=== PATIENT | female | born 1975 | race Caucasian/White ===

== ENCOUNTER 2016-07-28 11:09 | Inpatient (IN) | payer MEDICAID ==
[~2016-07-28] VITALS: Ht 177.8 cm; Wt 89.8 kg
[~2016-07-28 11:09] MED LIST: TYLENOL ES500 MG PO; UNISOM25 M1 PO
--- NOTE | 2016-07-28 11:17 | NUR ---
PT W/C ASSISTED TO BED 6.
[2016-07-28 11:19] VITALS: BP 158/107
--- NOTE | 2016-07-28 11:32 | NUR ---
40/F TO ED WITH C/O VOMITING AND ABD PAIN STARTING LAST NIGHT. PAIN 10/10. BOWEL SOUNDS PRESENT X4Q. LUNGS CLEAR BILAT. HR EVEN AND REGULAR. AAOX4. VSS. NO SIGNS OF DISTRESS.
[2016-07-28] MEDS ORDERED: PROMETHAZINE 25 MG/ML VIAL IVP ONE ×2 (11:40→13:55)
[2016-07-28] MEDS ORDERED: NACL 0.9% 1,000 ML IV ONE (11:40)
[2016-07-28] MEDS ORDERED: KETOROLAC 30 MG/ML VIAL IVP ONE (11:40)
--- NOTE | 2016-07-28 11:41 | NUR ---
Patient being evaluated by physician at bedside.
[2016-07-28] MEDS ORDERED: fentaNYL 0.05 MG/ML VIAL IVP ONE (11:50)
--- NOTE | 2016-07-28 12:38 | NUR ---
RPatient appears to be resting comfortably in bed. Vital Signs within normal limits. Respirations even and unlabored.
--- NOTE | 2016-07-28 13:18 | NUR ---
Patient appears to be resting comfortably in bed. Vital Signs within normal limits. Respirations even and unlabored.
[2016-07-28] MEDS ORDERED: cefTRIAXone 1,000 MG VIAL ONE (13:48)
--- NOTE | 2016-07-28 14:05 | NUR ---
PT REQUESTING MEDICATION FOR NAUSEA AND VOMITING
--- NOTE | 2016-07-28 14:29 | NUR ---
Patient will be admitted to care of DR MENSAH. Admited to MED SURG. Will go to room 105B. Belongings list completed. Report to MONY.
[2016-07-28] MEDS ORDERED: MORPHINE SULFATE 2 MG/ML SYR IVP PRN (14:45)
[2016-07-28] MEDS ORDERED: ONDANSETRON 4 MG/2 ML VIAL IVP PRN (14:45)
[2016-07-28] MEDS ORDERED: ACETAMINOPHEN 325 MG TAB PO PRN (14:45)
[2016-07-28] MEDS ORDERED: DOCUSATE SODIUM 100 MG GELCAP PO PRN (14:45)
[2016-07-28] MEDS ORDERED: HYDROcodone/APAP 5/325 MG 1 TAB TAB PO PRN (14:45)
[2016-07-28] MEDS ORDERED: KETOROLAC 30 MG/ML VIAL IM PRN (14:50)
[2016-07-28 15:00] VITALS: BP 128/87
--- NOTE | 2016-07-28 15:00 | NUR ---
PATIENT ADMITTED FROM ER WITH DX OF CHOLEDOCHOLITHIASIS. PATIENT AWAKE, ALERT, ORIENTED AND AMBULATORY. NO SOB. PATIENT BREATHING ON ROOM AIR. SKIN IS INTACT. IV LINE NOTED TO THE RIGHT AC SALINE LOCKED. PT C/O 10/ ABD PAIN. WILL MEDICATE. DR URIBE PRESENT AT BEDSIDE GETTING HX FROM THE PATIENT. BED LOWERED WITH CALL LIGHT WITHIN REACH. WILL CONTINUE TO MONITOR
[2016-07-28] MEDS: HYDROmorphone 1 MG/ML AMP IVP PRN ×3 (15:10→23:32)
[2016-07-28] MEDS ORDERED: NACL 0.9% IV ONE (15:20)
[2016-07-28] MEDS ORDERED: NACL 0.9% 2,000 ML IV ONE (15:45)
[2016-07-28] MEDS ORDERED: MAGNESIUM OXIDE 400 MG TAB PO SCH (16:50)
[2016-07-28] MEDS: GEMFIBROZIL 600 MG TAB PO SCH (17:32)
[2016-07-28] MEDS: NACL 0.9% 1,000 ML IV SCH (18:00)
--- NOTE | 2016-07-28 19:05 | NUR ---
BEDSIDE REPORT GIVEN TO [place] MARIN -NICCI. IVF INFUSING WELL. IN STABLE CONDITION.
--- NOTE | 2016-07-28 19:20 | NUR ---
RECEIVED PT IN STABLE CONDITION FROM AM NURSE. AWAKE,ALERT AND ORIENTED X4. MED SURG PT. AMBULATORY. WITH NO C/O PAIN AT THIS TIME. HAS IVF INFUSING WELL ON THE RT AC#20 , CLEAR AND PATENT. NPO EXCEPT MEDS DIET EXPLAINED. PLAN OF CARE DISCUSSED AND VERBALIZED UNDERSTANDING. CALL LIGHT PLACED WITHIN EASY REACH. BED ON LOW POSITION. WILL CONTINUE TO MONITOR.
[2016-07-28 19:35] VITALS: BP 148/97
[2016-07-28] MEDS: metroNIDAZOLE 500 MG/NS PREMIX 100 ML IV SCH (20:41)
[2016-07-28] MEDS: SACCHAROMYCES 250 MG CAP PO SCH (20:42)
--- NOTE | 2016-07-28 22:40 | NUR ---
PAGED DR. BUCHANAN, DR NANCI Love [facility] REPAIR . CALLED BACK . MADE AWARE THAT PT IS NPO EXCEPT MEDS AND PT WANTS TO TAKE SOME JUICE. DR. CHRISTINE SAID OK ONLY WITH ICE CHIPS.
--- NOTE | 2016-07-28 23:30 | NUR ---
IV ACCESS ON THE RT AC INFILTRATED. DISCONTINUED. STARTED A NEW IV ACCESS ON THE RT HANG#20. CLEAR AND PATENT.
[2016-07-28 23:31] VITALS: BP 126/84
--- NOTE | 2016-07-29 01:00 | NUR ---
SLEEPING AT THIS TIME. NO S/S OF ANY DISCOMFORT NOR PAIN NOTED.
[2016-07-29] MEDS: NACL 0.9% 1,000 ML IV SCH ×5 (01:07→18:48)
[2016-07-29] MEDS: HYDROmorphone 1 MG/ML AMP IVP PRN ×5 (03:42→21:49)
[2016-07-29] MEDS: metroNIDAZOLE 500 MG/NS PREMIX 100 ML IV SCH ×2 (04:52→13:13)
--- NOTE | 2016-07-29 05:00 | NUR ---
ASLEEP. NO S/S OF DISCOMFORT NOTED.
[2016-07-29] MEDS: PANTOPRAZOLE 40 MG TABEC PO SCH (06:29)
[2016-07-29] MEDS: GEMFIBROZIL 600 MG TAB PO SCH ×2 (06:29→17:06)
[2016-07-29] MEDS ORDERED: HYDROcodone/APAP 5/325 MG 1 TAB TAB PO PRN (06:35)
[2016-07-29] MEDS ORDERED: POTASSIUM CHLORIDE 20 MEQ, LIDOCAINE 1% 25 MG in NACL 0.9% 250 ML IV SCH (06:45)
[2016-07-29] MEDS ORDERED: MAGNESIUM OXIDE 400 MG TAB PO SCH (06:45)
--- NOTE | 2016-07-29 07:29 | NUR ---
C/O PAIN . MEDICATED FOR PAIN ORDERED. WILL CONTINUE TO MONITOR.
--- NOTE | 2016-07-29 07:30 | NUR ---
ASSUMED CONTINUITY OF CARE. NO SIGNS AND SYMPTOMS OF ACUTE DISTRESS NOTICED. INITIAL ASSESSMENT DONE. KEEP COMFORTABLE ON BED. EXPLAINED DIAGNOSIS, PLAN OF CARE, PAIN MANAGEMENT TEACHING, USE OF CALL LIGHT/BED/TV/BATHROOM. VERBALIZED UNDERSTANDING. CALL LIGHT WITHIN REACH.
--- NOTE | 2016-07-29 07:30 | NUR ---
ENDORSED PT IN STABLE CONDITION TO AM NURSE.
[2016-07-29] MEDS ORDERED: HYDROmorphone 1 MG/ML AMP IVP SCH (07:40)
[2016-07-29] MEDS ORDERED: SODIUM PHOS / POTASSIUM PHOS 1 PKT PDR PO SCH (07:45)
[2016-07-29 08:00] VITALS: BP 136/93
[2016-07-29] MEDS: CALCIUM CARBONATE 500 MG TAB PO SCH ×2 (08:42→20:17)
[2016-07-29] MEDS: SACCHAROMYCES 250 MG CAP PO SCH (08:42)
--- NOTE | 2016-07-29 09:03 | NUR ---
PATIENT HAS BEEN SCREENED AND CATEGORIZED MODERATE NUTRITION RISK. PATIENT WILL BE SEEN WITHIN 3-5 DAYS OF ADMISSION. 07/31/16-08/02/[address]
--- NOTE | 2016-07-29 10:42 | NUR ---
CM NOTE INITIAL REVIEW SENT TO [facility] FAX# [phone] PH# CHRIS [phone] AND TO [facility] FAX# [phone] PH# JOAN [phone]
--- NOTE | 2016-07-29 11:00 | NUR ---
DR. MCGREGOR [facility] CAME, CHECKED PT. CHART, AND SEEN PT..
--- NOTE | 2016-07-29 11:05 | NUR ---
PT TOLERATED MEDS WELL. DR MCGREGOR IN TO SEE PT. MD TO PERFORM EGD TODAY.
[2016-07-29 11:35] VITALS: BP 128/86
--- NOTE | 2016-07-29 11:43 | NUR ---
VSS. PT C/0 9/10 PAIN TO ABDOMEN. ADMINISTERED DILAUDID ORDERED. WILL CONTINUE TO MONITOR.
[2016-07-29] MEDS: SODIUM PHOS / POTASSIUM PHOS 1 PKT PDR PO SCH ×2 (12:00→17:34)
--- NOTE | 2016-07-29 13:16 | NUR ---
PT TOLERATED MEDS WELL. WILL CONTINUE TO MONITOR.
[2016-07-29] MEDS ORDERED: diphenhydrAMINE 50 MG/ML VIAL ONE (13:59)
[2016-07-29] MEDS ORDERED: MIDAZOLAM 2 MG/2 ML VIAL ONE (13:59)
[2016-07-29] MEDS ORDERED: fentaNYL 0.05 MG/ML VIAL ONE (13:59)
--- NOTE | 2016-07-29 14:30 | NUR ---
PT TOLERATED MEDS WELL. WILL CONTINUE TO MONITOR.
--- NOTE | 2016-07-29 15:15 | NUR ---
PATIENT TAKEN OUT OF UNIT FOR SURGERY.
[2016-07-29] MEDS ORDERED: MIDAZOLAM 2 MG/2 ML VIAL IVP ONE (15:35)
[2016-07-29] MEDS ORDERED: diphenhydrAMINE 50 MG/ML VIAL IVP ONE (15:35)
[2016-07-29] MEDS ORDERED: fentaNYL 0.05 MG/ML VIAL IVP ONE (15:35)
--- NOTE | 2016-07-29 15:42 | NUR ---
BACK FROM GI VIA GURNEY. NO SIGNS AND SYMPTOMS OF ACUTE DISTRESS NOTED. KEEP COMFORTABLE ON BED. EXPLAINED DIAGNOSIS, POST-OP CARE, PAIN MANAGEMENT TEACHING, USE OF CALL LIGHT/BED/TV/BATHROOM. VERBALIZED UNDERSTANDING. CALL LIGHT WITHIN REACH.
[2016-07-29 16:00] VITALS: BP 137/97
[2016-07-29] MEDS: SENNA 8.6 MG TAB PO SCH (17:06)
[2016-07-29] MEDS: METOCLOPRAMIDE 10 MG/2 ML INJ VIAL IVP SCH (17:08)
--- NOTE | 2016-07-29 17:10 | NUR ---
ADMINISTERED REGLAN ORDERED. PT TOLERATED WELL. PT SLEEPING, NO DISTRESS NOTED AT THIS TIME.
--- NOTE | 2016-07-29 17:52 | NUR ---
PT C/O 01/23 PAIN. BP 128/75, HR 75. ADMINISTERED DILAUDID ORDERED. PT TOLERATED WELL.
--- NOTE | 2016-07-29 19:15 | NUR ---
BEDSIDE REPORT GIVEN TO NEENA DAWSON -NICCI. IVF INFUSING WELL. IN STABLE CONDITION.
--- NOTE | 2016-07-29 19:16 | NUR ---
RECEIVED REPORT FROM NOLAN DAVIES FOR CONTINUITY OF CARE. PATIENT IS A&OX4, DISCUSSED PLAN OF CARE WITH PATIENT, VERBALIZED UNDERSTANDING. SHIFT ASSESSMENT DONE, VS TAKEN, PT IS IN STABLE CONDITION. NO S/S OF RESPIRATORY DISTRESS NOTED ON ROOM AIR. PATIENT STATES TOLERABLE PAIN IN ABDOMEN. SKIN INTACT. IV TO RT HAND 20 GAUGE PATENT AND INFUSING FLUIDS WELL. SAFETY PRECAUTIONS ENFORCED. DISCUSSED WITH PATIENT THAT SHE WILL BE NPO AFTER MIDNIGHT PER MD ORDER, VERBALIZED UNDERSTANDING. CALL LIGHT PLACED WITHIN REACH. WILL CONTINUE TO MONITOR.
[2016-07-29 20:00] VITALS: BP 129/77
--- NOTE | 2016-07-29 20:17 | NUR ---
DUE MEDICATIONS, TOLERATED WELL. PT REQUESTS IV PAIN MEDICATION, EDUCATED PT IT IS NOT DUE, VERBALIZED UNDERSTANDING. CALL LIGHT WITHIN REACH.
[2016-07-29] MEDS ORDERED: AMITRIPTYLINE 25 MG TAB PO SCH (21:00)
--- NOTE | 2016-07-29 21:00 | NUR ---
PT AMBULATING TO RESTROOM, VOIDED. C/O PAIN BUT REFUSED P.O. MEDS WANTS TO WAIT FOR IV MEDICATION. PROVIDED CHICKEN BROTH PER FULL LIQUID DIET. CALL LIGHT WITHIN REACH.
--- NOTE | 2016-07-29 21:49 | NUR ---
MEDICATED PATIENT FOR 10/10 ABDOMINAL PAIN. VS STABLE. CALL LIGHT WITHIN REACH.
[2016-07-30] VITALS: BP 109/73
[2016-07-30] MEDS: SODIUM PHOS / POTASSIUM PHOS 1 PKT PDR PO SCH ×2 (00:22→06:27)
--- NOTE | 2016-07-30 00:24 | NUR ---
VS TAKEN, STABLE. PT IS SLEEPING BUT WAKES UP EASILY. REINFORCED NPO STATUS. NO S/S OF DISTRESS OR DISCOMFORT NOTED. CALL LIGHT WITHIN REACH.
[2016-07-30] MEDS: HYDROmorphone 1 MG/ML AMP IVP PRN ×2 (02:07→06:27)
--- NOTE | 2016-07-30 02:07 | NUR ---
MEDICATED PATIENT FOR PAIN. CALL LIGHT WITHIN REACH.
--- NOTE | 2016-07-30 04:12 | NUR ---
PT IS SLEEPING. NO S/S OF DISTRESS NOTED. CALL LIGHT WITHIN REACH.
[2016-07-30] MEDS: PANTOPRAZOLE 40 MG TABEC PO SCH (06:27)
--- NOTE | 2016-07-30 06:30 | NUR ---
DUE MEDICATIONS ADMINISTERED, TOLERATED WELL. PT C/O 12/23 PAIN, MEDICATED PER MD ORDER. DOCTORS IN TO SEE PATIENT.
[2016-07-30] MEDS ORDERED: ALUMINUM HYD/MAG/SIMETHICONE 30 ML UDC PO SCH (07:00)
[2016-07-30] MEDS ORDERED: DICYCLOMINE 10 MG CAP PO SCH (07:00)
[2016-07-30] MEDS ORDERED: MAGNESIUM OXIDE 400 MG TAB PO SCH (07:17)
--- NOTE | 2016-07-30 07:25 | NUR ---
ENDORSED PATIENT TO KARINA GRAJEDA FOR CONTINUITY OF CARE, PATIENT IS IN STABLE CONDITION.
--- NOTE | 2016-07-30 07:26 | NUR ---
RECEIVED REPORT FROM THE LOOM SETTER NURSE AT BEDSIDE FOR CONTINUITY OF CARE. PT IS ALERT AND ORIENTED. SHE HAS SOME ABDOMINAL PAIN. NOTED IV ON R HAND 20G NS AT 80ML/HR. PT'S SKIN IS INTACT. CAME INTO SEE PT EARLY THIS MORNING. PER MD, D/C THIS MORNING AFTER BREAKFAST. NO OTHER COMPLAINTS. ALL SAFETY MEASURES IN PLACE. WILL CONTINUE TO MONITOR PT.
[2016-07-30] MEDS ORDERED: PROTONIX40 MG PO (07:41)
[2016-07-30] MEDS ORDERED: NORCO 10-325 T1 EACH PO (07:42)
[2016-07-30] MEDS ORDERED: COLACE100 M1 PO (07:43)
[2016-07-30 08:00] VITALS: BP 125/83
[2016-07-30] MEDS: CALCIUM CARBONATE 500 MG TAB PO SCH (08:26)
[2016-07-30] MEDS: METOCLOPRAMIDE 10 MG/2 ML INJ VIAL IVP SCH (08:27)
[2016-07-30] MEDS: GEMFIBROZIL 600 MG TAB PO SCH (08:27)
[2016-07-30] MEDS: SENNA 8.6 MG TAB PO SCH (08:28)
[2016-07-30] MEDS ORDERED: LACTOBACILLUS RHAMNOSUS GG 1 EACH CAP PO SCH (09:00)
--- NOTE | 2016-07-30 10:00 | NUR ---
GAVE PT HER DC INSTRUCTIONS. ANSWERED ALL QUESTIONS. PT VERBALIZED UNDERSTANDING. SIGNED APPROPRIATE FORMS. REMOVED HER IV, CANNULA INTACT. REMOVED HER ARM BAND. REMINDED HER TO FOLLOW UP WITH HER PCP IN 3 DAYS, P/U HER RX AT THE PHARMACY AND RESUME HOME MEDS. PT STABLE. CHANGED INTO HER PERSONAL CLOTHES. WILL GATHER HER THINGS. FAMILY MEMBER WENT OUT TO GET THE CAR. WILL HAVE GARCÍA DEGROOT WHEEL PT OUT.
--- NOTE | 2016-07-30 10:05 | NUR ---
CM NOTE CONCURRENT REVIEW SENT TO [facility] FAX# [phone] PH# CHRIS [phone] AND TO [facility] FAX# [phone] PH# JOAN [phone]
--- NOTE | 2016-07-30 10:15 | NUR ---
GARCÍA DEGROOT IS WHEELING PT OUT. HER FAMILY MEMBER IS IN THE PARKING LOT WAITING FOR HER. PT IS STABLE. TAKING ALL HER PERSONAL BELONGINGS WITH HER INCLUDING D/C PACKET.
== END 2016-07-30 10:15 | disposition home or self-care (01) | DRG 241 ==
LOC: MED 11:09 → MTU 14:13
PROVIDERS: ADMIT Family Medicine; ATTEND Family Medicine
PROC: 0DB68ZX Excision of Stomach, Via Natural or Artificial Opening Endoscopic, Diagnostic (ICD-10-PCS; principal; 2016-07-29 14:30)
DX: K29.00 Acute gastritis without bleeding (principal); K76.0 Fatty (change of) liver, not elsewhere classified; E83.42 Hypomagnesemia; F41.9 Anxiety disorder, unspecified; E87.6 Hypokalemia; E83.51 Hypocalcemia; E83.39 Other disorders of phosphorus metabolism; D53.9 Nutritional anemia, unspecified; E66.9 Obesity, unspecified; F12.90 Cannabis use, unspecified, uncomplicated; F11.90 Opioid use, unspecified, uncomplicated; F17.210 Nicotine dependence, cigarettes, uncomplicated; Z79.899 Other long term (current) drug therapy; Z72.89 Other problems related to lifestyle; Z68.28 Body mass index [BMI] 28.0-28.9, adult

== ENCOUNTER 2016-08-27 23:05 | Emergency (ER) | payer MEDICAID ==
[~2016-08-27] VITALS: Ht 180.3 cm; Wt 86.2 kg
[~2016-08-27 23:05] MED LIST changes: +ACET-2858 PO; +ACET-6134 PO; +DOCU-67 PO; +DOXY25TA22 PO; +PANT40EC PO; -TYLENOL ES500 MG PO; -UNISOM25 M1 PO
[2016-08-27 23:16] VITALS: BP 153/96
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
--- NOTE | 2016-08-27 23:48 | NUR ---
ANDRA PARHAM WILL SEND PATROL UNIT OUT TO [facility]
--- NOTE | 2016-08-28 00:07 | NUR ---
PT SEEN SPEAKING WITH PD OUTSIDE ER
--- NOTE | 2016-08-28 01:00 | NUR ---
PATIENT LEFT WITHOUT BEING SEEN BY DR. WINSTON. NO FURTHER CARE PROVIDED FOR PATIENT.
== END 2016-08-28 01:00 | disposition left against medical advice (07) ==
LOC: MED 23:05
DX: R42 Dizziness and giddiness (principal); Z53.21 Procedure and treatment not carried out due to patient leaving prior to being seen by health care provider

== ENCOUNTER 2016-09-30 15:54 | Emergency (ER) | payer MEDICAID ==
[~2016-09-30] VITALS: Ht 180.3 cm; Wt 108.9 kg
[~2016-09-30 15:54] MED LIST changes: -ACET-2858 PO; -ACET-6134 PO; +COLACE100 M1 PO; -DOCU-67 PO; -DOXY25TA22 PO; +NORCO 10-325 T1 EACH PO; -PANT40EC PO; +PROTONIX40 MG PO; +TYLENOL ES500 MG PO; +UNISOM25 M1 PO
[2016-09-30 16:27] VITALS: BP 151/92
--- NOTE | 2016-09-30 17:37 | NUR ---
Patient ambulated to bed 4. RN evaluating patient at bedside.
--- NOTE | 2016-09-30 17:40 | NUR ---
PT PRESENTS TO ER W/C/O RUQ PAIN X2 MONTHS. HX GALLSTONES, HTN, ANXIETY; DENIES DIARRHEA; SKIN IS PINK/WARM/DRY; AAOX4 WITH EVEN AND STEADY GAIT; LUNGS CLEAR BL; HR EVEN AND REGULAR; PT DENIES ANY FEVER, CP, SOB, OR COUGH AT THIS TIME; PATIENT STATES PAIN OF 9/10 AT THIS TIME; VSS; PATIENT POSITIONED FOR COMFORT; HOB ELEVATED; BEDRAILS UP X2; BED DOWN. ER MD MADE AWARE OF PT STATUS.
[2016-09-30] MEDS ORDERED: ONDANSETRON 4 MG/2 ML VIAL IVP ONE (17:45)
[2016-09-30] MEDS ORDERED: MORPHINE SULFATE 4 MG/ML SYR IVP ONE (17:45)
--- NOTE | 2016-09-30 18:14 | NUR ---
Patient taken to CT scan via wheelchair by tech.
--- NOTE | 2016-09-30 18:45 | NUR ---
PT WHEEL CHAIR ASSISTED TO THE RESTROOM FOR URINE SAMPLE
--- NOTE | 2016-09-30 19:12 | NUR ---
REPORT GIVEN TO NICCI MCLEAN
--- NOTE | 2016-09-30 19:22 | NUR ---
report received from NICCI HANSEN.
--- NOTE | 2016-09-30 19:23 | NUR ---
PT ALERT/ORIENTED. C/O ABD PAIN, 01/23
--- NOTE | 2016-09-30 19:57 | NUR ---
Dr. Bass re-evaluating patient at bedside.
[2016-09-30 20:16] VITALS: BP 151/92
== END 2016-09-30 20:17 | disposition home or self-care (01) ==
LOC: MED 15:54
DX: R10.9 Unspecified abdominal pain (principal); I10 Essential (primary) hypertension; F17.210 Nicotine dependence, cigarettes, uncomplicated
CPT/HCPCS: 36415; 74176; 80053; 81025; 83690; 84703; 85025; 96374; 96375; 99285; J2270; J2405

== ENCOUNTER 2017-01-05 01:15 | Emergency (ER) | payer MEDICAID ==
[~2017-01-05] VITALS: Ht 180.3 cm; Wt 92.1 kg
[~2017-01-05 01:15] MED LIST changes: +ACET-2858 PO; +ACET-6134 PO; -COLACE100 M1 PO; +DOCU-67 PO; +DOXY25TA22 PO; -NORCO 10-325 T1 EACH PO; +PANT40EC PO; -PROTONIX40 MG PO; -TYLENOL ES500 MG PO; -UNISOM25 M1 PO
[2017-01-05 01:24] VITALS: BP 160/105
[2017-01-05] MEDS ORDERED: LORazepam 1 MG TAB PO ONE (04:45)
[2017-01-05 05:38] LABS: BARBITURATE, URINE NEG. ng/ml (NEG <=200); BENZODIAZEPINE, URINE NEG. ng/mL (NEG <=200); CANNABINOID, URINE POS. ng/mL (NEG <=50); COCAINE, URINE NEG. ng/mL (NEG <=300); OPIATE, URINE NEG. ng/mL (NEG <=2000); PHENCYCLIDINE SCREEN,URINE NEG. ng/mL (NEG <=25)
== END 2017-01-05 05:50 | disposition home or self-care (01) ==
LOC: MED 01:15
DX: L97.909 Non-pressure chronic ulcer of unspecified part of unspecified lower leg with unspecified severity (principal); F15.10 Other stimulant abuse, uncomplicated; I10 Essential (primary) hypertension
CPT/HCPCS: 80305; 99283

== ENCOUNTER 2018-03-05 09:07 | Emergency (ER) | payer MEDICAID ==
[~2018-03-05] VITALS: Ht 180.3 cm; Wt 77.6 kg
[~2018-03-05 09:07] MED LIST changes: -ACET-2858 PO; +DOCU-299 PO; -DOCU-67 PO; +HYDR-5092 PO
[2018-03-05 09:18] VITALS: BP 150/105
[2018-03-05 09:49] VITALS: BP 150/105
== END 2018-03-05 09:50 | disposition left against medical advice (07) ==
LOC: MED 09:07
DX: R51 Headache (principal); K13.79 Other lesions of oral mucosa; Z53.21 Procedure and treatment not carried out due to patient leaving prior to being seen by health care provider; Y04.0XXA Assault by unarmed brawl or fight, initial encounter

== ENCOUNTER 2021-07-13 12:47 | Inpatient (IN) | payer MEDICAID, SELFPAY ==
[~2021-07-13] VITALS: Ht 180.3 cm; Wt 99.8 kg
[2021-07-13 12:47] VITALS: BP 111/55
[~2021-07-13 12:47] MED LIST changes: -ACET-6134 PO; +AMIT25TA29 PO; -DOCU-299 PO; -DOXY25TA22 PO; +FURO40TA9 PO; -HYDR-5092 PO; +LEVO750T51 PO; +SPIR50TA4 PO; +SULF-59 PO
--- NOTE | 2021-07-13 12:47 | NUR ---
45 y/o f biba for flu type symptoms x 2 days, +NVD, SOB, COUGH, FEVER NKDA PMD: CHF, GALBLADDER REMOVAL X 1 MONTH AGO AT REPLACED BY [facility]
--- NOTE | 2021-07-13 12:48 | NUR ---
SUZANNE JACKMAN VIA GURNEY TO BED 02.
--- NOTE | 2021-07-13 14:04 | NUR ---
DR HUMPHREY AT BEDSIDE FOR MSE
[2021-07-13] MEDS ORDERED: PANTOPRAZOLE 40 MG INJ VIAL IVP ONE (14:10)
[2021-07-13] MEDS ORDERED: MORPHINE SULFATE 4 MG/ML SYR IVP ONE (14:10)
[2021-07-13] MEDS ORDERED: ONDANSETRON 4 MG/2 ML VIAL IVP ONE (14:10)
--- NOTE | 2021-07-13 14:32 | NUR ---
ekg being done by rn students
[2021-07-13 14:37] LABS: BASOPHILS % (AUTO) 0.5 % (0.0-2.0); EOSINOPHILS # (AUTO) 0.2 K/uL (0-0.4); EOSINOPHILS % (AUTO) 1.8 % (0.0-4.0); HEMATOCRIT 26.7 % (36-48); HEMOGLOBIN 8.9 g/dL (12.0-16.0); LYMPHOCYTES # (AUTO) 1.1 K/uL (2.5-16.5); LYMPHOCYTES % (AUTO) 12.5 % (20.5-51.1); MEAN CORPUSCULAR HEMOGLOBIN 34 pg (27-31); MEAN CORPUSCULAR HGB CONC 33 g/dL (33-37); MEAN CORPUSCULAR VOLUME 103.6 fL (80-94); MONOCYTES # (AUTO) 0.8 K/uL (0.8-1.0); NEUTROPHILS # (AUTO) 6.4 K/uL (1.8-7.7); NEUTROPHILS % (AUTO) 76.2 % (42.2-75.2); PLATELET COUNT (AUTO) 267 K/uL (140-450); RED BLOOD CELL COUNT(AUTO) 2.57 MIL/uL (4.20-5.40); RED CELL DISTRIBUTION WIDTH 16.3 % (11.6-13.7); WHITE BLOOD COUNT (AUTO) 8.5 K/uL (4.8-10.8)
[2021-07-13 14:58] LABS: ALBUMIN 1.7 g/dL (3.4-5.0); ANION GAP 9.7 (8-16); CARBON DIOXIDE 29.4 mmol/L (21-32); CREATININE 0.6 mg/dL (0.6-1.3); POTASSIUM 3.1 mmol/L (3.5-5.1)
[2021-07-13 15:08] LABS: BARBITURATE, URINE NEGATIVE ng/ml (NEG <=200); BENZODIAZEPINE, URINE POSITIVE ng/mL (NEG <=200); CANNABINOID, URINE NEGATIVE ng/mL (NEG <=50); COCAINE, URINE NEGATIVE ng/mL (NEG <=300); OPIATE, URINE POSITIVE ng/mL (NEG <=2000); PHENCYCLIDINE SCREEN,URINE NEGATIVE ng/mL (NEG <=25)
--- NOTE | 2021-07-13 15:22 | NUR ---
xr at bedside to do portable cxr
--- NOTE | 2021-07-13 17:19 | NUR ---
Patient will be admitted to care of Dr Gonzáles. Admited to [facility]. Will go to room 105-B. Belongings list completed. Report to NICCI Jose.
[2021-07-13] MEDS: DEXT 5% /NACL 0.9% 1,000 ML IV SCH (17:45)
[2021-07-13 18:00] VITALS: BP 114/53
[2021-07-13] MEDS ORDERED: ONDANSETRON 4 MG/2 ML VIAL IM/IVP PRN (18:25)
[2021-07-13] MEDS ORDERED: guaiFENesin DM 200/20 MG-10 ML 10 ML UDC PO PRN (18:25)
[2021-07-13] MEDS ORDERED: DOCUSATE SODIUM 100 MG GELCAP PO PRN (18:25)
[2021-07-13] MEDS ORDERED: HYDROcodone/APAP 7.5/325 MG 1 TAB PO PRN (18:25)
[2021-07-13] MEDS ORDERED: ACETAMINOPHEN 325 MG TAB PO PRN (18:25)
[2021-07-13] MEDS ORDERED: ZOLPIDEM 5 MG TAB PO PRN (18:25)
[2021-07-13 19:39] LABS: PROTHROMBIN TIME 15.8 secs (10.8-13.4)
[2021-07-13] MEDS ORDERED: LACTULOSE 20 GM/30 ML UDC ONE (19:49)
[2021-07-13 19:51] LABS: CHOL/HDL RATIO 9.8 (1-4.5); FREE T4 (FREE THYROXINE) 1.61 ng/dL (0.76-1.46); MAGNESIUM 1.5 mg/dL (1.8-2.4); PHOSPHORUS 3.6 mg/dL (2.5-4.9); THYROID STIMULATING HORMONE 3.5 uIU/mL (0.34-3.74)
[2021-07-13] MEDS: LACTULOSE 20 GM/30 ML UDC PO SCH (19:58)
[2021-07-13 20:00] VITALS: BP 103/52
--- NOTE | 2021-07-13 20:00 | NUR ---
RECEIVED BEDSIDE REPORT FROM DAY RN FOR CONTINUITY OF CARE. RECEIVED PATIENT A/A/OX4, SITTING UP IN BED WATCHING TV. PATIENT COMPLAINING OF BLE AND ABDOMINAL AND REQUESTED TO HAVE A STRONGER PAIN MEDICATION BESIDES NORCO AND STARTED NORCO DOESN'T WORK FOR HER. OTHERWISE NO OTHER COMPLAIN AT THIS TIME. IVF INFUSING ORDERED. FALL PRECAUTION IMPLEMENTED. INSTRUCTED THE PATIENT TO CALL FOR ASSISTANCE AT ALL TIMES AND VERBALIZED UNDERSTANDING. CALL LIGHT WITHIN REACH. WILL CONTINUE OBSERVATION.
[2021-07-13] MEDS ORDERED: MAGNESIUM OXIDE 400 MG TAB PO PRN (20:50)
[2021-07-13] MEDS ORDERED: MAGNESIUM OXIDE 400 MG TAB ONE (20:53)
[2021-07-13] MEDS: MORPHINE SULFATE 2 MG/ML SYR IVP PRN (20:57)
[2021-07-13] MEDS: POTASSIUM CHLORIDE 10 MEQ TABER PO PRN (21:00)
[2021-07-13 21:43] LABS: APPEARANCE,URINE CLOUDY (CLEAR); BILIRUBIN,URINE 2+ (NEGATIVE); BLOOD, URINE NEGATIVE (NEGATIVE); COLOR,URINE YELLOW (YELLOW); LEUKOCYTE ESTERASE ,URINE 1+ (NEGATIVE); NITRITE, URINE NEGATIVE (NEGATIVE); UGLUCOSE NEGATIVE (NEGATIVE)
[2021-07-13 21:54] LABS: RBC,URINE NONE SEEN /HPF (0-5)
[2021-07-13 21:55] LABS: URINE AMORPHOUS URATE 4+ /HPF (None Seen)
--- NOTE | 2021-07-13 22:00 | NUR ---
ALL DUE MEDS GIVEN AND PATIENT TOLERATED IT WELL. NO COMPLAIN FROM THE PATIENT AND NO ADVERSE DRUG REACTION NOTED. CALL LIGHT WITHIN REACH.
--- NOTE | 2021-07-14 | NUR ---
PATIENT STILL AWAKE AT THIS TIME AND GOT UP WITH ASSISTANCE TO USE THE COMMODE. NO COMPLAIN OF PAIN AT THIS TIME.
--- NOTE | 2021-07-14 02:00 | NUR ---
PATIENT CALLED FOR BEDPAN. HAD ANOTHER WATERY STOOL,MINIMAL. THIS IS BM X3.
[2021-07-14 04:00] VITALS: BP 114/87
--- NOTE | 2021-07-14 04:38 | NUR ---
PATIENT CALLED AND ASKED FOR BEDPAN . PATIENT STILL HAVING WATERY BM , YELLOWISH IN COLOR. PATIENT WAS GIVEN A LACTULOSE SCHEDULED.
[2021-07-14] MEDS: MORPHINE SULFATE 2 MG/ML SYR IVP PRN ×5 (05:01→21:36)
[2021-07-14 06:07] LABS: ANION GAP 9.4 (8-16); CARBON DIOXIDE 28.3 mmol/L (21-32); CREATININE 0.7 mg/dL (0.6-1.3)
[2021-07-14 06:16] LABS: POTASSIUM 2.7 mmol/L (3.5-5.1)
[2021-07-14] MEDS: POTASSIUM CHLORIDE 10 MEQ TABER PO PRN (06:27)
--- NOTE | 2021-07-14 06:28 | NUR ---
MESSAGED DR BENITES REGARDING THE PATIENT LATEST K LEVEL 2.7. GAVE PRN POTASSIUM 40 MEQ PO ORDERED PRN. ALSO MESSAGED DR BENITES REGARDING THE PATIENT REQUEST FOR ANXIETY MEDICATION. STILL AWAITING FOR MD TO REPLY.
--- NOTE | 2021-07-14 06:36 | NUR ---
PATIENT STABLE. NO ACUTE EVENT THROUGHOUT THE NIGHT. PT NOT IN ANY DISTRESS AND NO COMPLAIN AT THIS TIME. ALL NEEDS ATTENDED. CALL LIGHT WITHIN REACH. WILL ENDORSE THE PATIENT TO THE ONCOMING RN FOR CONTINUITY OF CARE.
[2021-07-14 06:37] LABS: BASOPHILS % (AUTO) 0.3 % (0.0-2.0); EOSINOPHILS # (AUTO) 0.2 K/uL (0-0.4); EOSINOPHILS % (AUTO) 2.9 % (0.0-4.0); HEMATOCRIT 24.2 % (36-48); LYMPHOCYTES # (AUTO) 1.1 K/uL (2.5-16.5); LYMPHOCYTES % (AUTO) 14.5 % (20.5-51.1); MEAN CORPUSCULAR HEMOGLOBIN 34 pg (27-31); MEAN CORPUSCULAR HGB CONC 33 g/dL (33-37); MEAN CORPUSCULAR VOLUME 103.6 fL (80-94); MONOCYTES # (AUTO) 0.6 K/uL (0.8-1.0); MONOCYTES % (AUTO) 8.6 % (1.7-9.3); NEUTROPHILS # (AUTO) 5.4 K/uL (1.8-7.7); NEUTROPHILS % (AUTO) 73.7 % (42.2-75.2); PLATELET COUNT (AUTO) 217 K/uL (140-450); RED BLOOD CELL COUNT(AUTO) 2.33 MIL/uL (4.20-5.40); RED CELL DISTRIBUTION WIDTH 16.2 % (11.6-13.7); WHITE BLOOD COUNT (AUTO) 7.3 K/uL (4.8-10.8)
--- NOTE | 2021-07-14 07:29 | NUR ---
ENDORSED PT TO DAY RN . PT STABLE. SIGNING OFF.
--- NOTE | 2021-07-14 07:30 | NUR ---
RECEIVED REPORT FROM CREDIT UNION MANAGER NURSE FOR CONTINUITY OF CARE. PT'S K LEVEL IS 2.7, CREDIT UNION MANAGER NURSE STATED GIVEN PO POTASSIUM. PT AWAKE IN BED. ON O2 3L NC, BREATHING SYMMETRICAL. NO C/O PAIN AT THIS TIME. WITH R WRIST 22G RUNNING D5NS AT 50CC/HR. CALL LIGHT WITHIN REACH. ALL SAFETY MEASURES IN PLACE.
[2021-07-14 08:00] VITALS: BP 111/68
[2021-07-14] MEDS: LACTULOSE 20 GM/30 ML UDC PO SCH ×2 (09:00→20:04)
[2021-07-14] MEDS: POTASSIUM CHLORIDE 10 MEQ TABER PO SCH (09:26)
[2021-07-14] MEDS: NIACIN 500 MG TAB PO SCH ×2 (09:26→20:04)
[2021-07-14] MEDS: PANTOPRAZOLE 40 MG TABEC PO SCH (09:29)
--- NOTE | 2021-07-14 09:41 | NUR ---
PT REFUSED LACTULOSE, EXPLAINED RISK AND BENEFITS STILL REFUSED.
[2021-07-14] MEDS ORDERED: DEXTROSE 50% 50 ML SYR IVP PRN (10:00)
[2021-07-14] MEDS ORDERED: INSULIN LISPRO SLIDING SCALE 100 UNITS/ML VIAL SUBQ PRN (10:00)
--- NOTE | 2021-07-14 10:54 | NUR ---
PATIENT HAS BEEN SCREENED AND CATEGORIZED HIGH NUTRITION RISK. PATIENT WILL BE SEEN WITHIN 1-2 DAYS OF ADMISSION. ARMANDO BURNH[address] RD
[2021-07-14] MEDS: BLOOD GLUCOSE MONITORING 1 DEV DEV FS SCH ×3 (11:57→20:10)
--- NOTE | 2021-07-14 13:20 | NUR ---
PT IN BED, AWAKE/ALERT. RESPIRATION EVEN AND UNLABORED. CALL LIGHT WITHIN REACH. ALL SAFETY MEASURES IN PLACE. ENCOURAGED TO ALWAYS CALL FOR ASSISTANCE.
[2021-07-14] MEDS: DEXT 5% /NACL 0.9% 1,000 ML IV SCH (13:40)
--- NOTE | 2021-07-14 14:36 | NUR ---
DC PLANNING: THE PATIENT ADMITTED FROM HOME WITH C/O ABDOMINAL PAIN AND LE EDEMA. H/O CHOLECYSTECTOMY, ETOH ABUSE AND CIRRHOSIS. AMMONIA ELEVATED AT 55, BNP 260, ELECTROLYTES DECREASED.ON IVF'S AND ROCEPHINJennifer. CM SPOKE WITH THE PATIENT AT BEDSIDE AND CONFIRMED HER ADDRESS AND PHONE NUMBER PER HER FACE SHEET. THE PATIENT LIVES ALONE IN A THIRD STORY APARTMENT AND ADMITS TO NON-COMPLIANCE WITH MEDICATIONS BECAUSE THEY WEREN'T PICKED UP. ALSO HASN'T SEEN HER PCP IN RECENT MONTHS BUT DOES SEE A PSYCHOLOGIST/PSYCHIATRIST IN [place] BUT HAS REFUSED MEDICATIONS RECOMMENDED BY THEM. HAS INCOME SOURCE OF [employer] AND FOOD STAMPS, STATES HE EX- DOES HER SHOPPING AND HER SON HELPS WITH OTHER NEEDS WHEN HE'S AVAILABLE. THE PATIENT WAS GIVEN RESOURCES ON HER LAST ADMISSION OF [facility] PHONE NUMBER AND SSI/DISABILITY INFORMATION, THE PATIENT DID NOT FOLLOW UP AND STATES IT WAS ON HER TO DO LIST. THE PATIENT IS ABLE TO AMBULATE IN HER APARTMENT AND HAS DME OF A FWW AND 3 IN 1 COMMODE. IS REQUESTING A NEW FWW AND RAISED TOILET SEAT. DC PLAN IS TO RETURN HOME, CM WILL SPEAK WITH HER INSURANCE ABOUT HOME HEALTH AND DME. DENISA WILL FOLLOW. Addendum: 07/14/21 at 1449 by Mary King CM Amended: Links added. Addendum: 07/16/21 at 1332 by Catarina Barraza RN DC PLANNING: ARRANGED TRANSPORT WITH [facility] -CALL -A -CAR [phone] OPT 4 OPT 1 SPOKE WITH [facility] PROVIDE CONFIRMATION NUMBER [id number] AND WILL CALL WITH ETA. CRAWLEY TO FOLLOW Addendum: 07/16/21 at 1344 by Catarina Barraza RN DC PLANNING: RECEIVED A CALL FROM [facility] SPOKE WITH [facility] WILL PICK HER UP AT 2PM NOTIFIED MARCELLUS BANDA CM TO FOLLOW
[2021-07-14 16:00] VITALS: BP 112/64
--- NOTE | 2021-07-14 17:22 | NUR ---
PT AWAKE IN BED. ASSISTED STANDING UP TO USE BEDSIDE COMMODE. ENCOURAGED TO ALWAYS CALL FOR ASSISTANCE AND NOT TO GET UP BY HERSELF. CALL LIGHT WITHIN REACH. FREQUENT ROUNDS DONE. ALL SAFETY MEASURES IN PLACE.
[2021-07-14 20:00] VITALS: BP 116/57
--- NOTE | 2021-07-15 00:25 | NUR ---
pt/ c/o pain from feeling tightness on her legs. noted plus 2 pitting edema drew lower extremities Linnotified. no new orders. will monitor for now.
[2021-07-15] MEDS: MORPHINE SULFATE 2 MG/ML SYR IVP PRN ×5 (01:52→20:49)
[2021-07-15 04:00] VITALS: BP 107/58
[2021-07-15] MEDS: BLOOD GLUCOSE MONITORING 1 DEV DEV FS SCH ×4 (06:02→21:30)
[2021-07-15 06:40] LABS: BASOPHILS % (AUTO) 0.6 % (0.0-2.0); EOSINOPHILS # (AUTO) 0.4 K/uL (0-0.4); EOSINOPHILS % (AUTO) 4.4 % (0.0-4.0); HEMOGLOBIN 7.3 g/dL (12.0-16.0); LYMPHOCYTES # (AUTO) 1.3 K/uL (2.5-16.5); LYMPHOCYTES % (AUTO) 16.5 % (20.5-51.1); MEAN CORPUSCULAR HEMOGLOBIN 35 pg (27-31); MEAN CORPUSCULAR HGB CONC 33 g/dL (33-37); MEAN CORPUSCULAR VOLUME 104.3 fL (80-94); MONOCYTES # (AUTO) 0.8 K/uL (0.8-1.0); MONOCYTES % (AUTO) 9.6 % (1.7-9.3); NEUTROPHILS # (AUTO) 5.5 K/uL (1.8-7.7); NEUTROPHILS % (AUTO) 68.9 % (42.2-75.2); PLATELET COUNT (AUTO) 189 K/uL (140-450); RED BLOOD CELL COUNT(AUTO) 2.11 MIL/uL (4.20-5.40); RED CELL DISTRIBUTION WIDTH 16.3 % (11.6-13.7)
[2021-07-15 06:59] LABS: ANION GAP 11.9 (8-16); CARBON DIOXIDE 25.2 mmol/L (21-32); CREATININE 0.8 mg/dL (0.6-1.3); POTASSIUM 3.1 mmol/L (3.5-5.1)
[2021-07-15 07:08] LABS: T4 (THYROXINE) 7.8 ug/dL (4.5-12.0)
[2021-07-15] MEDS: DEXT 5% /NACL 0.9% 1,000 ML IV SCH ×2 (09:10→21:25)
[2021-07-15] MEDS: POTASSIUM CHLORIDE 10 MEQ TABER PO SCH (09:24)
[2021-07-15] MEDS: PANTOPRAZOLE 40 MG TABEC PO SCH (09:24)
[2021-07-15] MEDS: NIACIN 500 MG TAB PO SCH ×2 (09:25→21:21)
[2021-07-15] MEDS: LACTULOSE 20 GM/30 ML UDC PO SCH ×2 (09:25→21:00)
[2021-07-15] MEDS ORDERED: HYDROmorphone 1 MG/ML AMP IVP PRN (11:50)
[2021-07-15] MEDS ORDERED: FUROSEMIDE 40 MG/4 ML VIAL IVP SCH (12:03)
[2021-07-15] MEDS: GABAPENTIN 100 MG CAP PO SCH ×2 (13:07→16:47)
[2021-07-15 16:00] VITALS: BP 104/55
--- NOTE | 2021-07-15 16:02 | NUR ---
07/15/21 RD INITIAL ASSESSMENT COMPLETED PLEASE REFER TO NUTRITION ASSESSMENT UNDER CARE ACTIVITY FOR ESTIMATED NUTRITIONAL NEEDS. 1. CONTINUE HEPATIC DIET (40 GM PROTEIN, 2 GM SODIUM) TOLERATED 2. RECOMMEND ORAL SUPPLEMENTS IF PT PO INTAKE CONTINUES TO BE < 75% 3. PROVIDED NUTRITION EDUCATION FOR LIVER CIRRHOSIS WITH HANDOUTS 4. RD TO FOLLOW-UP 3-5 DAYS, MODERATE RISK ARMANDO BURNHAM RD
[2021-07-15] MEDS: FUROSEMIDE 40 MG/4 ML VIAL IVP SCH (16:47)
--- NOTE | 2021-07-15 19:40 | NUR ---
ENDORSED PT TO ENERGY EFFICIENT SITE MANAGER NURSE FOR CONTINUITY OF CARE.
--- NOTE | 2021-07-15 19:41 | NUR ---
RECD. RESTING IN BED, SLEEPING COMFORTABLY, BUT EASILY AROUSABLE. SKIN INTACT WITH JAUNDICE. RESPIRATION EVEN AND UNLABORED. ON 02 AT 2 LITERS VIA N/C. SAFETY MEASURES ENFORCED. BED IN THE LOWEST POSITION, CALL LIGHT IN REACH. NO APPEARANCE OF PAIN NOTED 0/10.
[2021-07-16] VITALS: BP 103/58
--- NOTE | 2021-07-16 01:10 | NUR ---
WANTS PAIN MEDICATION, BP TAKEN - 102/58, HR - 92. EXPLAINED THAT SHE CANNOT BE GIVEN MORPHINE AT THIS TIME BECAUSE HER BP IS LOW. NORCO WAS OFFERED BUT REFUSED. STATED "IT DOES NOT WORK ON ME". TEACHINGS GIVEN ON THE SIDE EFFECTS OF MORPHINE, NEEDS REINFORCEMENT. STILL INSISTING THAT EVEN HER BP IS LOW, DILAUDID WAS GIVEN TO HER. ASSURED THAT BP WILL BE CHECKED AGAIN AFTER ONE HOUR.
--- NOTE | 2021-07-16 01:20 | NUR ---
WANTS TO COMPLAINED TO THE NURSE FUR POLISHER REGARDING HER PAIN MEDICATION NOT GIVEN ON TIME. NURSE FUR POLISHER TITA BENITES.
[2021-07-16] MEDS: MORPHINE SULFATE 2 MG/ML SYR IVP PRN ×2 (03:03→10:53)
--- NOTE | 2021-07-16 03:03 | NUR ---
BP CHECKED = 111/64, HR - 96, MEDICATED WITH MORPHINE PER MD ORDER BY CHARGE NURSE NAE.
[2021-07-16] MEDS: DEXT 5% /NACL 0.9% 1,000 ML IV SCH (05:10)
--- NOTE | 2021-07-16 05:30 | NUR ---
CALLED TO BE ASSISTED TO A BEDPAN, VERBALIZED IT IS HARD FOR HER TO GET OUT OF BED DUE TO TO HER BLE EDEMA. ABLE TO VOID 200 ML OF CLOUDY URINE. ENCOURAGE TO DRINK MORE FLUIDS.
--- NOTE | 2021-07-16 06:35 | NUR ---
PER RADAR SIGNAL PROCESSING ENGINEER TITA, DR. BENITES RETURNED HIS MESESAGE. NOT TO GIVE MORPHINE IF THE BP IS LOW, ALWAYS CHECK BP BEFORE GIVING PAIN MEDICATION.
[2021-07-16] MEDS: BLOOD GLUCOSE MONITORING 1 DEV DEV FS SCH ×2 (06:38→11:30)
--- NOTE | 2021-07-16 07:20 | NUR ---
ENDORSED TO AM NURSE FOR CONTINUITY OF CARE.
[2021-07-16 07:22] LABS: BASOPHILS % (AUTO) 0.4 % (0.0-2.0); EOSINOPHILS # (AUTO) 0.3 K/uL (0-0.4); EOSINOPHILS % (AUTO) 4.2 % (0.0-4.0); LYMPHOCYTES # (AUTO) 1.1 K/uL (2.5-16.5); LYMPHOCYTES % (AUTO) 15.2 % (20.5-51.1); MEAN CORPUSCULAR HEMOGLOBIN 35 pg (27-31); MEAN CORPUSCULAR HGB CONC 33 g/dL (33-37); MEAN CORPUSCULAR VOLUME 104.3 fL (80-94); MONOCYTES # (AUTO) 0.6 K/uL (0.8-1.0); MONOCYTES % (AUTO) 7.9 % (1.7-9.3); NEUTROPHILS # (AUTO) 5.2 K/uL (1.8-7.7); NEUTROPHILS % (AUTO) 72.3 % (42.2-75.2); PLATELET COUNT (AUTO) 165 K/uL (140-450); RED BLOOD CELL COUNT(AUTO) 2.01 MIL/uL (4.20-5.40); RED CELL DISTRIBUTION WIDTH 15.8 % (11.6-13.7); WHITE BLOOD COUNT (AUTO) 7.2 K/uL (4.8-10.8)
[2021-07-16 07:37] LABS: CARBON DIOXIDE 27.4 mmol/L (21-32); CREATININE 0.7 mg/dL (0.6-1.3); POTASSIUM 3.4 mmol/L (3.5-5.1)
[2021-07-16 08:00] VITALS: BP 102/69
[2021-07-16] MEDS: NIACIN 500 MG TAB PO SCH (09:29)
[2021-07-16] MEDS: FUROSEMIDE 40 MG/4 ML VIAL IVP SCH (09:30)
[2021-07-16] MEDS: POTASSIUM CHLORIDE 10 MEQ TABER PO SCH (09:30)
[2021-07-16] MEDS: PANTOPRAZOLE 40 MG TABEC PO SCH (09:30)
[2021-07-16] MEDS: GABAPENTIN 100 MG CAP PO SCH ×2 (09:31→13:00)
[2021-07-16] MEDS: LACTULOSE 20 GM/30 ML UDC PO SCH (09:31)
[2021-07-16] MEDS ORDERED: FURO40TA9 PO (09:32)
[2021-07-16] MEDS ORDERED: LACT-103 PO (09:32)
[2021-07-16] MEDS ORDERED: SPIR50TA4 PO (09:32)
[2021-07-16] MEDS ORDERED: LEVO750T51 PO (09:32)
[2021-07-16] MEDS ORDERED: GABA300C PO (09:33)
[2021-07-16 12:44] VITALS: BP 105/69
--- NOTE | 2021-07-16 14:10 | NUR ---
PT STATED SHE WAS IN PAIN AND THAT SHE COULD BARELY MOVE. SHE NEEDED TO USE COMMODE. SHE TRANSFERRED WITH STANDBY AND SHE STATED TO LEAVE HER CLOTHES ON BED. 5 MINUTES LATER I RETURN AND SHE WAS READY, COMPLETELY CHNAGED AND FULLY CLOTHES STANDING OUTSIDE THE ROOM NO SHOWING SIGNS OF PAIN AND EASILY GOT ON THE GURNEY.
--- NOTE | 2021-07-16 14:20 | NUR ---
PT PICKED UP BY TRANSPORT TO TAKE TO HER HOME/APARTMENT. IV TAKEN OUT AND INTACT. PT BREATHING IS EVEN AND UNLABORED. NO S/S OF DISTRESS. NO COMPLAIN OF PAIN AT THE MOMENT. PT IS STABLE.
== END 2021-07-16 14:20 | disposition home health service (06) | DRG 463 ==
LOC: MED 12:47 → MTU 17:09
PROVIDERS: ADMIT Family Medicine; ATTEND Family Medicine
DX: N39.0 Urinary tract infection, site not specified (principal); I50.43 Acute on chronic combined systolic (congestive) and diastolic (congestive) heart failure; E43 Unspecified severe protein-calorie malnutrition; R18.8 Other ascites; E72.20 Disorder of urea cycle metabolism, unspecified; D63.8 Anemia in other chronic diseases classified elsewhere; K74.60 Unspecified cirrhosis of liver; I10 Essential (primary) hypertension; E87.6 Hypokalemia; E78.5 Hyperlipidemia, unspecified; Z20.822 Contact with and (suspected) exposure to COVID-19; Z90.49 Acquired absence of other specified parts of digestive tract; Z79.2 Long term (current) use of antibiotics; Z79.899 Other long term (current) drug therapy; Z91.14 Patient's other noncompliance with medication regimen; Z68.30 Body mass index [BMI] 30.0-30.9, adult
CPT/HCPCS: 36415; 71045; 74018; 80048; 80053; 80305; 81001; 82140; 82150; 82948; 83036; 83690; 83735; 83880; 84100; 84436; 84439; 84443; 84479; 84484; 85025; 85610; 85730; 87081; 87086; 93005; 93925; 93970; 96374; 96375; 97110; 97116; 97163-GP; 97530; 99285; C9113; G0482; J0696; J1170; J1815; J1940; J2270; J2405; J7060; Q0092

== ENCOUNTER 2021-07-30 19:13 | Observation (INO) | payer MEDICAID, SELFPAY ==
[~2021-07-30] VITALS: Ht 180.3 cm; Wt 99.8 kg
[~2021-07-30 19:13] MED LIST changes: +GABA300C PO; +LACT-103 PO; -SULF-59 PO
[2021-07-30 19:21] VITALS: BP 111/67
--- NOTE | 2021-07-30 19:21 | NUR ---
BIBA TAKEN TO BED #5
--- NOTE | 2021-07-30 19:40 | NUR ---
Note undone in EDM - 07/30/21 at 2056 by [email or web address] PT BIBA TO ED WITH CHEST PAIN ASSOCIATED WITH ABD PAIN. PT STATES SHE CALLED AMBULANCE BY HERSELF. PT LIVES ALONE. DENIES N/V/D; SKIN IS PINK/WARM/DRY. LEGS BILATERAL EDEMATOUS; AAOX4 WITH EVEN AND UNSTEADY GAIT. PT STATES SHE CAN FALL IF SHE AMBULATES BY HERSELF; LUNGS CLEAR BL; HR EVEN; PT DENIES ANY FEVER, CP, SOB, OR COUGH AT THIS TIME; PATIENT STATES PAIN OF 9/10 AT THIS TIME; VSS; PATIENT POSITIONED FOR COMFORT; HOB ELEVATED; BEDRAILS UP X2; BED DOWN. ER MD MADE AWARE OF PT STATUS. PMH: DENIES ALLERGIES: DENIES MEDS: LASIX
--- NOTE | 2021-07-30 19:40 | NUR ---
PT BIBA TO ED WITH CHEST PAIN ASSOCIATED WITH ABD PAIN. PT STATES SHE CALLED AMBULANCE BY HERSELF. PT LIVES ALONE. DENIES N/V/D; SKIN IS PINK/WARM/DRY. LEGS BILATERAL EDEMATOUS; AAOX4 WITH EVEN AND UNSTEADY GAIT. PT STATES SHE CAN FALL IF SHE AMBULATES BY HERSELF; LUNGS CLEAR BL; HR EVEN; PT DENIES ANY FEVER, CP, SOB, OR COUGH AT THIS TIME; PATIENT STATES PAIN OF 9/10 AT THIS TIME; VSS; PATIENT POSITIONED FOR COMFORT; HOB ELEVATED; BEDRAILS UP X2; BED DOWN. ER MD MADE AWARE OF PT STATUS. PMH: CHF ALLERGIES: DENIES MEDS: LASIX
[2021-07-30] MEDS ORDERED: KETOROLAC 30 MG/ML VIAL IVP ONE (19:45)
[2021-07-30 20:44] LABS: BASOPHILS # (AUTO) 0.1 K/uL (0.00-0.22); BASOPHILS % (AUTO) 0.9 % (0.0-2.0); EOSINOPHILS # (AUTO) 0.4 K/uL (0-0.4); EOSINOPHILS % (AUTO) 4.3 % (0.0-4.0); HEMATOCRIT 22.8 % (36-48); HEMOGLOBIN 7.5 g/dL (12.0-16.0); LYMPHOCYTES # (AUTO) 1.7 K/uL (2.5-16.5); LYMPHOCYTES % (AUTO) 20.3 % (20.5-51.1); MEAN CORPUSCULAR HEMOGLOBIN 33 pg (27-31); MEAN CORPUSCULAR HGB CONC 33 g/dL (33-37); MEAN CORPUSCULAR VOLUME 100.8 fL (80-94); MONOCYTES # (AUTO) 0.9 K/uL (0.8-1.0); MONOCYTES % (AUTO) 11.1 % (1.7-9.3); NEUTROPHILS # (AUTO) 5.3 K/uL (1.8-7.7); NEUTROPHILS % (AUTO) 63.4 % (42.2-75.2); PLATELET COUNT (AUTO) 212 K/uL (140-450); RED BLOOD CELL COUNT(AUTO) 2.26 MIL/uL (4.20-5.40); RED CELL DISTRIBUTION WIDTH 15.6 % (11.6-13.7); WHITE BLOOD COUNT (AUTO) 8.3 K/uL (4.8-10.8)
[2021-07-30 20:57] LABS: ANION GAP 12.6 (8-16); CARBON DIOXIDE 23.7 mmol/L (21-32); CREATININE 0.6 mg/dL (0.6-1.3); POTASSIUM 3.3 mmol/L (3.5-5.1); TOTAL BILIRUBIN 3.2 mg/dL (0.0-1.0)
[2021-07-30] MEDS ORDERED: MORPHINE SULFATE 4 MG/ML SYR IVP ONE (21:25)
[2021-07-30] MEDS ORDERED: ONDANSETRON 4 MG/2 ML VIAL IVP ONE (21:25)
--- NOTE | 2021-07-30 21:41 | NUR ---
PT STATES KETOROLAC DID NOT WORK AND CONTINUES TO C/O 01/23. ERMD AWARE. WILL ENDORSE TO RN FOR IV COVERAGE.
[2021-07-30] MEDS ORDERED: ASPIRIN 325 MG TAB PO SCH (22:40)
--- NOTE | 2021-07-30 23:41 | NUR ---
PT STABLE AND ASLEEP. VSS. WILL CONTINUE TO MONITOR.
[2021-07-31] MEDS: MORPHINE SULFATE 4 MG/ML SYR IVP PRN ×3 (02:14→08:18)
--- NOTE | 2021-07-31 02:15 | NUR ---
PT C/O PAIN. REQUEST MORPHIE AT THIS TIME
--- NOTE | 2021-07-31 04:15 | NUR ---
PT STABLE AND ASLEEP. VSS.
--- NOTE | 2021-07-31 05:58 | NUR ---
PT TALKING TO FRIENDS ON THE CELL PHONE. PT WIDE AWAKE AND IN A GOOD MOOD. PT WILL KEEP ASKING FOR MORE MORPHINE. EXPLAINED WE COULD ONLY GIVE EVERY q3
--- NOTE | 2021-07-31 07:02 | NUR ---
pt talking on phone. sitting up in bed. all vss
--- NOTE | 2021-07-31 07:35 | NUR ---
Received report from SAMSON Diaz for transfer of care.
[2021-07-31] MEDS ORDERED: ACETAMINOPHEN 325 MG TAB PO PRN (07:40)
[2021-07-31] MEDS ORDERED: ONDANSETRON 4 MG/2 ML VIAL IVP PRN (07:40)
[2021-07-31] MEDS ORDERED: SODIUM PHOS / POTASSIUM PHOS 1 PKT PDR PO PRN (07:40)
[2021-07-31] MEDS ORDERED: DOCUSATE SODIUM 100 MG GELCAP PO PRN (07:40)
[2021-07-31] MEDS ORDERED: ZOLPIDEM 5 MG TAB PO PRN (07:40)
[2021-07-31] MEDS ORDERED: POTASSIUM CHLORIDE 10 MEQ TABER PO PRN (07:40)
[2021-07-31] MEDS ORDERED: MAG SULF 2000 MG/WATER PREMIX 50 ML IV PRN (07:40)
[2021-07-31] MEDS ORDERED: HYDROcodone/APAP 5/325 MG 1 TAB TAB PO PRN (07:40)
--- NOTE | 2021-07-31 08:15 | NUR ---
RCT at bedside to do EKG.
[2021-07-31 08:49] LABS: BASOPHILS # (AUTO) 0.1 K/uL (0.00-0.22); BASOPHILS % (AUTO) 1.1 % (0.0-2.0); EOSINOPHILS # (AUTO) 0.3 K/uL (0-0.4); EOSINOPHILS % (AUTO) 3.5 % (0.0-4.0); HEMATOCRIT 22.5 % (36-48); HEMOGLOBIN 7.2 g/dL (12.0-16.0); LYMPHOCYTES # (AUTO) 1.1 K/uL (2.5-16.5); MEAN CORPUSCULAR HEMOGLOBIN 33 pg (27-31); MEAN CORPUSCULAR HGB CONC 32 g/dL (33-37); MEAN CORPUSCULAR VOLUME 102.7 fL (80-94); MONOCYTES # (AUTO) 0.8 K/uL (0.8-1.0); MONOCYTES % (AUTO) 9.8 % (1.7-9.3); NEUTROPHILS # (AUTO) 5.8 K/uL (1.8-7.7); NEUTROPHILS % (AUTO) 71.6 % (42.2-75.2); PLATELET COUNT (AUTO) 190 K/uL (140-450); RED BLOOD CELL COUNT(AUTO) 2.19 MIL/uL (4.20-5.40); RED CELL DISTRIBUTION WIDTH 15.4 % (11.6-13.7); WHITE BLOOD COUNT (AUTO) 8.1 K/uL (4.8-10.8)
--- NOTE | 2021-07-31 09:15 | NUR ---
Patient taken via gurney for imaging
[2021-07-31 09:20] LABS: PROTHROMBIN TIME 14.8 secs (10.8-13.4)
[2021-07-31 09:29] LABS: CHOL/HDL RATIO 6.7 (1-4.5); FREE T4 (FREE THYROXINE) 1.56 ng/dL (0.76-1.46); PHOSPHORUS 3.7 mg/dL (2.5-4.9); THYROID STIMULATING HORMONE 1.73 uIU/mL (0.34-3.74)
[2021-07-31] MEDS: NACL 0.9% 1,000 ML IV SCH ×3 (09:38→23:47)
[2021-07-31] MEDS ORDERED: MORPHINE SULFATE 2 MG/ML SYR IVP PRN (11:30)
--- NOTE | 2021-07-31 12:16 | NUR ---
Report given to NICCI Bautista.
--- NOTE | 2021-07-31 12:25 | NUR ---
Chart checked and completed. The patient's care was reviewed and supervised by Quoc Dominguez, RN, RN.
--- NOTE | 2021-07-31 12:25 | NUR ---
Patient will be admitted to care of Dr. Hamm. Admited to Telemetry. Will go to room 104B. Belongings list completed. Report to NICCI Bautista.
--- NOTE | 2021-07-31 12:36 | NUR ---
RECEIVED PT FROM ER, C/O 02/22 ABD PAIN AND BLE PAIN. AOX4, AMBULATED TO BED - STEADY, PT STATED SHE WAS RECENTLY DIAGNOSED WITH CHF AND TAKES LASIX AT HOME. VSS WILL GIVE PRN PAIN MEDICATION AND CONTINUE TO MONITOR.
[2021-07-31 13:28] VITALS: BP 118/74
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
[2021-07-31 15:44] LABS: ANION GAP 12.5 (8-16); CARBON DIOXIDE 23.8 mmol/L (21-32); CREATININE 0.8 mg/dL (0.6-1.3); POTASSIUM 3.3 mmol/L (3.5-5.1); TOTAL BILIRUBIN 3.3 mg/dL (0.0-1.0)
--- NOTE | 2021-07-31 15:48 | NUR ---
PATIENT HAS BEEN SCREENED AND CATEGORIZED MODERATE NUTRITION RISK. PATIENT WILL BE SEEN WITHIN 3-5 DAYS OF ADMISSION. [address]
--- NOTE | 2021-07-31 15:50 | NUR ---
SPOKE TO DR STANLEY. NEW ORDER FOR NPO AND INSTRUCTED THAT PT SHOULD NOT RECEIVE MORPHINE FOR PAIN. NOTIFIED NURSE
[2021-07-31 16:00] VITALS: BP 110/62
--- NOTE | 2021-07-31 16:26 | NUR ---
TOOK URINE SAMPLE TO LAB.
[2021-07-31 17:09] LABS: BILIRUBIN,URINE 2+ (NEGATIVE); BLOOD, URINE NEGATIVE (NEGATIVE); COLOR,URINE YELLOW (YELLOW); LEUKOCYTE ESTERASE ,URINE 1+ (NEGATIVE); NITRITE, URINE NEGATIVE (NEGATIVE); UGLUCOSE NEGATIVE (NEGATIVE)
[2021-07-31 17:27] LABS: APPEARANCE,URINE HAZY (CLEAR)
--- NOTE | 2021-07-31 19:30 | NUR ---
RECIEVED PT , AAOX4 , C/O PAIN - RE EDUCATES PT WHY MORPHINE SHOULD NOT GIVEN IF PT FOR HIDA SCAN , NPO , IV SITE INTACT AND PATENT - IVF INFUSING WELL RUN 100 CC/HR AT 200CC LEVEL . CALL LIGHT WITHIN REACH . PLAN OF CARE DISCUSSED AND VERBALIZES UNDERSTANDING . WILL CONT. TO MONITOR .
[2021-07-31 20:00] VITALS: BP 114/67
[2021-07-31 20:05] LABS: BARBITURATE, URINE NEGATIVE ng/ml (NEG <=200); BENZODIAZEPINE, URINE NEGATIVE ng/mL (NEG <=200); CANNABINOID, URINE NEGATIVE ng/mL (NEG <=50); COCAINE, URINE NEGATIVE ng/mL (NEG <=300); OPIATE, URINE POSITIVE ng/mL (NEG <=2000); PHENCYCLIDINE SCREEN,URINE NEGATIVE ng/mL (NEG <=25)
[2021-07-31] MEDS: MORPHINE SULFATE 2 MG/ML SYR IVP PRN (22:27)
[2021-07-31] MEDS ORDERED: KCL 20 MEQ/WATER INJ PREMIX 200 ML IV SCH (23:05)
[2021-07-31 23:18] LABS: RBC,URINE 0-5 /HPF (0-5)
[2021-08-01] VITALS: BP 115/62
--- NOTE | 2021-08-01 | NUR ---
O2 SAT WNL , ON TELE MONITOR . CALL LIGHT WITHIN REACH VOIDED THRU URINAL .
[2021-08-01] MEDS: MORPHINE SULFATE 2 MG/ML SYR IVP PRN ×7 (01:50→20:25)
--- NOTE | 2021-08-01 02:32 | NUR ---
HOOK 2ND BAG OF K RIDER ( 20 MEQ ) AND REGUALTE ORDERED . WILL CONT. TO MONITOR .
[2021-08-01 04:00] VITALS: BP 112/70
--- NOTE | 2021-08-01 04:00 | NUR ---
MADE ROUNDS , C/O PAIN , WILL MEDICATE
--- NOTE | 2021-08-01 06:00 | NUR ---
SLEEPING , AWAKEABLE , NO COMPLAIN MADE AT THIS TIME , KEEP NPO .
[2021-08-01 07:19] LABS: BASOPHILS % (AUTO) 0.5 % (0.0-2.0); EOSINOPHILS # (AUTO) 0.2 K/uL (0-0.4); EOSINOPHILS % (AUTO) 3.6 % (0.0-4.0); HEMATOCRIT 20.6 % (36-48); LYMPHOCYTES # (AUTO) 1.1 K/uL (2.5-16.5); LYMPHOCYTES % (AUTO) 18.3 % (20.5-51.1); MEAN CORPUSCULAR HEMOGLOBIN 33 pg (27-31); MEAN CORPUSCULAR HGB CONC 33 g/dL (33-37); MEAN CORPUSCULAR VOLUME 101.1 fL (80-94); MONOCYTES # (AUTO) 0.6 K/uL (0.8-1.0); MONOCYTES % (AUTO) 9.9 % (1.7-9.3); NEUTROPHILS # (AUTO) 4.2 K/uL (1.8-7.7); NEUTROPHILS % (AUTO) 67.7 % (42.2-75.2); PLATELET COUNT (AUTO) 164 K/uL (140-450); RED BLOOD CELL COUNT(AUTO) 2.04 MIL/uL (4.20-5.40); RED CELL DISTRIBUTION WIDTH 15.5 % (11.6-13.7); WHITE BLOOD COUNT (AUTO) 6.1 K/uL (4.8-10.8)
--- NOTE | 2021-08-01 07:25 | NUR ---
ENDORSED - PT - STABLE .
--- NOTE | 2021-08-01 07:30 | NUR ---
RECEIVED BEDSIDE REPORT FROM CEMETERY LABORER NURSE, PT SLEEPING, NO DISTRESS NOTED, PT ON 4LPM O2 VIA NC, NO SOB NOTED, IV TO RIGHT HAND 22G PATENT INTACT, INFUSING WELL, INITIAL ASSESSMENT DONE, ALL SAFETY PRECAUTION MET, CALL LIGHT WITHIN REACH, WILL CONTINUE TO MONITOR.
[2021-08-01 07:34] LABS: ALBUMIN 1.7 g/dL (3.4-5.0); ANION GAP 11.1 (8-16); CARBON DIOXIDE 23.5 mmol/L (21-32); CREATININE 0.7 mg/dL (0.6-1.3); MAGNESIUM 1.5 mg/dL (1.8-2.4); POTASSIUM 3.6 mmol/L (3.5-5.1); TOTAL BILIRUBIN 3.5 mg/dL (0.0-1.0)
[2021-08-01 08:00] VITALS: BP 111/62
[2021-08-01 08:14] LABS: HEMOGLOBIN 6.7 g/dL (12.0-16.0)
[2021-08-01] MEDS ORDERED: ACETAMINOPHEN 325 MG TAB PO PRN (08:50)
--- NOTE | 2021-08-01 10:30 | NUR ---
SPOKE TO DR MCGREGOR REGARDING PT, PER DR RODRIGUEZ FOR PT TO HAVE DIET. DIET ORDERED. ALSO SPOKE TO DR HERNANDEZ REGARDING PT CURRENTLY EATING AND PT ON 100ML/HR, AND HX OF CHF, PER DR ROJO DC FLUID, WILL CONTINUE WITH ORDERS.
[2021-08-01 12:00] VITALS: BP 111/62
[2021-08-01] MEDS: LORazepam 2 MG/ML VIAL IM/IVP PRN ×2 (13:30→20:53)
--- NOTE | 2021-08-01 13:30 | NUR ---
PT C/O ANXIETY, MEDICATION PER DR ORDER ADMINISTERED, PT TOLERATED WELL, WILL CONTINUE TO MONITOR.
[2021-08-01] MEDS ORDERED: SPIRONOLACTONE 50 MG TAB PO ONE (14:08)
[2021-08-01] MEDS ORDERED: FUROSEMIDE 20 MG/2 ML VIAL IVP ONE ×2 (14:10→15:12)
[2021-08-01] MEDS ORDERED: SPIRONOLACTONE 50 MG TAB ONE (15:12)
--- NOTE | 2021-08-01 15:19 | NUR ---
SATURATION 98% ON SUPPLEMENTAL OXYGEN A 4 LPM VIA NC TITRATED FIO2 TO 3 LPM HOMERO/RN AT BEDSIDE AND AWARE PATIENT C/O NASAL DRYNESS ADDED HUMIDIFIER
[2021-08-01 16:00] VITALS: BP 107/68
[2021-08-01] MEDS: FERROUS SULFATE 325 MG TABEC PO SCH (17:08)
--- NOTE | 2021-08-01 17:08 | NUR ---
PRE MEDICATION FOR BLOOD TRANSFUSION GIVEN, PT TOLERATED WELL, WILL CONTINUE TO MONITOR.
--- NOTE | 2021-08-01 18:02 | NUR ---
BLOOD TRANSFUSION STARTED, PT TOLERATED WELL, NO DISTRESS NOTED, WILL CONTINUE TO MONITOR.
--- NOTE | 2021-08-01 19:23 | NUR ---
ENDORSED PT TO SOLE SPLITTER NURSE FOR CONTINUOUS OF CARE.
--- NOTE | 2021-08-01 19:24 | NUR ---
RECEIVED BEDSIDE REPORT FROM DAY SHIFT RN. PT IS SLEEPING IN BED COMFORTABLY. PT IS NOT IN ANY DISTRESS. BREATHING RHYTHMIC AND UNLABORED. PT IS CURRENTLY HAVING BLOOD TRANSFUSION. NO BLOOD TRANSFUSION REACTION NOTED. PT IS ON 3L NC. COMMUNICATION BOARD UPDATED. CALL LIGHT WITHIN REACH. ALL SAFETY MEASURES TAKEN. WILL CONTINUE TO MONITOR THE PT.
[2021-08-01 20:00] VITALS: BP 116/79
--- NOTE | 2021-08-01 20:50 | NUR ---
BLOOD TRANSFUSION FINISHED. NO BLOOD TRANSFUSION NOTED. PT TOLERATED IT WELL. ALL SAFETY MEASURES TAKEN. WILL CONTINUE TO MONITOR THE PT.
[2021-08-01] MEDS ORDERED: AMITRIPTYLINE 10 MG TAB PO SCH (21:00)
[2021-08-01 23:09] LABS: HEMATOCRIT 23.1 % (36-48); HEMOGLOBIN 7.7 g/dL (12.0-16.0)
--- NOTE | 2021-08-01 23:50 | NUR ---
PT IS SLEEPING IN BED COMFORTABLY. PT IS ON 3L NC SATING 98%. PT IS NOT IN ANY ACUTE DISTRESS. BREATHING RHYTHMIC AND UNLABORED. COMMUNICATION BOARD UPDATED. CALL LIGHT WITHIN REACH. ALL SAFETY MEASURES TAKEN. WILL CONTINUE TO MONITOR THE PT.
[2021-08-02] VITALS: BP 97/56
--- NOTE | 2021-08-02 01:50 | NUR ---
PT IS SLEEPING IN BED COMFORTABLY. PT IS ON 3L NC SATING 97%. PT IS NOT IN ANY ACUTE DISTRESS. BREATHING RHYTHMIC AND UNLABORED. COMMUNICATION BOARD UPDATED. CALL LIGHT WITHIN REACH. ALL SAFETY MEASURES TAKEN. WILL CONTINUE TO MONITOR THE PT.
[2021-08-02] MEDS: MORPHINE SULFATE 2 MG/ML SYR IVP PRN ×2 (03:28→07:23)
--- NOTE | 2021-08-02 03:38 | NUR ---
PT COMPLAINING OF 9/10 PAIN. PT WAS MEDICATED PER MD ORDER. COMFORT MEASURES PROVIDED. NO FURTHER COMPLAINS FROM THE PT. ALL SAFETY MEASURES TAKEN. WILL CONTINUE TO MONITOR THE PT.
[2021-08-02 04:00] VITALS: BP 114/74
[2021-08-02] MEDS: LORazepam 2 MG/ML VIAL IM/IVP PRN (05:56)
--- NOTE | 2021-08-02 07:15 | NUR ---
ENDORSED PT TO DAY SHIFT RN FOR CONTINUITY OF CARE. PT IS STABLE.
--- NOTE | 2021-08-02 07:16 | NUR ---
RECEIVED BEDSIDE REPORT FROM INDUSTRIAL FABRIC CUTTER NURSE, PT RESTING, NO DISTRESS NOTED, STATED HAVING PAIN, 7/10, WILL GIVE PAIN MEDICATION. PT ON 3LPM O2 VIA NC, NO SOB NOTED. IV TO LEFT FA 20G SL AND R HAND 22G PATENT INTACT, SL. INITIAL ASSESSMENT DONE, ALL SAFETY PRECAUTION MET, CALL LIGHT WITHIN REACH, WILL CONTINUE TO MONITOR.
[2021-08-02] MEDS: FERROUS SULFATE 325 MG TABEC PO SCH ×2 (07:23→17:42)
[2021-08-02 07:28] LABS: BASOPHILS % (AUTO) 0.4 % (0.0-2.0); EOSINOPHILS # (AUTO) 0.3 K/uL (0-0.4); EOSINOPHILS % (AUTO) 4.6 % (0.0-4.0); HEMATOCRIT 22.8 % (36-48); HEMOGLOBIN 7.6 g/dL (12.0-16.0); LYMPHOCYTES # (AUTO) 0.7 K/uL (2.5-16.5); LYMPHOCYTES % (AUTO) 12.1 % (20.5-51.1); MEAN CORPUSCULAR HEMOGLOBIN 33 pg (27-31); MEAN CORPUSCULAR HGB CONC 34 g/dL (33-37); MEAN CORPUSCULAR VOLUME 99.6 fL (80-94); MONOCYTES # (AUTO) 0.5 K/uL (0.8-1.0); MONOCYTES % (AUTO) 9.6 % (1.7-9.3); NEUTROPHILS # (AUTO) 4.2 K/uL (1.8-7.7); NEUTROPHILS % (AUTO) 73.3 % (42.2-75.2); PLATELET COUNT (AUTO) 154 K/uL (140-450); RED BLOOD CELL COUNT(AUTO) 2.29 MIL/uL (4.20-5.40); RED CELL DISTRIBUTION WIDTH 16.2 % (11.6-13.7); WHITE BLOOD COUNT (AUTO) 5.7 K/uL (4.8-10.8)
[2021-08-02 08:00] VITALS: BP 110/69
[2021-08-02 08:07] LABS: FOLIC ACID 4.3 ng/mL (>3.0)
[2021-08-02 08:18] LABS: ALBUMIN 1.8 g/dL (3.4-5.0); ANION GAP 12.3 (8-16); CARBON DIOXIDE 23.4 mmol/L (21-32); CREATININE 0.7 mg/dL (0.6-1.3); MAGNESIUM 1.5 mg/dL (1.8-2.4); POTASSIUM 3.7 mmol/L (3.5-5.1); TOTAL BILIRUBIN 3.5 mg/dL (0.0-1.0)
[2021-08-02] MEDS ORDERED: FER325 PO (08:52)
[2021-08-02] MEDS ORDERED: FUROSEMIDE 20 MG TAB PO SCH (09:00)
[2021-08-02] MEDS ORDERED: SPIRONOLACTONE 50 MG TAB PO SCH (09:00)
[2021-08-02] MEDS ORDERED: MULTIVITAMIN/MINERALS 1 TAB PO SCH (09:00)
--- NOTE | 2021-08-02 09:01 | NUR ---
DUE MEDICATIONS ADMINISTERED, PT TOLERATED WELL, NO DISTRESS NOTED, WILL CONTINUE TO MONITOR.
--- NOTE | 2021-08-02 10:56 | NUR ---
CALLED PHONE NUMBER ON FACE SHEET, PHONE IS NOT ANSWERING, PER PT SON ALREADY CHANGED PHONE NUMBER, WAS GIVEN PHONE NUMBER [phone], [phone], AND [phone]. CALLED ALL THOSE NUMBERS NONE WAS CONNECTED.
--- NOTE | 2021-08-02 11:00 | NUR ---
PT STATED REFUSED TO GO HOME, NOTIFIED CAR BARN LABORER TESSIE.
[2021-08-02] MEDS ORDERED: IBUPROFEN 400 MG TAB PO PRN (11:10)
--- NOTE | 2021-08-02 11:49 | NUR ---
08/02/2021 RD INITIAL ASSESSMENT COMPLETED PLEASE REFER TO NUTRITION ASSESSMENT UNDER CARE ACTIVITY FOR ESTIMATED NUTRITIONAL NEEDS. CONTINUE WITH CARDIAC DIET. RD TO FOLLOW-UP IN 3-5 DAYS PATIENT IS MODERATE RISK. BRYANT WILLS RD
[2021-08-02 12:00] VITALS: BP 114/64
[2021-08-02 12:05] VITALS: BP 114/64
--- NOTE | 2021-08-02 12:05 | NUR ---
PT C/O PAIN, PER DR HERNANDEZ PT COULD ONLY HAVE IBUPROFEN AT THIS MOMENT, PRN IBUPROFEN GIVEN, PT TOLERATED WELL, WILL CONTINUE TO MONITOR.
[2021-08-02] MEDS ORDERED: IBUP-1842 PO ×2 (12:33→12:35)
[2021-08-02] MEDS ORDERED: IBUP-2213 PO (12:45)
--- NOTE | 2021-08-02 12:46 | NUR ---
PT SIGNED ALL DC PAPERS, EXPLAINED TO PT MEDICATIONS, PT REQUESTED PAIN MEDICATION, NOTIFIED DR. HERNANDEZ, PER TO ORDER IBUPROFEN. MEDICATION DOCUMENTED ON JUL. ALL QUESTIONS ANSWERED. IV TAKEN OUT. AWAITING FOR TAXI.
--- NOTE | 2021-08-02 15:24 | NUR ---
CALLED [facility] AGAIN ,WAS TOLD ANOTHER 45 MIN. ALREADY CALLED 4 TIMES, WAS TOLD EACH TIME 45 MINUTES.
[2021-08-02 16:00] VITALS: BP 112/68
--- NOTE | 2021-08-02 17:42 | NUR ---
DUE MEDICATION ADMINISTERED, PT STILL WAITING FOR TRANSPORT HOME, PT RESTING, NO DISTRESS NOTED, WILL CONTINUE TO [facility].
--- NOTE | 2021-08-02 19:08 | NUR ---
PT LEFT UNIT IN STABLE CONDITION, WITH TAXI, STATED GOING TO MOM'S HOME.
== END 2021-08-02 19:10 | disposition home or self-care (01) ==
LOC: MED 19:13 → MTU 22:45
PROVIDERS: ADMIT Student in an Organized Health Care Education/Training Program; ATTEND Student in an Organized Health Care Education/Training Program
DX: R07.89 Other chest pain (principal); Z20.822 Contact with and (suspected) exposure to COVID-19; D64.9 Anemia, unspecified; I5A Non-ischemic myocardial injury (non-traumatic); K70.30 Alcoholic cirrhosis of liver without ascites; I11.0 Hypertensive heart disease with heart failure; I50.9 Heart failure, unspecified; E87.6 Hypokalemia; R74.01 Elevation of levels of liver transaminase levels; E78.5 Hyperlipidemia, unspecified; K29.80 Duodenitis without bleeding; K52.9 Noninfective gastroenteritis and colitis, unspecified; M47.816 Spondylosis without myelopathy or radiculopathy, lumbar region; E43 Unspecified severe protein-calorie malnutrition; Z87.891 Personal history of nicotine dependence; Z79.899 Other long term (current) drug therapy
CPT/HCPCS: 36415; 36430; 71045; 74018; 74176; 78445; 80053; 80061; 80305; 81001; 81025; 82150; 82607; 82728; 82746; 83036; 83540; 83690; 83735; 83880; 84100; 84439; 84443; 84484; 85018; 85025; 85045; 85610; 85730; 86886; 86900; 86901; 86920; 87081; 87086; 87426; 93005; 94760; 96361; 96365; 96366; 96375; 96376; 99285; C8929; G0378; J1885; J1940; J2060; J2270; J2405; J3475; J3480; P9016; Q0092; Q0163

== ENCOUNTER 2021-08-11 06:15 | Emergency (ER) | payer MEDICAID, SELFPAY ==
[~2021-08-11] VITALS: Ht 177.8 cm; Wt 99.8 kg
[~2021-08-11 06:15] MED LIST changes: +FER325 PO; -GABA300C PO; +IBUP-1842 PO; +IBUP-2213 PO; -LACT-103 PO; -LEVO750T51 PO
[2021-08-11 06:22] VITALS: BP 156/88
--- NOTE | 2021-08-11 06:22 | NUR ---
PT BIBA BLS. TAKEN TO BED 9
--- NOTE | 2021-08-11 06:54 | NUR ---
Dr. Russ examining patient.
[2021-08-11] MEDS ORDERED: FUROSEMIDE 40 MG/4 ML VIAL IVP ONE ×2 (07:00→08:12)
--- NOTE | 2021-08-11 07:07 | NUR ---
X-Ray at bedside.
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
--- NOTE | 2021-08-11 07:24 | NUR ---
RAD AT PT BEDSIDE.
[2021-08-11 07:27] LABS: BASOPHILS # (AUTO) 0.1 K/uL (0.00-0.22); BASOPHILS % (AUTO) 0.9 % (0.0-2.0); EOSINOPHILS % (AUTO) 0.5 % (0.0-4.0); HEMATOCRIT 26.4 % (36-48); HEMOGLOBIN 8.7 g/dL (12.0-16.0); LYMPHOCYTES % (AUTO) 16.5 % (20.5-51.1); MEAN CORPUSCULAR HEMOGLOBIN 33 pg (27-31); MEAN CORPUSCULAR HGB CONC 33 g/dL (33-37); MONOCYTES # (AUTO) 0.7 K/uL (0.8-1.0); MONOCYTES % (AUTO) 12.2 % (1.7-9.3); NEUTROPHILS # (AUTO) 4.1 K/uL (1.8-7.7); NEUTROPHILS % (AUTO) 69.9 % (42.2-75.2); PLATELET COUNT (AUTO) 156 K/uL (140-450); RED BLOOD CELL COUNT(AUTO) 2.64 MIL/uL (4.20-5.40); RED CELL DISTRIBUTION WIDTH 17.4 % (11.6-13.7); WHITE BLOOD COUNT (AUTO) 5.9 K/uL (4.8-10.8)
[2021-08-11 08:32] LABS: ANION GAP 15.6 (8-16); CARBON DIOXIDE 22.9 mmol/L (21-32); CREATININE 0.6 mg/dL (0.6-1.3); POTASSIUM 3.5 mmol/L (3.5-5.1)
--- NOTE | 2021-08-11 08:38 | NUR ---
PT IS IN BED SLEEPING. BED AT LOWEST LEVEL WITH SIDE RAILS UP.
--- NOTE | 2021-08-11 10:17 | NUR ---
PT CHANGED TO CLEAN SHEETS, TURNED AND REPOSITIONED IN BED, VSS, WILL CONTINUE TO MONITOR. PT CRYING, ANXIOUS, MADE AWARE.
--- NOTE | 2021-08-11 12:06 | NUR ---
pt waiting on bus pass. charge nurse went to get it.
--- NOTE | 2021-08-11 12:06 | NUR ---
Patient discharged with v/s stable. Written and verbal after care instructions given and explained. Patient verbalized understanding. Wheel Chair Assisted with to lobby. All questions addressed prior to discharge. Advised to follow up with PMD.
[2021-08-11 12:07] VITALS: BP 133/86
== END 2021-08-11 12:07 | disposition home or self-care (01) ==
LOC: MED 06:15
DX: R06.02 Shortness of breath (principal); R07.9 Chest pain, unspecified; I50.9 Heart failure, unspecified; Z90.49 Acquired absence of other specified parts of digestive tract; Z79.1 Long term (current) use of non-steroidal anti-inflammatories (NSAID); Z79.899 Other long term (current) drug therapy
CPT/HCPCS: 36415; 71045; 80053; 81002; 81025; 83880; 84484; 85025; 93005; 96374; 99285; J1940; Q0092

== ENCOUNTER 2022-02-02 09:14 | Inpatient (IN) | payer MEDICAID ==
[~2022-02-02] VITALS: Ht 177.8 cm; Wt 77.1 kg
[~2022-02-02 09:14] MED LIST changes: -AMIT25TA29 PO; -FER325 PO; +GABA100C PO; -IBUP-1842 PO; +LACT10SO40 PO; -SPIR50TA4 PO
[2022-02-02 09:24] VITALS: BP 98/56
--- NOTE | 2022-02-02 09:31 | NUR ---
PT W/C ASSISTED TO BED 9.
[2022-02-02] MEDS ORDERED: NACL 0.9% 500 ML IV ONE (09:55)
--- NOTE | 2022-02-02 10:15 | NUR ---
20G IV ESTABLISHED TO R FORE ARM, LABS DRAWN AND PADMINI SWAB COLLECTED AND WALKED TO LAB.
--- NOTE | 2022-02-02 10:19 | NUR ---
PATIENT STATING SHE CANNOT PROVIDE URINE AT THIS TIME. DR. DE LEON MADE AWARE
--- NOTE | 2022-02-02 10:24 | NUR ---
SENIOR NUCLEAR MEDICINE TECHNOLOGIST AT BEDSIDE
[2022-02-02 10:51] LABS: LIPASE 259 U/L (73-393)
[2022-02-02 11:02] LABS: BASOPHILS % (AUTO) 0.6 % (0.0-2.0); EOSINOPHILS # (AUTO) 0.1 K/uL (0-0.4); EOSINOPHILS % (AUTO) 2.9 % (0.0-4.0); HEMATOCRIT 20.1 % (36-48); LYMPHOCYTES # (AUTO) 1.2 K/uL (2.5-16.5); MEAN CORPUSCULAR HEMOGLOBIN 35 pg (27-31); MEAN CORPUSCULAR HGB CONC 34 g/dL (33-37); MEAN CORPUSCULAR VOLUME 104.6 fL (80-94); MONOCYTES # (AUTO) 0.4 K/uL (0.8-1.0); MONOCYTES % (AUTO) 7.6 % (1.7-9.3); NEUTROPHILS # (AUTO) 3.3 K/uL (1.8-7.7); NEUTROPHILS % (AUTO) 64.9 % (42.2-75.2); PLATELET COUNT (AUTO) 51 K/uL (140-450); RED BLOOD CELL COUNT(AUTO) 1.93 MIL/uL (4.20-5.40); RED CELL DISTRIBUTION WIDTH 21.5 % (11.6-13.7); WHITE BLOOD COUNT (AUTO) 5.1 K/uL (4.8-10.8)
[2022-02-02 11:16] LABS: HEMOGLOBIN 6.8 g/dL (12.0-16.0)
[2022-02-02 11:40] LABS: ALBUMIN 2.3 g/dL (3.4-5.0); CARBON DIOXIDE 24.8 mmol/L (21-32); CREATININE 0.9 mg/dL (0.6-1.3); TOTAL BILIRUBIN 6.1 mg/dL (0.0-1.0)
[2022-02-02 11:41] LABS: POTASSIUM 2.8 mmol/L (3.5-5.1)
[2022-02-02 11:50] LABS: PROTHROMBIN TIME 18.6 secs (10.8-13.4)
--- NOTE | 2022-02-02 11:50 | NUR ---
46/F BIBA FROM HOME WITH C/O RUQ AND RLQ PAIN X3 DAYS WITH N/V/D. PATIENT DENIES TAKING MEDICATIONS FOR SYMPTOMS, DENIES SOB, CP, FEVERS, CHILLS. DENIES RECENT DRUG OR ALCOHOL USE.
[2022-02-02] MEDS ORDERED: MAG SULF 2000 MG/WATER PREMIX 50 ML IV ONE (12:10)
[2022-02-02] MEDS ORDERED: POTASSIUM CHLORIDE 10 MEQ TABER PO ONE (12:10)
[2022-02-02] MEDS ORDERED: KCL 20 MEQ/WATER INJ PREMIX 100 ML IV ONE (12:10)
--- NOTE | 2022-02-02 12:30 | NUR ---
PATIENT STATING SHE STILL CANNOT PROVIDE URINE AT THIS TIME. DR. DE LEON MADE AWARE
[2022-02-02] MEDS ORDERED: ZOLPIDEM 5 MG TAB PO PRN (13:15)
[2022-02-02] MEDS ORDERED: guaiFENesin DM 200/20 MG-10 ML 10 ML UDC PO PRN (13:15)
[2022-02-02] MEDS ORDERED: DOCUSATE SODIUM 100 MG GELCAP PO PRN (13:15)
[2022-02-02] MEDS ORDERED: ONDANSETRON 4 MG/2 ML VIAL IM/IVP PRN (13:15)
[2022-02-02] MEDS ORDERED: ACETAMINOPHEN 325 MG TAB PO PRN (13:15)
[2022-02-02] MEDS: HYDROcodone/APAP 7.5/325 MG 1 TAB PO PRN ×3 (13:44→21:58)
--- NOTE | 2022-02-02 13:46 | NUR ---
PT C/O 01/23 GENERALIZED ABDOMINAL PAIN, MEDICATED VIA PRN MEDS ORDERED.
[2022-02-02 13:58] LABS: PROTHROMBIN TIME 18.4 secs (10.8-13.4)
[2022-02-02 14:10] LABS: CHOL/HDL RATIO 2.7 (1-4.5); FREE T4 (FREE THYROXINE) 1.16 ng/dL (0.76-1.46); MAGNESIUM 1.5 mg/dL (1.8-2.4); PHOSPHORUS 3.6 mg/dL (2.5-4.9); THYROID STIMULATING HORMONE 0.39 uIU/mL (0.34-3.74)
--- NOTE | 2022-02-02 16:00 | NUR ---
Consent signed per DR. DE LEON AND PATIENT agreeing to administration of blood. Blood has been type and crossmatched. Blood sent from blood bank. Information on unit of blood checked against patient wristband at bedside by two nurses. All information matches. Patient or responsible libertarian informed of potential complications associated with blood transfusion. Informed of possible transfusion reaction symptoms. Aware of need to notify nurse at once of itching, shortness of breath, flushing, feeling of impending doom, or other symptoms not previously present. Vital signs taken within 5 minutes prior to initiation of transfusion. RN will remain with patient for first 15 minutes of transfusion at which time vital signs will be re-assessed.
--- NOTE | 2022-02-02 16:20 | NUR ---
PATIENT PLACED ON BED NIETO, URINE SAMPLE COLLECTED AND WALKED TO LAB
[2022-02-02 16:48] LABS: BILIRUBIN,URINE 3+ (NEGATIVE); BLOOD, URINE TRACE-L (NEGATIVE); LEUKOCYTE ESTERASE ,URINE TRACE (NEGATIVE); NITRITE, URINE NEGATIVE (NEGATIVE); UGLUCOSE 1+ (NEGATIVE)
[2022-02-02 17:00] LABS: APPEARANCE,URINE HAZY (CLEAR); COLOR,URINE AMBER (YELLOW)
[2022-02-02 17:08] LABS: RBC,URINE 0-5 /HPF (0-5); WBC,URINE 0-5 /HPF (0-5)
[2022-02-02 17:09] LABS: BARBITURATE, URINE NEGATIVE ng/ml (NEG <=200); BENZODIAZEPINE, URINE NEGATIVE ng/mL (NEG <=200); CANNABINOID, URINE NEGATIVE ng/mL (NEG <=50); COCAINE, URINE NEGATIVE ng/mL (NEG <=300); OPIATE, URINE POSITIVE ng/mL (NEG <=2000); PHENCYCLIDINE SCREEN,URINE NEGATIVE ng/mL (NEG <=25)
--- NOTE | 2022-02-02 17:53 | NUR ---
PT C/O 01/23 GENERALIZED ABDOMINAL PAIN, MEDICATED VIA PRN MEDS ORDERED.
[2022-02-02] MEDS: DEXT 5% /NACL 0.9% 1,000 ML IV SCH ×2 (19:09→22:02)
--- NOTE | 2022-02-02 19:21 | NUR ---
Pt report given to JB GRAJEDA. Transfer of care at this time.
--- NOTE | 2022-02-02 20:20 | NUR ---
Patient will be admitted to care of Sima GRAJEDA. Admited to [facility]. Will go to room 122B. Belongings list completed. Bedside report given to Sima RN, Sima GRAJEDA verbalized understanding of report. Patient safely transferred to bed, skin intact, patient resting comfortably in bed, no c/o pain or s/s of discomfort.
[2022-02-02 20:25] VITALS: BP 124/73
--- NOTE | 2022-02-02 20:25 | NUR ---
RECEIVED PATIENT A NEW ADMIT FROM ER. PATIENT IS AWAKE, ALERT AND ORIENTED. DENIES PAIN AT THIS TIME. NO ACUTE RESPIRATORY DISTRESS NOTED. SKIN WARM AND DRY TO TOUCH. ORIENTED TO MST ROUTINE, UPDATED WHITEBOARD. BED IN THE LOWEST AND LOCKED POSITION FOR SAFETY, CALL LIGHT IN REACH.
[2022-02-03] VITALS: BP 126/68
--- NOTE | 2022-02-03 00:05 | NUR ---
vital signs taken and recorded. provided sandwich and milk per patient's request. denies pain at this time. call light in reach.
[2022-02-03] MEDS: HYDROcodone/APAP 7.5/325 MG 1 TAB PO PRN ×5 (02:01→22:19)
--- NOTE | 2022-02-03 02:01 | NUR ---
complaining of 9/10 abdominal pain, medicated as ordered. ivf infusing well as ordered.
[2022-02-03 05:43] LABS: BASOPHILS % (AUTO) 0.8 % (0.0-2.0); EOSINOPHILS # (AUTO) 0.1 K/uL (0-0.4); EOSINOPHILS % (AUTO) 1.8 % (0.0-4.0); HEMATOCRIT 24.8 % (36-48); HEMOGLOBIN 8.3 g/dL (12.0-16.0); LYMPHOCYTES # (AUTO) 0.7 K/uL (2.5-16.5); LYMPHOCYTES % (AUTO) 14.2 % (20.5-51.1); MEAN CORPUSCULAR HEMOGLOBIN 34 pg (27-31); MEAN CORPUSCULAR HGB CONC 33 g/dL (33-37); MEAN CORPUSCULAR VOLUME 102.7 fL (80-94); MONOCYTES # (AUTO) 0.4 K/uL (0.8-1.0); MONOCYTES % (AUTO) 9.7 % (1.7-9.3); NEUTROPHILS # (AUTO) 3.4 K/uL (1.8-7.7); NEUTROPHILS % (AUTO) 73.5 % (42.2-75.2); PLATELET COUNT (AUTO) 42 K/uL (140-450); RED BLOOD CELL COUNT(AUTO) 2.41 MIL/uL (4.20-5.40); RED CELL DISTRIBUTION WIDTH 23.5 % (11.6-13.7); WHITE BLOOD COUNT (AUTO) 4.6 K/uL (4.8-10.8)
[2022-02-03 05:51] LABS: CARBON DIOXIDE 24.9 mmol/L (21-32); CREATININE 0.8 mg/dL (0.6-1.3)
[2022-02-03 05:57] LABS: POTASSIUM 2.9 mmol/L (3.5-5.1)
--- NOTE | 2022-02-03 06:10 | NUR ---
PATIENT IS AWAKE,ALERT AND ORIENTED. PAIN MEDICATION PROVIDED FOR 9/10 ABDOMINAL PAIN. ALL NEEDS ATTENDED TO. SAFETY PREAUTIONS MAINTAINED DURING THE SHIFT, CALL LIGHT REMAINED WITHIN REACH.
[2022-02-03] MEDS: POTASSIUM CHLORIDE 10 MEQ TABER PO PRN (06:58)
--- NOTE | 2022-02-03 07:05 | NUR ---
POTASSIUM 2.9 GAVE 40 MEQ PO STANDING ORDER IN EMAR, CALLED DR. BENITES AWAITING CALL BACK.
[2022-02-03 07:08] LABS: T4 (THYROXINE) 5.9 ug/dL (4.5-12.0)
--- NOTE | 2022-02-03 07:20 | NUR ---
RECEIVED REPORT FROM SHOE CEMENTER NURSE FOR CONTINUITY OF CARE. PT IN BED WATCHING TV AT THIS TIME. RESPIRATIONS ARE EVEN AND UNLABORED ON ROOM AIR. NO SIGNS OF DISTRESS NOTED. PT IS ALERT AND ORIENTED X4, ABLE TO FOLLOW COMMANDS, ABLE TO VERBALIZE NEEDS. ABD IS NONTENDER, NONDISTENDED. PT STATES SHE HAD EPISODES OF EMESIS LAST NIGHT AND IS INQUIRING ABOUT MORE PAIN MEDICATION. INFORMED PT THAT PAIN MEDICATION IS SCHEDULED AND NOT YET DUE AT THIS TIME. PT HAS IV TO RFA 20G. PT CONTINUES TO PICK AT SKIN ON L CHEEK. CALL LIGHT WITHIN REACH. ALL SAFETY MEASURES IN PLACE. WILL CONTINUE TO MONITOR.
[2022-02-03 08:00] VITALS: BP 121/71
--- NOTE | 2022-02-03 08:00 | NUR ---
Patient's Plan of Care was discussed and reviewed with TURRET LATHE TENDER: SHAMAR. WILL CONTINUE WITH CURRENT POC
--- NOTE | 2022-02-03 08:47 | NUR ---
PATIENT HAS BEEN SCREENED AND CATEGORIZED MODERATE NUTRITION RISK. PATIENT WILL BE SEEN WITHIN 3-5 DAYS OF ADMISSION. 02/03/22-02/07/[address]
[2022-02-03] MEDS ORDERED: FUROSEMIDE 40 MG TAB PO SCH (09:00)
[2022-02-03] MEDS ORDERED: LORazepam 2 MG/ML VIAL IM/IVP PRN (09:05)
[2022-02-03] MEDS: PANTOPRAZOLE 40 MG TABEC PO SCH (09:39)
[2022-02-03] MEDS: GABAPENTIN 100 MG CAP PO SCH (09:39)
--- NOTE | 2022-02-03 09:40 | NUR ---
ADMINISTERED SCHEDULED MEDICATIONS. PT REFUSED MEDICATION LASIX, EDUCATED PT ON MEDS. PT VERBALIZED UNDERSTANDING. PT ASKING FOR PAIN MEDS. INFORMED PT THAT PAIN MEDICATION NOT DUE YET. PT STATES "I THREW UP THE LAST ONE SO I CAN GET ANOTHER ONE". EDUCATED PT ON MEDICATION TIME REGIME. WILL CONTINUE TO MONITOR.
--- NOTE | 2022-02-03 11:04 | NUR ---
PT COMPLAINING OF PAIN. RATES PAIN 8/10. MEDICATED PT. WILL CONTINUE TO MONITOR.
--- NOTE | 2022-02-03 12:04 | NUR ---
WENT TO GO RE-ASSESS PT PAIN. PT SLEEPING AT THIS TIME. RESPIRATIONS ARE EVEN AND UNLABORED. NO SIGNS OF DISTRESS NOTED. WILL CONTINUE TO MONITOR.
[2022-02-03] MEDS ORDERED: THIAMINE 200 MG/2 ML VIAL IM SCH (13:00)
[2022-02-03] MEDS ORDERED: MULTIVITAMIN-12 10 ML, FOLIC ACID 1 MG in DEXTROSE 5% 1,000 ML IV SCH (13:00)
--- NOTE | 2022-02-03 13:32 | NUR ---
PT COMPLAINING OF NAUSEA. RN NOTIFIED. ZOFRAN ADMINISTERED.
--- NOTE | 2022-02-03 14:12 | NUR ---
PT ASKING FOR PAIN MEDICATION. INFORMED PT THAT MEDICATION NOT DUE YET. WILL CONTINUE TO MONITOR.
[2022-02-03] MEDS ORDERED: MAG SULF 2000 MG/WATER PREMIX 50 ML IV SCH (15:00)
[2022-02-03 16:00] VITALS: BP 124/75
--- NOTE | 2022-02-03 17:36 | NUR ---
PT COMPLAINED OF PAIN. STATED PAIN WAS 6/10. MEDICATED. WILL CONTINUE TO MONITOR.
--- NOTE | 2022-02-03 19:17 | NUR ---
ENDORSED PT TO CASH ON DELIVERY CLERK NURSE FOR CONTINUITY OF CARE. PT IS STABLE.
--- NOTE | 2022-02-03 19:18 | NUR ---
RECD. RESTING IN BED, AWAKE, A/OX4. RESPIRATION EVEN AND UNLABORED. WITH DRESSING ON THE LEFT SIDE OF FACE VERBALIZED SHE POKED A SMALL SKIN IRRITATION. BANANA BAG INFUSING AT 100 ML/HR, RIGHT FOREARM G20. DENIES PAIN 0/10.
--- NOTE | 2022-02-03 20:58 | NUR ---
VOMITED SMALL AMOUNT OF FLUIDS WITH SOME SOLIDS. MEDICATED WITH ZOFRAN PER MD ORDER BY NICCI ADKINS.
--- NOTE | 2022-02-03 21:58 | NUR ---
NO N/V NOTES, RESTING COMFORTABLY IN BED, WATCHING TV.
[2022-02-03] MEDS: DEXT 5% /NACL 0.9% 1,000 ML IV SCH (23:00)
[2022-02-04] VITALS: BP 125/73
--- NOTE | 2022-02-04 | NUR ---
STILL AWAKE IN BED, WATCHING TV. NO COMPLAINT OF PAIN 0/10.
--- NOTE | 2022-02-04 02:44 | NUR ---
Patient's Plan of Care was discussed and reviewed with ASSIGNMENT CLERK:NAVDEEP
[2022-02-04] MEDS: HYDROcodone/APAP 7.5/325 MG 1 TAB PO PRN ×4 (02:57→19:59)
--- NOTE | 2022-02-04 03:00 | NUR ---
COMPLAINT OF IV LEAKING. CLEANSED IV SITE AND NEW COVER APPLIED. CHANGED BEDDINGS. MAKE PATIENT COMFORTABLE IN BED.
[2022-02-04 05:57] LABS: BASOPHILS % (AUTO) 0.9 % (0.0-2.0); EOSINOPHILS # (AUTO) 0.2 K/uL (0-0.4); EOSINOPHILS % (AUTO) 4.2 % (0.0-4.0); HEMATOCRIT 22.1 % (36-48); HEMOGLOBIN 7.5 g/dL (12.0-16.0); LYMPHOCYTES # (AUTO) 0.5 K/uL (2.5-16.5); LYMPHOCYTES % (AUTO) 13.9 % (20.5-51.1); MEAN CORPUSCULAR HEMOGLOBIN 35 pg (27-31); MEAN CORPUSCULAR HGB CONC 34 g/dL (33-37); MEAN CORPUSCULAR VOLUME 102.3 fL (80-94); MONOCYTES # (AUTO) 0.4 K/uL (0.8-1.0); NEUTROPHILS # (AUTO) 2.6 K/uL (1.8-7.7); PLATELET COUNT (AUTO) 37 K/uL (140-450); RED BLOOD CELL COUNT(AUTO) 2.16 MIL/uL (4.20-5.40); RED CELL DISTRIBUTION WIDTH 23.4 % (11.6-13.7); WHITE BLOOD COUNT (AUTO) 3.7 K/uL (4.8-10.8)
--- NOTE | 2022-02-04 06:00 | NUR ---
RESTING COMFORTABLY ASLEEP IN BED, RESPIRATION EVEN AND UNLABORED.
[2022-02-04 06:41] LABS: ANION GAP 11.3 (8-16); CARBON DIOXIDE 25.8 mmol/L (21-32); CREATININE 0.9 mg/dL (0.6-1.3); POTASSIUM 3.1 mmol/L (3.5-5.1)
--- NOTE | 2022-02-04 07:20 | NUR ---
CONDITION REMAIN STABLE. ENDORSED TO AM SHIFT NURSE FOR CONTINUITY OF CARE.
[2022-02-04 08:00] VITALS: BP 101/42
--- NOTE | 2022-02-04 08:25 | NUR ---
DC PLANNING LATE ENTRY- PATIENT SEEN AT 11:30AM LES MET WITH PATIENT AT BEDSIDE TO COMPLETE ASSESSMENT. PATIENT REPORTS LIVING AT HOME WITH HER SON AT THE ADDRESS LISTED ON FILE. PATIENT REPORTS SHE CURRENTLY DOES NOT HAVE A WORKING PHONE NUMBER. PATIENT IDENTIFIED [facility] ([facility]) EMERGENCY CONTACT AND MDM, HOWEVER WAS UNABLE TO PROVIDE A CURRENT PHONE NUMBER. PATIENT DENIES HAVING AD IN PLACE AND DECLINED AD OFFERED BY LES.PATIENT REPORTS MEETING WITH PCP NEEDED AND REPORTS LAST VISIT, TWO MONTHS AGO. PATIENT REPORTS MEDICATION COMPLIANCE AND DENIED BARRIERS IN ACCESSING NEEDED MEDICATIONS. PATIENT REPORTS PICKING UP MEDICATION FROM [facility] IN [place], WHEN NEEDED. PATIENT DENIES BARRIERS IN ACCESS TO FOOD AND REPORTS RECEIVING GR BENEFITS OF $221 AND MACHELLE FRESH BENEFITS OF $200, MONTHLY. PATIENT REPORTS BEING INDEPENDENT IN ALL ACTIVITIES AND DENIES USE OF DME. PATIENT DENIES SA HX AND MH HX, HOWEVER PATIENT REPORTS PREVIOUSLY MEETING WITH A THERAPIST IN THE PAST. PATIENT STOPPED MEETING WITH THERAPIST ABOUT 4 MONTHS AGO SINCE BECOMING ILL. PATIENT REPORTS RECEIVING HH THAT WAS SET UP BY [facility] DURING A PREVIOUS HOSPITALIZATION, PT UNABLE TO RECALL NAME OF AGENCY. PATIENT REPORTS DC PLAN IS TO RETURN HOME ONCE MEDICALLY STABLE.
[2022-02-04] MEDS: PANTOPRAZOLE 40 MG TABEC PO SCH ×2 (08:55→20:06)
[2022-02-04] MEDS: GABAPENTIN 100 MG CAP PO SCH (08:55)
[2022-02-04] MEDS: DEXT 5% /NACL 0.9% 1,000 ML IV SCH (13:50)
[2022-02-04 16:00] VITALS: BP 95/51
[2022-02-04 20:00] VITALS: BP 100/70
--- NOTE | 2022-02-04 20:06 | NUR ---
GET THE REPORT FROM MORNING NURSE MAURO, PATIENT SITTING ON BED, PATIENT IS ALERT ORIENTED X4, ALL FALL PRECAUTION MEASURE ARE IN PLACE, CALL LIGHT IS WITHIN THE REACH, WILL CONTINUE TO MONITOR PATIENT.
--- NOTE | 2022-02-04 20:08 | NUR ---
PATIENT IS LYING ON BED, NO ANY COMPLAIN OF PAIN OR SHORTNESS OF BREATH AT THIS TIME, VITAL SIGN IS WITHIN THE NORMAL RANGE, PATIENT IS COMPLAINING OF PAIN 6/10, GAVE NORCO PO PRN PER DOCTOR ORDER, ALL OTHER SCHEDULE MEDICATION IS GIVEN PER DOCTOR ORDER, CALL LIGHT IS WITHIN THE REACH, WILL CONTINUE TO [id number] PATIENT.
[2022-02-05] MEDS: HYDROcodone/APAP 7.5/325 MG 1 TAB PO PRN ×5 (00:13→18:23)
--- NOTE | 2022-02-05 00:16 | NUR ---
PATIENT IS LYING ON BED, PATIENT COMPLAINING OF PAIN 6/10, GAVE NORCO 7.5 MG PO PRN PER DOCTOR ORDER, VITAL SIGN IS WITHIN THE NORMAL RANGE, CALL LIGHT IS WITHIN THE REACH, WILL CONTINUE TO MONITOR PATIENT.
[2022-02-05 04:00] VITALS: BP 107/59
--- NOTE | 2022-02-05 04:15 | NUR ---
PATIENT IS LYING ON BED, NO ANY COMPLAIN OF SHORTNESS OF BREATH AT THIS TIME, VITAL SIGN IS WITHIN THE NORMAL RANGE, PATIENT IS COMPLAINING OF PAIN 6/10, GAVE NORCO PO PRN PER DOCTOR ORDER, CALL LIGHT IS WITHIN THE REACH, WILL CONTINUE TO [id number] PATIENT.
[2022-02-05 05:46] LABS: BASOPHILS # (AUTO) 0.1 K/uL (0.00-0.22); BASOPHILS % (AUTO) 1.2 % (0.0-2.0); EOSINOPHILS # (AUTO) 0.2 K/uL (0-0.4); EOSINOPHILS % (AUTO) 3.8 % (0.0-4.0); HEMATOCRIT 21.8 % (36-48); HEMOGLOBIN 7.4 g/dL (12.0-16.0); LYMPHOCYTES # (AUTO) 0.7 K/uL (2.5-16.5); LYMPHOCYTES % (AUTO) 16.9 % (20.5-51.1); MEAN CORPUSCULAR HEMOGLOBIN 35 pg (27-31); MEAN CORPUSCULAR HGB CONC 34 g/dL (33-37); MEAN CORPUSCULAR VOLUME 102.4 fL (80-94); MONOCYTES # (AUTO) 0.5 K/uL (0.8-1.0); MONOCYTES % (AUTO) 11.2 % (1.7-9.3); NEUTROPHILS # (AUTO) 2.8 K/uL (1.8-7.7); NEUTROPHILS % (AUTO) 66.9 % (42.2-75.2); PLATELET COUNT (AUTO) 40 K/uL (140-450); RED BLOOD CELL COUNT(AUTO) 2.13 MIL/uL (4.20-5.40); WHITE BLOOD COUNT (AUTO) 4.3 K/uL (4.8-10.8)
[2022-02-05 06:12] LABS: ANION GAP 9.8 (8-16); CARBON DIOXIDE 24.2 mmol/L (21-32); CREATININE 0.9 mg/dL (0.6-1.3)
--- NOTE | 2022-02-05 07:11 | NUR ---
GAVE THE REPORT TO MORNING NURSE DARIAN FOR CONTINUOS OF CARE , PATIENT IS STABLE.
--- NOTE | 2022-02-05 07:12 | NUR ---
RECEIVED PT FROM CLAMP JIG ASSEMBLER NURSE. FOR CONTINUITY OF CARE. PT AWAKE, SITTING IN BED. RESPIRATIONS EVEN AND UNLABORED ON RA. NO DISTRESS NOTED. A&O4, ABLE TO COMMUNICATE NEEDS. IV SITE ON RFA 20G, INFUSING D5 1/2 NS AT 30ML/HR. NOTED GAUZE ON LEFT CHEEK FOR SKIN BREAKDOWN. CALL LIGHT WITHIN REACH. SAFETY PRECAUTIONS IN PLACE WILL CONTINUE TO MONITOR.
[2022-02-05 08:00] VITALS: BP 116/78
[2022-02-05] MEDS: POTASSIUM CHLORIDE 10 MEQ TABER PO PRN (09:30)
[2022-02-05] MEDS: GABAPENTIN 100 MG CAP PO SCH (09:30)
[2022-02-05] MEDS: PANTOPRAZOLE 40 MG TABEC PO SCH (09:31)
--- NOTE | 2022-02-05 09:34 | NUR ---
ADMINISTERED SCHEDULED MORNING MEDS. PT TEACHING ABOUT MEDS GIVEN. PT VERBALIZED UNDERSTANDING. REMINDED PT THAT SHE IS ON NPO EXCEPT FOR MEDS. PT VERBALIZED UNDERSTANDING. NPO SIGN PLACED IN THE DOOR. DISPATCHER BUS AND TROLLEY ALSO MADE AWARE. WILL CONTINUE TO MONITOR.
--- NOTE | 2022-02-05 09:39 | NUR ---
KDUR ADMINISTERED FOR POTASSIUM 3.0. WILL CONTINUE TO MONITOR.
--- NOTE | 2022-02-05 12:15 | NUR ---
IV ABX. ADMINISTERED BY NICCI CARTAGENA. NO ADVERSE REACTION NOTED. WILL CONTINUE TO MONITOR.
--- NOTE | 2022-02-05 13:15 | NUR ---
PT ASKING IF SHE CAN EAT. PT STATED SHE HAS BEEN NOT EATING SINCE YESTERDAY. WANTS TO KNOW IF THERE WILL BE PROCEDURE THAT WILL BE DONE FOR HER. FOLLOWED-UP CONSULT WITH DR. MCGREGOR. AWAITING FOR RESPONSE.
--- NOTE | 2022-02-05 13:47 | NUR ---
DIET RESUMED TO REGULAR DIET PER DR HERNANDEZ, DR MCGREGOR MADE AWARE. PT COMPLAINED OF ABD PAIN 10/23. PRN PAIN MED ADMINISTERED. WILL CONTINUE TO MONITOR.
[2022-02-05] MEDS ORDERED: SPIRONOLACTONE 50 MG TAB PO SCH (14:30)
--- NOTE | 2022-02-05 15:03 | NUR ---
ADMINISTERED SCHEDULED MED. PT TOLERATED DIET. NO COMPLAINT OF ABDOMINAL PAIN. NO VOMITING. WILL CONTINUE TO MONITOR.
--- NOTE | 2022-02-05 18:15 | NUR ---
PT PULLED OUT IV. IV CATHETER WAS INTACT. WILL ATTEMPT TO INSERT A NEW IV LINE.
--- NOTE | 2022-02-05 18:23 | NUR ---
PT COMPLAINED OF ABD PAIN 10/23. PRN PAIN MED ADMINISTERED.
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
[2022-02-06] MEDS ORDERED: SPIRONOLACTONE 50 MG TAB PO SCH (09:00)
[2022-02-06] MEDS ORDERED: PANTOPRAZOLE 40 MG TABEC PO SCH (09:00)
[2022-02-21] MEDS ORDERED: PRED20TA5 PO (13:16)
[2022-02-21] MEDS ORDERED: PANT40EC PO (13:16)
[2022-02-21] MEDS ORDERED: PENT400T67 PO (13:16)
== END 2022-02-05 18:50 | disposition left against medical advice (07) | DRG 253 ==
LOC: MED 09:14 → MMU 13:15 → MTU 17:50
PROVIDERS: ADMIT Family Medicine; ATTEND Family Medicine
PROC: 30233N1 Transfusion of Nonautologous Red Blood Cells into Peripheral Vein, Percutaneous Approach (ICD-10-PCS; principal; 2022-02-02)
DX: K92.2 Gastrointestinal hemorrhage, unspecified (principal); G93.41 Metabolic encephalopathy; E43 Unspecified severe protein-calorie malnutrition; K76.6 Portal hypertension; D68.9 Coagulation defect, unspecified; I50.9 Heart failure, unspecified; E83.51 Hypocalcemia; K70.30 Alcoholic cirrhosis of liver without ascites; E46 Unspecified protein-calorie malnutrition; N39.0 Urinary tract infection, site not specified; E87.6 Hypokalemia; D64.9 Anemia, unspecified; E78.5 Hyperlipidemia, unspecified; F10.10 Alcohol abuse, uncomplicated; Y90.8 Blood alcohol level of 240 mg/100 ml or more; Z20.822 Contact with and (suspected) exposure to COVID-19; E83.42 Hypomagnesemia; Z68.24 Body mass index [BMI] 24.0-24.9, adult; Z79.899 Other long term (current) drug therapy; Z90.49 Acquired absence of other specified parts of digestive tract; Z71.41 Alcohol abuse counseling and surveillance of alcoholic
CPT/HCPCS: 36415; 71045; 80048; 80053; 80305; 81001; 82140; 82150; 83036; 83690; 83735; 83880; 84100; 84436; 84439; 84443; 84479; 84484; 85025; 85610; 85730; 86886; 86900; 86901; 86920; 87081; 87086; 93005; 96361; 96365; 96366; 96367; 99291; A9153; G0482; J0696; J2405; J3411; J3475; J3480; J3490; J7060; P9016; Q0092

== ENCOUNTER 2022-04-11 13:51 | Inpatient (IN) | payer MEDICAID ==
[~2022-04-11] VITALS: Ht 177.8 cm; Wt 90.7 kg
[~2022-04-11 13:51] MED LIST changes: +PENT400T67 PO; +PRED20TA5 PO
[2022-04-11 13:55] VITALS: BP 119/80
--- NOTE | 2022-04-11 14:04 | NUR ---
MAKAYLA. HANDED ON URINE CUP.
[2022-04-11 14:24] LABS: BASOPHILS % (AUTO) 0.1 % (0.0-2.0); EOSINOPHILS # (AUTO) 0.1 K/uL (0-0.4); LYMPHOCYTES # (AUTO) 0.9 K/uL (2.5-16.5); LYMPHOCYTES % (AUTO) 12.7 % (20.5-51.1); MEAN CORPUSCULAR HEMOGLOBIN 37 pg (27-31); MEAN CORPUSCULAR HGB CONC 34 g/dL (33-37); MEAN CORPUSCULAR VOLUME 109.5 fL (80-94); MONOCYTES # (AUTO) 0.6 K/uL (0.8-1.0); MONOCYTES % (AUTO) 7.8 % (1.7-9.3); NEUTROPHILS # (AUTO) 5.5 K/uL (1.8-7.7); NEUTROPHILS % (AUTO) 77.4 % (42.2-75.2); PLATELET COUNT (AUTO) 68 K/uL (140-450); RED BLOOD CELL COUNT(AUTO) 1.64 MIL/uL (4.20-5.40); RED CELL DISTRIBUTION WIDTH 23.8 % (11.6-13.7); WHITE BLOOD COUNT (AUTO) 7.1 K/uL (4.8-10.8)
[2022-04-11 14:30] LABS: HEMATOCRIT 17.9 % (36-48); HEMOGLOBIN 6.1 g/dL (12.0-16.0)
--- NOTE | 2022-04-11 14:40 | NUR ---
TO ER BED 1 FROM LOBBY
[2022-04-11 14:44] LABS: ALBUMIN 1.9 g/dL (3.4-5.0); CARBON DIOXIDE 25.6 mmol/L (21-32); CREATININE 0.8 mg/dL (0.6-1.3); POTASSIUM 3.6 mmol/L (3.5-5.1); TOTAL BILIRUBIN 9.6 mg/dL (0.0-1.0)
[2022-04-11] MEDS ORDERED: MORPHINE SULFATE 2 MG/ML SYR IVP STA (14:53)
--- NOTE | 2022-04-11 15:10 | NUR ---
PT IN ROOM ANXIOUS, C/O RIGHT KNEE PAIN. CONNECTED PT TO TELE MONITOR
[2022-04-11] MEDS ORDERED: PANTOPRAZOLE 40 MG INJ VIAL IVP ONE (17:05)
--- NOTE | 2022-04-11 17:10 | NUR ---
BLOOD TRANSFUSION CONSENT UNDERSTOOD AND SIGNED BY PT. VITAL SIGNS NOTED. STARTED FIRST UNIT OF PRBC. WILL CONTINUE TO MONITOR
[2022-04-11] MEDS ORDERED: POTASSIUM CHLORIDE 10 MEQ TABER PO PRN (17:30)
[2022-04-11] MEDS ORDERED: ZOLPIDEM 10 MG TAB PO PRN (17:30)
[2022-04-11] MEDS ORDERED: DOCUSATE SODIUM 100 MG GELCAP PO PRN (17:30)
[2022-04-11] MEDS ORDERED: OCTREOTIDE ACETATE 1.25 MG in NACL 0.9% 250 ML IV SCH (17:55)
[2022-04-11] MEDS ORDERED: PANTOPRAZOLE 40 MG INJ VIAL ONE (18:07)
[2022-04-11] MEDS ORDERED: cefTRIAXone 1,000 MG VIAL ONE (18:08)
[2022-04-11 19:31] LABS: PROTHROMBIN TIME 15.8 secs (10.8-13.4)
--- NOTE | 2022-04-11 20:00 | NUR ---
2ND BAG OF RBC PACK BEING GIVEN AT THIS TIME. MONITORING Q15H.
[2022-04-11] MEDS: MORPHINE SULFATE 2 MG/ML SYR IVP PRN (20:33)
--- NOTE | 2022-04-11 22:00 | NUR ---
BLOOD TRANSFUSION DONE. NO ADVERSE EFFECTS NOTED.
[2022-04-11 23:01] LABS: APPEARANCE,URINE HAZY (CLEAR); BILIRUBIN,URINE 3+ (NEGATIVE); BLOOD, URINE 2+ (NEGATIVE); COLOR,URINE AMBER (YELLOW); LEUKOCYTE ESTERASE ,URINE TRACE (NEGATIVE); NITRITE, URINE NEGATIVE (NEGATIVE); PH,URINE 6.5 (5.0-9.0); UGLUCOSE TRACE (NEGATIVE)
--- NOTE | 2022-04-11 23:03 | NUR ---
PT CLEANED AND REPOSITIONED. URINE SENT TO LAB.
[2022-04-11 23:05] LABS: RBC,URINE 0-5 /HPF (0-5); WBC,URINE 0-5 /HPF (0-5)
--- NOTE | 2022-04-12 06:45 | NUR ---
PATIENT OBSERVED TO HAVE BLOOD COMING OUT OF HER MOUTH. BRIGHT RED IN COLOR AND AVERAGE AMOUNT. CALLED DR. FUNES FOR ORDERS. STATED SHE'LL COME BY IN AN HOUR TO CHECK ON THE PATIENT.
[2022-04-12 07:12] LABS: EOSINOPHILS # (AUTO) 0.1 K/uL (0-0.4); EOSINOPHILS % (AUTO) 2.4 % (0.0-4.0); LYMPHOCYTES # (AUTO) 0.8 K/uL (2.5-16.5); MEAN CORPUSCULAR VOLUME 105.2 fL (80-94); MONOCYTES # (AUTO) 0.6 K/uL (0.8-1.0); NEUTROPHILS # (AUTO) 4.4 K/uL (1.8-7.7); RED BLOOD CELL COUNT(AUTO) 1.74 MIL/uL (4.20-5.40)
[2022-04-12 07:17] LABS: BASOPHILS % (AUTO) 0.2 % (0.0-2.0); LYMPHOCYTES % (AUTO) 13.5 % (20.5-51.1); MEAN CORPUSCULAR HEMOGLOBIN 36 pg (27-31); MEAN CORPUSCULAR HGB CONC 34 g/dL (33-37); MONOCYTES % (AUTO) 9.4 % (1.7-9.3); NEUTROPHILS % (AUTO) 74.5 % (42.2-75.2); PLATELET COUNT (AUTO) 54 K/uL (140-450); RED CELL DISTRIBUTION WIDTH 24.7 % (11.6-13.7); WHITE BLOOD COUNT (AUTO) 5.9 K/uL (4.8-10.8)
[2022-04-12 07:32] LABS: HEMATOCRIT 18.3 % (36-48); HEMOGLOBIN 6.2 g/dL (12.0-16.0)
[2022-04-12 07:42] LABS: ANION GAP 15.6 (8-16); CARBON DIOXIDE 22.9 mmol/L (21-32); CREATININE 0.7 mg/dL (0.6-1.3); POTASSIUM 3.5 mmol/L (3.5-5.1)
[2022-04-12] MEDS: ONDANSETRON 4 MG/2 ML VIAL IVP PRN (07:53)
[2022-04-12] MEDS: MORPHINE SULFATE 2 MG/ML SYR IVP PRN ×2 (07:53→19:57)
[2022-04-12 08:00] VITALS: BP 113/49
--- NOTE | 2022-04-12 08:35 | NUR ---
Patient will be admitted to care of MARIN LYNN. Admited to telemetry. Will go to room 104B. Belongings list completed. Report to Minal GRAJEDA.
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
--- NOTE | 2022-04-12 09:00 | NUR ---
PAGED DR. FUNES ABOUT PT'S HGB 6.2, NEW ORDERS RECEIVED TO INFUSE 1 UNIT PRBCS.
[2022-04-12] MEDS: FUROSEMIDE 40 MG TAB PO SCH (10:25)
[2022-04-12] MEDS: GABAPENTIN 100 MG CAP PO SCH (10:25)
[2022-04-12] MEDS: PANTOPRAZOLE 40 MG INJ VIAL IVP SCH (10:25)
--- NOTE | 2022-04-12 10:31 | NUR ---
PATIENT HAS BEEN SCREENED AND CATEGORIZED MODERATE NUTRITION RISK. PATIENT WILL BE SEEN WITHIN 3-5 DAYS OF ADMISSION. 04/14/[address] Addendum: 04/13/22 at [address] REFERRAL RECEIVED FOR NAUSEA OVER THREE DAYS; NOT APPLICABLE. PT REPORTED NO GI SYMPTOMS, 80% PO INTAKE TODAY. DON BURNHAM RD
--- NOTE | 2022-04-12 10:40 | NUR ---
BLOOD BANK CALLED TO NOTIFY THAT PRBCS ARE READY FRO PICKUP.
--- NOTE | 2022-04-12 10:50 | NUR ---
BEGAN BLOOD TRANSFUSION, VITAL SIGNS FOLLOWS: BP 11/51, RR 18 96% ON 3L VIA NC, HR 96, T 97.5. PT STATED SHE WAS HAVING ANXIETY AND REQUESTED ATIVAN.
[2022-04-12] MEDS: LORazepam 2 MG/ML VIAL IVP PRN (11:20)
--- NOTE | 2022-04-12 11:20 | NUR ---
MEDICATED PRN ATIVAN FOR ANXIETY. PUT PT ON PUREWICK PER HER REQUEST.
[2022-04-12 12:00] VITALS: BP 98/47
[2022-04-12] MEDS ORDERED: fentaNYL citrate 0.05 MG/ML VIAL ONE (12:35)
[2022-04-12] MEDS ORDERED: diphenhydrAMINE 50 MG/ML VIAL ONE (12:35)
[2022-04-12] MEDS ORDERED: MIDAZOLAM 2 MG/2 ML VIAL ONE (12:35)
[2022-04-12] MEDS ORDERED: fentaNYL citrate 0.05 MG/ML VIAL IVP ONE (14:00)
[2022-04-12] MEDS ORDERED: MIDAZOLAM 2 MG/2 ML VIAL IVP ONE (14:00)
--- NOTE | 2022-04-12 14:50 | NUR ---
1 UNIT PRBCS FINISHED INFUSING, PT IN STABLE CONDITION AND CURRENTLY SLEEPING.
[2022-04-12 16:00] VITALS: BP 120/45
--- NOTE | 2022-04-12 16:00 | NUR ---
PT VISUALLY ASSESSED, CURRENTLY SLEEPING. NO SIGNS OF PAIN OR DISTRESS NOTED.
--- NOTE | 2022-04-12 16:50 | NUR ---
PT STATED SHE URINATED ON THE BED. PERFORMED LINEN CHANGE AND BED BATH.
[2022-04-12] MEDS: FERROUS SULFATE 325 MG TABEC PO SCH (17:00)
--- NOTE | 2022-04-12 18:00 | NUR ---
PT VISUALLY ASSSESSED, NO SIGNS OF PAIN OR DISTRESS NOTED.
--- NOTE | 2022-04-12 19:10 | NUR ---
ENDORSED PT TO NIGHTSHIFT NURSE HORTENCIA FOR CONTINUITY OF CARE. PT IN STABLE CONDITION.
--- NOTE | 2022-04-12 19:10 | NUR ---
REPORT RECEIVED FROM DAYSHIFT RN. CARE TAKEN OVER. PATIENT IN BED SLEEPING, EASILY AROUSED BY CALLING OUT HER NAME. AWAKE, AND ALERT ONCE AWAKENED. DENIES PAIN AND ANY DISTRESS. DID NOT EAT HER DINNER. DOES NOT WANT HER DINNER. WILL CONTINUE TO MONITOR PATIENT.
[2022-04-12 20:00] VITALS: BP 115/46
--- NOTE | 2022-04-12 23:00 | NUR ---
PHONE CALL TO DR RANGEL, PT WAS GIVEN WRONG MEDICATION BY HORTENCIA RN, PER DR RANGEL, TO CALL ER DOCTOR AND LET PT BE ASSESSED.ICU TRANSFER AND GIVE 2 LITERS NS BOLUS, CENTRAL LINE PLACEMENT ALSO. AMUSEMENT MACHINE MECHANIC WENT TO ER.DR COWART WENT TO SEE PT.PT ASSESSED, PER DR COWART, PT DOES NOT NEED CENTRAL LINE AT THIS TIME,TO DO NEURO CHECK Q HOUR.PHONE CALL MADE AGAIN TO DR RANGEL, DR RANGEL SAID HOLD TRANSFER TO ICU AND DO NEURO CHECK Q 1 HOUR.AND TO CLOSELY MONITOR PT.
[2022-04-12] MEDS ORDERED: NACL 0.9% 1,000 ML IV SCH ×2 (23:55)
[2022-04-13] VITALS: BP 93/49
--- NOTE | 2022-04-13 01:54 | NUR ---
PATIENT NOTED SLEEPING BUT WILL RESPOND WHEN HER NAME IS CALLED. NURSING IS MONITORING FOR SAFETY AND ANY ADVERSE REACTIONS. SIDE RAILS UP X 3 FOR SAFETY. CALL LIGHT WITHIN REACH. NEURO-CHECK WILL CONTINUE MEDICALLY NECESSARY. PATIENT'S SECOND IV BOLUS HAS FINISHED. PATIENT ATTEMPTED TO GET OUT OF BED. PATIENT EDUCATION WAS GIVEN FOR SAFETY. NURSING WILL CONTINUE TO MONITOR FOR SAFETY AND ADVERSE EFFECT OF MEDICATION GIVEN BY PREVIOUS NURSE. [email or web address]
--- NOTE | 2022-04-13 03:40 | NUR ---
PATIENT NOTED IN BED ASLEEP. NO S/S OF PAIN. NO NOTED S/S OF ADVERSE REACTION TO MEDICATION. NO NOTED S/S OR RESPIRATORY DISTRESS. [email or web address]
[2022-04-13 04:00] VITALS: BP 110/56
--- NOTE | 2022-04-13 04:56 | NUR ---
PATIENT WAS NOTED IN BED RESTING. NO NOTED S/S OF PAIN/DISCOMFORT. SIDE4 RAILS X 4 UP FOR SAFETY. PATIENT BLOOD PRESSURE LEVELED OUT. PATIENT WAS ABLE TO HAVE A BOWEL MOVEMENT AND NO NOTED DARK BLACK STOOL. PATIENT WILL BE MONITORED FOR ADVERSE DRUG REACTIONS. [email or web address]
[2022-04-13 07:28] LABS: BASOPHILS % (AUTO) 0.3 % (0.0-2.0); MONOCYTES # (AUTO) 0.4 K/uL (0.8-1.0); NEUTROPHILS # (AUTO) 2.7 K/uL (1.8-7.7); RED BLOOD CELL COUNT(AUTO) 1.42 MIL/uL (4.20-5.40); RED CELL DISTRIBUTION WIDTH 27.4 % (11.6-13.7)
--- NOTE | 2022-04-13 07:41 | NUR ---
ENDORSED PATIENT TO RADHA RN FOR CONTINUITY OF CARE, PATIENT WAS STABLE AT CHANGE OF SHIFT. [email or web address]
[2022-04-13 07:47] LABS: EOSINOPHILS # (AUTO) 0.2 K/uL (0-0.4); EOSINOPHILS % (AUTO) 4.8 % (0.0-4.0); LYMPHOCYTES # (AUTO) 0.6 K/uL (2.5-16.5); LYMPHOCYTES % (AUTO) 15.9 % (20.5-51.1); MEAN CORPUSCULAR HEMOGLOBIN 36 pg (27-31); MEAN CORPUSCULAR HGB CONC 35 g/dL (33-37); MEAN CORPUSCULAR VOLUME 101.1 fL (80-94); MONOCYTES % (AUTO) 10.5 % (1.7-9.3); NEUTROPHILS % (AUTO) 68.5 % (42.2-75.2); PLATELET COUNT (AUTO) 36 K/uL (140-450)
[2022-04-13 08:00] VITALS: BP 105/61
[2022-04-13] MEDS: FERROUS SULFATE 325 MG TABEC PO SCH ×2 (08:08→17:02)
[2022-04-13] MEDS: FUROSEMIDE 40 MG TAB PO SCH (08:14)
[2022-04-13] MEDS: PANTOPRAZOLE 40 MG INJ VIAL IVP SCH (08:14)
[2022-04-13] MEDS: THIAMINE 100 MG TAB PO SCH (08:15)
[2022-04-13] MEDS: GABAPENTIN 100 MG CAP PO SCH (08:15)
[2022-04-13] MEDS: MULTIVIT/MIN/CA/FE/FA 1 TAB PO SCH (08:15)
--- NOTE | 2022-04-13 09:05 | NUR ---
DC PLANNING LATE ENTRY, PT SEEN 04/12 AT 10:55AM LES MET WITH PT AT BEDSIDE TO COMPLETE ASSESSMENT. PT REPORTS NO CHANGES SINCE LAST VISIT. LES MET WITH PATIENT AT BEDSIDE TO COMPLETE ASSESSMENT. PATIENT REPORTS LIVING AT HOME WITH HER SON AT THE ADDRESS LISTED ON FILE. PATIENT REPORTS SHE CURRENTLY DOES NOT HAVE A WORKING PHONE NUMBER HER CELL PHONE IS BROKEN. PATIENT IDENTIFIED TITA (SON) [phone] EMERGENCY CONTACT AND MDM. PATIENT DENIES HAVING AD IN PLACE AND DECLINED AD OFFERED BY LES.PATIENT REPORTS MEETING WITH PCP NEEDED AND REPORTS LAST VISIT, TWO MONTHS AGO. PATIENT REPORTS NONCOMPLIANCE WITH MEDICATIONS AND DENIED BARRIERS IN ACCESSING NEEDED MEDICATIONS. PATIENT REPORTS PICKING UP MEDICATION FROM [facility] IN [place], WHEN NEEDED. PATIENT DENIES BARRIERS IN ACCESS TO FOOD AND REPORTS RECEIVING GR BENEFITS OF $221 AND $200 MACHELLE FRESH BENEFITS. PATIENT REPORTS BEING INDEPENDENT IN ALL ACTIVITIES AND DENIES USE OF DME. PATIENT REPORTS ALCOHOL USE HOWEVER, REPORTS ALCOHOL IS NOT AN ISSUE. PATIENT DECLINED SUBSTANCE USE RESOURCES OFFERED BY LES. PATIENT DENIES HX. PATIENT REPORTS RECEIVING HH IN THE PAST, HOWEVER PT UNABLE TO RECALL NAME OF AGENCY. PATIENT REPORTS DC PLAN IS TO RETURN HOME ONCE MEDICALLY STABLE. Addendum: 04/13/22 at 0908 by Charmaine Webster Amended: Links added.
[2022-04-13 09:16] LABS: HEMATOCRIT 14.3 % (36-48); HEMOGLOBIN 5.1 g/dL (12.0-16.0)
[2022-04-13 09:34] LABS: ANION GAP 9.2 (8-16); CARBON DIOXIDE 26.1 mmol/L (21-32); CREATININE 0.9 mg/dL (0.6-1.3); POTASSIUM 3.3 mmol/L (3.5-5.1)
[2022-04-13 12:00] VITALS: BP 105/61
[2022-04-13 16:00] VITALS: BP 105/61
[2022-04-13 21:00] VITALS: BP 99/51
[2022-04-13 22:37] LABS: HEMATOCRIT 19.1 % (36-48); HEMOGLOBIN 6.7 g/dL (12.0-16.0)
--- NOTE | 2022-04-13 23:36 | NUR ---
NOTIFIED DR RANGEL OF THE PATIENT LATEST H/H 6.7/.1 AFTER TRANSFUSING 2 UNITS OF PRBC'S. MD AWARE AND ORDERED TO TRANSFUSE ONE MORE UNIT. PRIMARY RN ETIENNE MADE AWARE OF THE ORDER.
[2022-04-14 00:24] VITALS: BP 106/70
[2022-04-14 03:47] VITALS: BP 101/58
--- NOTE | 2022-04-14 07:25 | NUR ---
CLOSING NO CHANGE ON STATUS, NO DISTRESS NOTED, REPORT GIVEN TO NICCI PALACIO PER SBAR AT BEDSIDE. ENDORSED PRBC'S TRANSFUSION.
[2022-04-14 07:50] LABS: MEAN CORPUSCULAR HEMOGLOBIN 35 pg (27-31); MEAN CORPUSCULAR HGB CONC 35 g/dL (33-37); MEAN CORPUSCULAR VOLUME 98.9 fL (80-94); PLATELET COUNT (AUTO) 43 K/uL (140-450); RED BLOOD CELL COUNT(AUTO) 1.91 MIL/uL (4.20-5.40); WHITE BLOOD COUNT (AUTO) 5.1 K/uL (4.8-10.8)
[2022-04-14 07:56] LABS: ANION GAP 10.6 (8-16); CREATININE 1.6 mg/dL (0.6-1.3); POTASSIUM 3.6 mmol/L (3.5-5.1)
[2022-04-14 08:00] VITALS: BP 93/49
[2022-04-14 08:05] LABS: HEMOGLOBIN 6.6 g/dL (12.0-16.0)
[2022-04-14 08:06] LABS: HEMATOCRIT 18.9 % (36-48)
[2022-04-14] MEDS: GABAPENTIN 100 MG CAP PO SCH (08:20)
[2022-04-14] MEDS: FERROUS SULFATE 325 MG TABEC PO SCH ×2 (08:20→17:36)
[2022-04-14] MEDS: THIAMINE 100 MG TAB PO SCH (08:21)
[2022-04-14] MEDS: PANTOPRAZOLE 40 MG INJ VIAL IVP SCH (08:31)
[2022-04-14] MEDS: FUROSEMIDE 40 MG TAB PO SCH (09:09)
[2022-04-14] MEDS: MULTIVIT/MIN/CA/FE/FA 1 TAB PO SCH (09:09)
[2022-04-14] MEDS: MAG SULF 2000 MG/WATER PREMIX 50 ML IV PRN (09:13)
[2022-04-14 09:26] LABS: BASOPHILS % (MANUAL) 0 % (0-2); BLASTS, MANUAL % 0 % (0-0); EOSINOPHILS % (MANUAL) 4 % (0-4); LYMPHOCYTES % (MANUAL) 12 % (20-46); METAMYELOCYTES % 0 % (0-0); MONOCYTES % (MANUAL) 7 % (5-12); MYELOCYTES % 0 % (0-0); OTHER CELLS,MANUAL % 0 (0-0); PROMYELOCYTES % 0 % (0-0)
[2022-04-14 09:30] LABS: BUFFY COAT SMEAR PREP N
[2022-04-14 12:00] VITALS: BP 96/54
[2022-04-14 16:00] VITALS: BP 101/57
--- NOTE | 2022-04-14 19:50 | NUR ---
RECEIVED REPORT FROM NURSE PIA. PATIENT RESTING COMFORTABLY ON ROOM AIR. NO SOB NOTED. RESPIRATION EVEN NON LABORED. ABLE TO COMMUNICATE WITH HER NEEDS. NO COMPLAINTS OF PAIN AT THIS TIME. BLOOD TRANSFUSION ONGOING. CALL LIGHT WITHIN REACH. ALL SAFETY MEASURES ARE IN PLACE. WILL CONTINUE TO MONITOR PT.
[2022-04-14 20:00] VITALS: BP 92/42
--- NOTE | 2022-04-14 20:05 | NUR ---
ENDORSE PATIENT TO PM SHIFT NURSE WHILE PATIENT REST IN BED STABLE, PIV R.HAND BLOOD TRANSFUSION AT 100ML/HR START
[2022-04-14 23:35] LABS: BASOPHILS # (AUTO) 0.1 K/uL (0.00-0.22); BASOPHILS % (AUTO) 1.8 % (0.0-2.0); EOSINOPHILS # (AUTO) 0.2 K/uL (0-0.4); EOSINOPHILS % (AUTO) 3.1 % (0.0-4.0); LYMPHOCYTES # (AUTO) 0.9 K/uL (2.5-16.5); LYMPHOCYTES % (AUTO) 16.9 % (20.5-51.1); MEAN CORPUSCULAR HEMOGLOBIN 34 pg (27-31); MEAN CORPUSCULAR HGB CONC 35 g/dL (33-37); MEAN CORPUSCULAR VOLUME 97.9 fL (80-94); MONOCYTES # (AUTO) 0.4 K/uL (0.8-1.0); MONOCYTES % (AUTO) 7.7 % (1.7-9.3); NEUTROPHILS # (AUTO) 3.9 K/uL (1.8-7.7); NEUTROPHILS % (AUTO) 70.5 % (42.2-75.2); PLATELET COUNT (AUTO) 52 K/uL (140-450); RED BLOOD CELL COUNT(AUTO) 2.05 MIL/uL (4.20-5.40); RED CELL DISTRIBUTION WIDTH 25.4 % (11.6-13.7); WHITE BLOOD COUNT (AUTO) 5.5 K/uL (4.8-10.8)
[2022-04-14 23:53] LABS: HEMOGLOBIN 6.9 g/dL (12.0-16.0)
[2022-04-15] VITALS: BP 97/54
[2022-04-15 04:00] VITALS: BP 103/53
--- NOTE | 2022-04-15 06:15 | NUR ---
BLOOD TRANSFUSION STARTED. V/S MONITORED AND RECORDED.
[2022-04-15 07:38] LABS: BASOPHILS % (AUTO) 0.7 % (0.0-2.0); EOSINOPHILS # (AUTO) 0.2 K/uL (0-0.4); EOSINOPHILS % (AUTO) 4.2 % (0.0-4.0); LYMPHOCYTES # (AUTO) 0.7 K/uL (2.5-16.5); LYMPHOCYTES % (AUTO) 16.5 % (20.5-51.1); MEAN CORPUSCULAR HEMOGLOBIN 34 pg (27-31); MEAN CORPUSCULAR HGB CONC 34 g/dL (33-37); MEAN CORPUSCULAR VOLUME 98.9 fL (80-94); MONOCYTES # (AUTO) 0.4 K/uL (0.8-1.0); MONOCYTES % (AUTO) 9.1 % (1.7-9.3); NEUTROPHILS % (AUTO) 69.5 % (42.2-75.2); PLATELET COUNT (AUTO) 41 K/uL (140-450); RED BLOOD CELL COUNT(AUTO) 1.88 MIL/uL (4.20-5.40); RED CELL DISTRIBUTION WIDTH 25.8 % (11.6-13.7); WHITE BLOOD COUNT (AUTO) 4.4 K/uL (4.8-10.8)
--- NOTE | 2022-04-15 07:42 | NUR ---
ENDORSED PATIENT TO DAY SHIFT NURSE FOR CONTINUITY OF CARE.
[2022-04-15 08:00] VITALS: BP 108/52
[2022-04-15] MEDS: FERROUS SULFATE 325 MG TABEC PO SCH ×2 (08:00→17:31)
[2022-04-15 08:08] LABS: HEPATITIS A ANTIBODY IGM Negative (Negative); HEPATITIS B CORE AB TOTAL Negative (Negative); HEPATITIS B SURFACE ANTIBODY Non Reactive (.); HEPATITIS B SURFACE ANTIGEN Negative (Negative)
[2022-04-15 08:12] LABS: HEMATOCRIT 18.6 % (36-48); HEMOGLOBIN 6.4 g/dL (12.0-16.0)
[2022-04-15 08:25] LABS: ANION GAP 13.1 (8-16); CARBON DIOXIDE 24.3 mmol/L (21-32); CREATININE 1.3 mg/dL (0.6-1.3); POTASSIUM 3.4 mmol/L (3.5-5.1)
--- NOTE | 2022-04-15 08:31 | NUR ---
RECEIVED IN BED ASSESSMENT COMPLETED AT THIS TIME PLAN OF CARE REVIEWED BLOOD TRANSFUSION IN PROGRESS AT THIS TIME LAB CALLED WITH H&H OF 6.4/18.6 MD BELLO MADE AWARE AND PER MD REDRAW CBC ONE HOUR POST TRANSFUSION WILL CONTINUE TO MOITOR AND ASSESS
[2022-04-15] MEDS: THIAMINE 100 MG TAB PO SCH (09:00)
[2022-04-15] MEDS: MULTIVIT/MIN/CA/FE/FA 1 TAB PO SCH (09:00)
[2022-04-15] MEDS: FUROSEMIDE 40 MG TAB PO SCH (09:00)
[2022-04-15] MEDS: GABAPENTIN 100 MG CAP PO SCH (09:00)
[2022-04-15] MEDS: PANTOPRAZOLE 40 MG INJ VIAL IVP SCH (09:00)
[2022-04-15 12:00] VITALS: BP 112/73
[2022-04-15 12:25] LABS: BASOPHILS % (AUTO) 0.5 % (0.0-2.0); EOSINOPHILS # (AUTO) 0.2 K/uL (0-0.4); EOSINOPHILS % (AUTO) 3.3 % (0.0-4.0); HEMATOCRIT 20.9 % (36-48); HEMOGLOBIN 7.1 g/dL (12.0-16.0); LYMPHOCYTES # (AUTO) 0.7 K/uL (2.5-16.5); LYMPHOCYTES % (AUTO) 15.5 % (20.5-51.1); MEAN CORPUSCULAR HEMOGLOBIN 34 pg (27-31); MEAN CORPUSCULAR HGB CONC 34 g/dL (33-37); MEAN CORPUSCULAR VOLUME 99.1 fL (80-94); MONOCYTES # (AUTO) 0.4 K/uL (0.8-1.0); MONOCYTES % (AUTO) 8.7 % (1.7-9.3); NEUTROPHILS # (AUTO) 3.3 K/uL (1.8-7.7); PLATELET COUNT (AUTO) 47 K/uL (140-450); RED BLOOD CELL COUNT(AUTO) 2.11 MIL/uL (4.20-5.40); RED CELL DISTRIBUTION WIDTH 24.8 % (11.6-13.7); WHITE BLOOD COUNT (AUTO) 4.5 K/uL (4.8-10.8)
[2022-04-15] MEDS: MORPHINE SULFATE 2 MG/ML SYR IVP PRN ×3 (12:54→22:16)
--- NOTE | 2022-04-15 12:54 | NUR ---
04/15/22 RD INITIAL ASSESSMENT COMPLETED PLEASE REFER TO NUTRITION ASSESSMENT UNDER CARE ACTIVITY FOR ESTIMATED NUTRITIONAL NEEDS. 1. CONTINUE WITH REGULAR DIET TOLERATED 2. RECOMMEND ENSURE BID FOR NUTRITION SUPPORT 3. RD TO FOLLOW-UP 7 DAYS, LOW RISK ARMANDO BURNHAM RD
--- NOTE | 2022-04-15 13:03 | NUR ---
MD AWARE OF POST TRANSFUSION HEMOGLOBIN 7.1 AND NEW ORDER FOR H&H IN AM NO BLOOD TRANSFUSION ORDERED AT THIS TIME WILL CONTINUE TO MONITOR AND ASSESS
--- NOTE | 2022-04-15 13:24 | NUR ---
SPOKE WITH MD BELLO REGARDING BLOOD READY IN BLOOD BANK PER CANCEL TRANSFUSION AND RECHECK H&H IN AM CURRENT H&H 7.06/04 WITH NO ACTIVE BLEEDING NOTED
[2022-04-15 16:00] VITALS: BP 101/57
--- NOTE | 2022-04-15 19:25 | NUR ---
FOUND PATIENT ASLEEP ON ROOM AIR. SPO2 SATING AT 98%. BREATH SOUNDS CLEAR, BILATERAL CHEST RISE. NO RESPIRATORY DISTRESS NOTED. WILL CONTINUE TO MONITOR.
[2022-04-15 20:00] VITALS: BP 112/70
--- NOTE | 2022-04-15 20:07 | NUR ---
PATIENT AWAKE WELL RESTED. ABLE TO COMMUNICATE WITH HER NEEDS. NO SOB NOTED ON ROOM AIR. NO COMPLAINTS OF PAIN AT THIS TIME. ALL SAFETY MEASURES IN PLACE. CALL LIGHT WITHIN REACH. WITH EPISODES OF NON PRODUCTIVE COUGH.
--- NOTE | 2022-04-15 22:16 | NUR ---
PATIENT COMPLAINED OF MODERATE RIGHT LEG PAIN, MEDICATED.
[2022-04-16] VITALS: BP 94/58
--- NOTE | 2022-04-16 03:00 | NUR ---
PATIENT NEEDS ATTENDED AND MET
[2022-04-16] MEDS: MORPHINE SULFATE 2 MG/ML SYR IVP PRN ×4 (03:15→21:46)
[2022-04-16 04:00] VITALS: BP 107/57
[2022-04-16 07:21] LABS: BASOPHILS % (AUTO) 0.7 % (0.0-2.0); EOSINOPHILS % (AUTO) 0.8 % (0.0-4.0); HEMATOCRIT 20.5 % (36-48); HEMOGLOBIN 7.1 g/dL (12.0-16.0); LYMPHOCYTES # (AUTO) 0.3 K/uL (2.5-16.5); LYMPHOCYTES % (AUTO) 8.1 % (20.5-51.1); MEAN CORPUSCULAR HEMOGLOBIN 35 pg (27-31); MEAN CORPUSCULAR HGB CONC 35 g/dL (33-37); MEAN CORPUSCULAR VOLUME 99.6 fL (80-94); MONOCYTES # (AUTO) 0.4 K/uL (0.8-1.0); MONOCYTES % (AUTO) 10.5 % (1.7-9.3); NEUTROPHILS # (AUTO) 3.2 K/uL (1.8-7.7); NEUTROPHILS % (AUTO) 79.9 % (42.2-75.2); PLATELET COUNT (AUTO) 45 K/uL (140-450); RED BLOOD CELL COUNT(AUTO) 2.06 MIL/uL (4.20-5.40); RED CELL DISTRIBUTION WIDTH 29.1 % (11.6-13.7)
--- NOTE | 2022-04-16 07:26 | NUR ---
ENDORSED PATIENT TO MORNING SHIFT NURSE EBONY FOR CONTINUITY OF CARE.
[2022-04-16 07:47] LABS: ANION GAP 13.7 (8-16); CARBON DIOXIDE 24.2 mmol/L (21-32); CREATININE 1.1 mg/dL (0.6-1.3); POTASSIUM 3.9 mmol/L (3.5-5.1)
[2022-04-16 08:00] VITALS: BP 115/54
--- NOTE | 2022-04-16 08:15 | NUR ---
RECEIVED INBED A/OX4 ANXIOUS AT THIS TIME ASSESSMENT COMPLETED PLAN OF CARE REVIEWED PT ENDORSES SHE FEELS ANXIOUS AND NOTED TO BE AGITATED WILL MEDICATE ORDERED AND CONTINUE TO MONITOR AND ASSESS PT HAS NO ACTIVE S/S OF BLEEDING NOTED
[2022-04-16] MEDS: FUROSEMIDE 40 MG TAB PO SCH (08:30)
[2022-04-16] MEDS: MULTIVIT/MIN/CA/FE/FA 1 TAB PO SCH (08:30)
[2022-04-16] MEDS: GABAPENTIN 100 MG CAP PO SCH (08:30)
[2022-04-16] MEDS: THIAMINE 100 MG TAB PO SCH (08:30)
[2022-04-16] MEDS: FERROUS SULFATE 325 MG TABEC PO SCH ×2 (08:30→16:34)
[2022-04-16] MEDS: PANTOPRAZOLE 40 MG INJ VIAL IVP SCH (08:30)
[2022-04-16] MEDS: LORazepam 2 MG/ML VIAL IVP PRN (08:31)
--- NOTE | 2022-04-16 11:40 | NUR ---
MD BELLO CALLED AND MADE AWARE OF HEMOGLOBIN 7.1 TODAY AND PER NO NEW ORDER TO TRANSFUSE AT THIS TIME
[2022-04-16 12:00] VITALS: BP 109/58
[2022-04-16] MEDS ORDERED: VANCOMYCIN PER PHARMACY MC PRN (12:40)
[2022-04-16] MEDS: VANCOMYCIN 750 MG in DEXTROSE 5% 250 ML IV SCH (15:08)
[2022-04-16 16:00] VITALS: BP 100/65
--- NOTE | 2022-04-16 19:51 | NUR ---
RECEIVED PATIENT SLEEPING IN BED IN ROOM AIR WITH HEAD OF BED ELEVATED. BREATHING NORMAL WITH SYMMETRICAL RISE AND FALL OF THE CHEST. CALL LIGHT WITHIN REACH. SAFETY MEASURES ARE IN PLACE. BED WHEELS LOCKED.
[2022-04-16 20:00] VITALS: BP 112/50
[2022-04-16] MEDS ORDERED: cefTAZidime 2,000 MG in DEXTROSE 5% 100 ML IV SCH (21:00)
--- NOTE | 2022-04-16 21:41 | NUR ---
ADMINISTERED SCHEDULED MEDICATIONS ORDERED.
[2022-04-16] MEDS: ACETAMINOPHEN 325 MG TAB PO PRN (23:49)
[2022-04-17] VITALS: BP 122/58
[2022-04-17] MEDS: VANCOMYCIN 750 MG in DEXTROSE 5% 250 ML IV SCH (02:35)
[2022-04-17] MEDS: LORazepam 2 MG/ML VIAL IVP PRN (02:37)
--- NOTE | 2022-04-17 02:37 | NUR ---
PATIENT WAS ANXIOUS, PRN MEDICATION GIVEN.
[2022-04-17 04:00] VITALS: BP 119/65
[2022-04-17] MEDS: MORPHINE SULFATE 2 MG/ML SYR IVP PRN ×4 (05:56→21:33)
[2022-04-17 06:57] LABS: BASOPHILS % (AUTO) 0.9 % (0.0-2.0); EOSINOPHILS # (AUTO) 0.1 K/uL (0-0.4); EOSINOPHILS % (AUTO) 1.9 % (0.0-4.0); LYMPHOCYTES # (AUTO) 0.7 K/uL (2.5-16.5); MEAN CORPUSCULAR HEMOGLOBIN 35 pg (27-31); MEAN CORPUSCULAR HGB CONC 35 g/dL (33-37); MEAN CORPUSCULAR VOLUME 100.9 fL (80-94); MONOCYTES # (AUTO) 0.7 K/uL (0.8-1.0); MONOCYTES % (AUTO) 18.4 % (1.7-9.3); NEUTROPHILS # (AUTO) 2.5 K/uL (1.8-7.7); NEUTROPHILS % (AUTO) 61.8 % (42.2-75.2); PLATELET COUNT (AUTO) 45 K/uL (140-450); RED BLOOD CELL COUNT(AUTO) 1.68 MIL/uL (4.20-5.40); RED CELL DISTRIBUTION WIDTH 28.6 % (11.6-13.7)
[2022-04-17 07:14] LABS: CARBON DIOXIDE 26.7 mmol/L (21-32); POTASSIUM 3.7 mmol/L (3.5-5.1)
--- NOTE | 2022-04-17 07:36 | NUR ---
BEDSIDE REPORT GIVEN TO SAY SHIFT NURSE ZEUS FOR CONTINUITY OF CARE.
--- NOTE | 2022-04-17 07:36 | NUR ---
RECEIVED REPORT FROM NIGHTSHIFT NURSE EMMA FOR CONTINUITY OF CARE. PT IS CURRENTLY SLEEPING, A/OX2 AND BREATHING IS EVEN, REGULAR AND UNLABORED ON 2L VIA NASAL CANNULA. PT IS CONTINENT OF THE BOWEL AND BLADDER, BUT HAS EPISODES OF INCONTINENCE. PT HAS LARGE DARK BRUISING UNDER CHIN, ON RIGHT SHOULDER, AND BILATERAL LOWER EXTREMITIES. PT STATED SHE IS UNABLE TO AMBULATE AND HAS DIFFICULTY TURNING FROM PAIN ON RIGHT LEG. SKIN IS OTHERWISE INTACT.
[2022-04-17 08:00] VITALS: BP 115/93
--- NOTE | 2022-04-17 08:07 | NUR ---
CRITICAL LAB VALUE REPORTED, HGB 5.[address] NORIEGA ORDERED 2 UNITS OF PRBC TRANSFUSION.
[2022-04-17 08:08] LABS: HEMOGLOBIN 5.9 g/dL (12.0-16.0)
[2022-04-17] MEDS: THIAMINE 100 MG TAB PO SCH (08:30)
[2022-04-17] MEDS: MAG SULF 2000 MG/WATER PREMIX 50 ML IV PRN (08:30)
[2022-04-17] MEDS: FUROSEMIDE 40 MG TAB PO SCH (08:31)
[2022-04-17] MEDS: PANTOPRAZOLE 40 MG INJ VIAL IVP SCH (08:31)
[2022-04-17] MEDS: FERROUS SULFATE 325 MG TABEC PO SCH ×2 (08:31→16:43)
[2022-04-17] MEDS: MULTIVIT/MIN/CA/FE/FA 1 TAB PO SCH (08:32)
[2022-04-17] MEDS: GABAPENTIN 100 MG CAP PO SCH ×4 (08:32→16:43)
[2022-04-17] MEDS ORDERED: SPIRONOLACTONE 50 MG TAB PO SCH (09:29)
[2022-04-17] MEDS: ONDANSETRON 4 MG/2 ML VIAL IVP PRN ×2 (11:08→16:42)
[2022-04-17 12:00] VITALS: BP 115/61
--- NOTE | 2022-04-17 12:15 | NUR ---
BEGAN BLOOD TRANSFUSION FOR PRBCS UNIT 1/2. PT IN STABLE CONDITION.
[2022-04-17 15:36] LABS: ALBUMIN 1.7 g/dL (3.4-5.0); BILIRUBIN,DIRECT 4.4 mg/dL (0.0-0.3); THYROID STIMULATING HORMONE 2.16 uIU/mL (0.34-3.74); TOTAL BILIRUBIN 8.4 mg/dL (0.0-1.0)
[2022-04-17 15:58] LABS: BENZODIAZEPINE, URINE POSITIVE ng/mL (NEG <=200)
[2022-04-17 15:59] LABS: BARBITURATE, URINE NEGATIVE ng/ml (NEG <=200); OPIATE, URINE POSITIVE ng/mL (NEG <=2000)
[2022-04-17 16:00] VITALS: BP 117/56
[2022-04-17 16:00] LABS: CANNABINOID, URINE NEGATIVE ng/mL (NEG <=50); COCAINE, URINE NEGATIVE ng/mL (NEG <=300); PHENCYCLIDINE SCREEN,URINE NEGATIVE ng/mL (NEG <=25)
--- NOTE | 2022-04-17 16:45 | NUR ---
TRANSFUSION COMPLETE. VITAL SIGNS WNL. PT IN STABLE CONDITION.
--- NOTE | 2022-04-17 17:15 | NUR ---
BLOOD BANK STATED THEY DID NOT HAVE 2ND UNIT OF PRBCS READY, AND WILL NOTIFY ME WHEN READY.
--- NOTE | 2022-04-17 18:01 | NUR ---
BLOOD BANK CALLED STATING PT REQUIRED ANOTHER TYPE AND SCREEN PRIOR TO 2ND UNIT TRANSFUSION. TRACEY FROM THE LAB ALSO STATED TO PLACE A NEW ORDER FOR THE 2ND UNIT OF PRBCS. SPOKE WITH AMANDA FROM THE LAB, SHE STATED SHE WAS NOT SURE. NOTIFIED DR. NORIEGA.
--- NOTE | 2022-04-17 19:10 | NUR ---
ENDORSED PT TO NIGHTSHIFT NURSE EMMA FOR CONTINUITY OF CARE. PT IN STABLE CONDITION.
[2022-04-17 20:00] VITALS: BP 125/53
--- NOTE | 2022-04-17 20:35 | NUR ---
STARTED BLOOD TRANSFUSION OF 1 UNIT PRBC. PATIENT IS AWAKE, ALERT. NO S/S OF RESPIRATORY DISTRESS. BREATHING NORMAL UNLABORED. NO COMPLAINTS OF PAIN AT THIS TIME. CALL LIGHT WITHIN REACH. SAFETY MEASURES IN PLACE. WILL CONTINUE TO CLOSE MONITOR PATIENT.
[2022-04-17] MEDS: AMITRIPTYLINE 25 MG TAB PO SCH (21:32)
[2022-04-17] MEDS: LACTULOSE 20 GM/30 ML UDC PO SCH (21:32)
[2022-04-17] MEDS: SENNA 8.6 MG TAB PO SCH (21:33)
--- NOTE | 2022-04-17 21:38 | NUR ---
ADMINISTERED ALL SCHEDULED DUE MEDICATIONS.
[2022-04-18] VITALS: BP 117/62
--- NOTE | 2022-04-18 00:30 | NUR ---
TRANSFUSED 1 UNIT PRBC. NO ADVERSE REACTION NOTED AT THIS TIME.
--- NOTE | 2022-04-18 00:45 | NUR ---
STOOL SPECIMEN COLLECTED FOR OCCULT BLOOD.
[2022-04-18] MEDS: MORPHINE SULFATE 2 MG/ML SYR IVP PRN ×3 (02:30→18:38)
[2022-04-18 04:00] VITALS: BP 123/65
[2022-04-18 07:25] LABS: BASOPHILS % (AUTO) 0.3 % (0.0-2.0); EOSINOPHILS # (AUTO) 0.1 K/uL (0-0.4); HEMATOCRIT 21.4 % (36-48); HEMOGLOBIN 7.3 g/dL (12.0-16.0); LYMPHOCYTES # (AUTO) 0.6 K/uL (2.5-16.5); MEAN CORPUSCULAR HEMOGLOBIN 34 pg (27-31); MEAN CORPUSCULAR HGB CONC 34 g/dL (33-37); MEAN CORPUSCULAR VOLUME 99.3 fL (80-94); MONOCYTES # (AUTO) 1.1 K/uL (0.8-1.0); NEUTROPHILS # (AUTO) 3.3 K/uL (1.8-7.7); NEUTROPHILS % (AUTO) 64.2 % (42.2-75.2); PLATELET COUNT (AUTO) 52 K/uL (140-450); RED BLOOD CELL COUNT(AUTO) 2.15 MIL/uL (4.20-5.40); RED CELL DISTRIBUTION WIDTH 24.5 % (11.6-13.7); WHITE BLOOD COUNT (AUTO) 5.2 K/uL (4.8-10.8)
[2022-04-18 07:36] LABS: CARBON DIOXIDE 24.5 mmol/L (21-32); POTASSIUM 3.5 mmol/L (3.5-5.1)
--- NOTE | 2022-04-18 07:36 | NUR ---
ENDORSED PATIENT TO DAY SHIFT NURSE RADHA FOR CONTINUITY OF CARE.
[2022-04-18 08:00] VITALS: BP 119/55
[2022-04-18 08:04] LABS: LYMPHOCYTES % (AUTO) 12.4 % (20.5-51.1); MONOCYTES % (AUTO) 21.1 % (1.7-9.3)
[2022-04-18] MEDS: FERROUS SULFATE 325 MG TABEC PO SCH ×2 (08:13→17:00)
[2022-04-18] MEDS: SENNA 8.6 MG TAB PO SCH ×2 (08:14→20:56)
[2022-04-18] MEDS: MULTIVIT/MIN/CA/FE/FA 1 TAB PO SCH (08:14)
[2022-04-18] MEDS: FUROSEMIDE 40 MG TAB PO SCH (08:14)
[2022-04-18] MEDS: SPIRONOLACTONE 50 MG TAB PO SCH (08:14)
[2022-04-18] MEDS: LACTULOSE 20 GM/30 ML UDC PO SCH ×2 (08:14→21:00)
[2022-04-18] MEDS: GABAPENTIN 100 MG CAP PO SCH ×3 (08:14→17:00)
[2022-04-18] MEDS: THIAMINE 100 MG TAB PO SCH (08:15)
[2022-04-18 12:00] VITALS: BP 108/59
[2022-04-18 16:00] VITALS: BP 109/61
--- NOTE | 2022-04-18 19:30 | NUR ---
RECEIVED REPORT FROM DAY SHIFT NURSE RADHA FOR CONTINUITY OF CARE. PATIENT IS A&O X3. PATIENT IS ON NC 2L; BUT KEEPS TAKING NC OFF. PATIENT'S BREATHING IS NORMAL WITH SYMMETRICAL RISE AND FALL OF CHEST. IV IS A 20G RAC, NO FLUIDS RUNNING AT THIS TIME (SALINE LOCKED). BED IS IN LOWEST POSITION, WHEELS LOCKED, CALL LIGHT IN PLACE. WILL CONTINUE TO OBSERVE PATIENT.
[2022-04-18 20:00] VITALS: BP 125/73
[2022-04-18] MEDS: AMITRIPTYLINE 25 MG TAB PO SCH (20:55)
[2022-04-18] MEDS: ACETAMINOPHEN 325 MG TAB PO PRN (20:56)
[2022-04-18] MEDS: LORazepam 2 MG/ML VIAL IVP PRN (21:12)
--- NOTE | 2022-04-18 21:15 | NUR ---
OBTAINED PATIENT 2000 VITALS. VITALS WERE: BP 125/73, O2 95%, RR 20, HR 107, TEMP 100.2. ADMINISTERED 2100 MEDICATIONS TO PATIENT ALONG WITH TYLENOL FOR TEMPERATURE OVER 100 DEGREES; PATIENT REFUSED LACTULOSE. PATIENT ALSO REQUESTED ATIVAN FOR ANXIETY. CHECKED CHART AND VITALS, ATIVAN WAS APPROPRIATE TO GIVE. ADMINISTERED ATIVAN TO PATIENT. PATIENT TOLERATED WELL. BREATHING WAS NORMAL WITH SYMMETRICAL RISE AND FALL OF CHEST. WILL CONTINUE TO OBSERVE PATIENT.
[2022-04-19] VITALS: BP 112/55
[2022-04-19] MEDS: MORPHINE SULFATE 2 MG/ML SYR IVP PRN ×5 (00:06→20:27)
--- NOTE | 2022-04-19 00:10 | NUR ---
PATIENT CALLED AND REQUESTED MORPHINE FOR 9/10 BACK AND CHEST PAIN. VITALS WERE OBTAINED; VITALS WERE: BP 112/55, HR 105, TEMP 98.5, O2 98%, RR 20. CHECKED CHART, MORPHINE WAS APPROPRIATE TO GIVE. PATIENT TOLERATED MEDICATION WELL. BREATHING WAS NORMAL WITH SYMMETRICAL RISE AND FALL OF CHEST. WILL CONTINUE TO OBSERVE PATIENT.
--- NOTE | 2022-04-19 02:47 | NUR ---
PATIENT IS SLEEPING, LYING SEMI-FOWLERS POSITION. BREATHING IS NORMAL WITH SYMMETRICAL RISE AND FALL OF CHEST. BED IS IN LOWEST POSITION, WHEELS LOCKED, CALL LIGHT IN PLACE. WILL CONTINUE TO OBSERVE PATIENT.
[2022-04-19 04:00] VITALS: BP 107/51
--- NOTE | 2022-04-19 04:30 | NUR ---
PATIENT CALLED AND STATED SHE HAD WET THE BED. PATIENT HAD REMOVED CHUCKS DIAPER AND PUREWIK, STATING THAT IT DIDN'T WORK AND SHE DIDN'T WANT TO USE IT ANYMORE. TURNED OFF SUCTION AND THROUGHOUT PURWIK AND CHUCKS PADS. PATIENT STATED SHE NEEDED TO PEE AGAIN AND ASKED FOR BED NIETO. GAVE PATIENT BEDPAN, PATIENT WAS UNABLE TO VOID OR HAVE A BM. PATIENT HAD VOIDED EARLIER OVER BED SHEETS. BEDDING WAS CHANGED WITH THE ASSISTANCE OF NURSE FARMER. PATIENT CALLED A FEW MINUTES LATER AND REQUESTED MORPHINE FOR PAIN. OBTAINED PATIENT'S 0400 VITALS; VITALS WERE: BP 107/51, HR 100, TEMP 98.8, O2 97, RR 20. CHECKED PATIENT'S CHART, MORPHINE WAS APPROPRIATE TO ADMINISTER. ADMINISTERED MORPHINE TO PATIENT. PATIENT TOLERATED WELL. PATIENT'S BREATHING IS NORMAL WITH SYMMETRICAL RISE AND FALL OF CHEST. WILL CONTINUE TO OBSERVE PATIENT.
[2022-04-19 07:02] LABS: BASOPHILS % (AUTO) 0.4 % (0.0-2.0); EOSINOPHILS # (AUTO) 0.1 K/uL (0-0.4); EOSINOPHILS % (AUTO) 3.3 % (0.0-4.0); LYMPHOCYTES # (AUTO) 0.7 K/uL (2.5-16.5); LYMPHOCYTES % (AUTO) 16.5 % (20.5-51.1); MEAN CORPUSCULAR HEMOGLOBIN 34 pg (27-31); MEAN CORPUSCULAR HGB CONC 35 g/dL (33-37); MEAN CORPUSCULAR VOLUME 98.2 fL (80-94); MONOCYTES # (AUTO) 1.2 K/uL (0.8-1.0); MONOCYTES % (AUTO) 26.9 % (1.7-9.3); NEUTROPHILS # (AUTO) 2.4 K/uL (1.8-7.7); NEUTROPHILS % (AUTO) 52.9 % (42.2-75.2); PLATELET COUNT (AUTO) 69 K/uL (140-450); RED BLOOD CELL COUNT(AUTO) 1.97 MIL/uL (4.20-5.40); RED CELL DISTRIBUTION WIDTH 24.2 % (11.6-13.7); WHITE BLOOD COUNT (AUTO) 4.5 K/uL (4.8-10.8)
--- NOTE | 2022-04-19 07:30 | NUR ---
ENDORSED CARE OF PATIENT TO DAY SHIFT NURSE KATHRYN FOR CONTINUITY OF CARE. PATIENT IS STABLE.
--- NOTE | 2022-04-19 07:31 | NUR ---
RECEIVED BEDSIDE REPORT FROM NICCI MUHAMMAD, FOR CONTINUITY OF CARE. PT A/OX4, ABLE TO MAKE NEEDS KNOWN. 2L NC. SR/ST ON MONITOR. 22G IV TO R WRIST. MILD WEAKNESS THROUGHOUT. BRUISES NOTED TO BUE. CALL LIGHT WITHIN REACH. BED LOCKED AND IN LOWEST POSITION.
[2022-04-19 07:37] LABS: CREATININE 0.8 mg/dL (0.6-1.3)
[2022-04-19 08:00] VITALS: BP 120/62
[2022-04-19 08:07] LABS: FOLIC ACID > 20.00 ng/mL (>3.0)
[2022-04-19] MEDS: GABAPENTIN 100 MG CAP PO SCH ×3 (08:14→17:04)
[2022-04-19] MEDS: MULTIVIT/MIN/CA/FE/FA 1 TAB PO SCH (08:14)
[2022-04-19] MEDS: SPIRONOLACTONE 50 MG TAB PO SCH (08:14)
[2022-04-19] MEDS: THIAMINE 100 MG TAB PO SCH (08:15)
[2022-04-19] MEDS: FERROUS SULFATE 325 MG TABEC PO SCH ×2 (08:15→17:03)
[2022-04-19] MEDS: SENNA 8.6 MG TAB PO SCH ×3 (08:16→17:04)
[2022-04-19] MEDS: FUROSEMIDE 40 MG TAB PO SCH (08:16)
[2022-04-19] MEDS: LACTULOSE 20 GM/30 ML UDC PO SCH ×5 (08:17→20:40)
[2022-04-19 08:18] LABS: HEMOGLOBIN 6.7 g/dL (12.0-16.0)
[2022-04-19 08:19] LABS: HEMATOCRIT 19.4 % (36-48)
[2022-04-19 12:00] VITALS: BP 129/65
--- NOTE | 2022-04-19 12:30 | NUR ---
ADMINISTERED 2MG MORPHINE FOR GENERALIZED PAIN 12/23.
--- NOTE | 2022-04-19 13:20 | NUR ---
PT REPORTED DECREASED PAIN. RESTING IN BED, RESPIRATIONS EVEN AND UNLABORED.
--- NOTE | 2022-04-19 13:20 | NUR ---
INITIATED 1 UNIT PRBC ORDERED. BASELINE VITALS STABLE.
[2022-04-19] MEDS: POLYETHYLENE GLYCOL 17 GM/PKT PO SCH ×2 (13:44→17:04)
[2022-04-19 16:00] VITALS: BP 110/64
--- NOTE | 2022-04-19 16:10 | NUR ---
1 UNIT PRBC FINISHED. NO S/SX OF TRANSFUSION RXN.
[2022-04-19 18:56] LABS: BASOPHILS % (AUTO) 0.4 % (0.0-2.0); EOSINOPHILS # (AUTO) 0.1 K/uL (0-0.4); EOSINOPHILS % (AUTO) 2.6 % (0.0-4.0); HEMATOCRIT 22.8 % (36-48); HEMOGLOBIN 7.8 g/dL (12.0-16.0); LYMPHOCYTES # (AUTO) 0.6 K/uL (2.5-16.5); MEAN CORPUSCULAR HEMOGLOBIN 34 pg (27-31); MEAN CORPUSCULAR HGB CONC 34 g/dL (33-37); MEAN CORPUSCULAR VOLUME 98.4 fL (80-94); MONOCYTES # (AUTO) 1.4 K/uL (0.8-1.0); MONOCYTES % (AUTO) 27.4 % (1.7-9.3); NEUTROPHILS % (AUTO) 58.6 % (42.2-75.2); PLATELET COUNT (AUTO) 79 K/uL (140-450); RED BLOOD CELL COUNT(AUTO) 2.31 MIL/uL (4.20-5.40); RED CELL DISTRIBUTION WIDTH 23.7 % (11.6-13.7); WHITE BLOOD COUNT (AUTO) 5.1 K/uL (4.8-10.8)
--- NOTE | 2022-04-19 19:13 | NUR ---
ENDORSED BEDSIDE REPORT TO NICCI GARCIA FOR CONTINUITY OF CARE.
--- NOTE | 2022-04-19 20:00 | NUR ---
RECEIVED REPORT FROM DAY SHIFT NURSE KATHRYN FOR CONTINUITY OF CARE. PATIENT IS A&O X3. PATIENT IS ON NC 2L,O2 SAT AT 99%. PATIENT'S BREATHING IS NORMAL WITH SYMMETRICAL RISE AND FALL OF CHEST. IV IS A 22G RHAND, NO FLUIDS RUNNING AT THIS TIME (SALINE LOCKED). BED IS IN LOWEST POSITION, WHEELS LOCKED, CALL LIGHT IN PLACE. WILL CONTINUE TO OBSERVE PATIENT.
[2022-04-19] MEDS: AMITRIPTYLINE 25 MG TAB PO SCH (20:40)
[2022-04-19 22:08] VITALS: BP 129/78
[2022-04-20] MEDS: MORPHINE SULFATE 2 MG/ML SYR IVP PRN ×6 (00:45→20:48)
[2022-04-20 04:00] VITALS: BP 120/60
[2022-04-20 06:55] LABS: ANION GAP 9.1 (8-16); CREATININE 0.7 mg/dL (0.6-1.3); POTASSIUM 4.1 mmol/L (3.5-5.1)
[2022-04-20 07:12] LABS: BASOPHILS % (AUTO) 0.8 % (0.0-2.0); EOSINOPHILS # (AUTO) 0.1 K/uL (0-0.4); EOSINOPHILS % (AUTO) 2.8 % (0.0-4.0); HEMATOCRIT 23.1 % (36-48); LYMPHOCYTES % (AUTO) 20.2 % (20.5-51.1); MEAN CORPUSCULAR HEMOGLOBIN 34 pg (27-31); MEAN CORPUSCULAR HGB CONC 35 g/dL (33-37); MEAN CORPUSCULAR VOLUME 98.8 fL (80-94); MONOCYTES # (AUTO) 1.2 K/uL (0.8-1.0); MONOCYTES % (AUTO) 24.6 % (1.7-9.3); NEUTROPHILS # (AUTO) 2.4 K/uL (1.8-7.7); NEUTROPHILS % (AUTO) 51.6 % (42.2-75.2); PLATELET COUNT (AUTO) 90 K/uL (140-450); RED BLOOD CELL COUNT(AUTO) 2.34 MIL/uL (4.20-5.40); RED CELL DISTRIBUTION WIDTH 23.3 % (11.6-13.7); WHITE BLOOD COUNT (AUTO) 4.7 K/uL (4.8-10.8)
[2022-04-20] MEDS: FERROUS SULFATE 325 MG TABEC PO SCH ×2 (07:35→17:31)
--- NOTE | 2022-04-20 07:41 | NUR ---
ENDORSED TO DAY RN FOR CONTINUITY OF CARE. PT IS STABLE.
[2022-04-20 08:00] VITALS: BP 124/71
[2022-04-20] MEDS: LACTULOSE 20 GM/30 ML UDC PO SCH ×3 (08:52→13:55)
[2022-04-20] MEDS: SPIRONOLACTONE 50 MG TAB PO SCH (08:52)
[2022-04-20] MEDS: FUROSEMIDE 40 MG TAB PO SCH (08:52)
[2022-04-20] MEDS: GABAPENTIN 100 MG CAP PO SCH ×3 (08:53→17:31)
[2022-04-20] MEDS: MULTIVIT/MIN/CA/FE/FA 1 TAB PO SCH (08:53)
[2022-04-20] MEDS: POLYETHYLENE GLYCOL 17 GM/PKT PO SCH ×2 (08:53→12:06)
[2022-04-20] MEDS: THIAMINE 100 MG TAB PO SCH (08:54)
[2022-04-20] MEDS: SENNA 8.6 MG TAB PO SCH ×2 (08:54→12:06)
[2022-04-20 12:00] VITALS: BP 119/62
[2022-04-20] MEDS ORDERED: CALCIUM GLUC 1 GM/50 mL NS BAG 50 ML IV SCH (12:00)
[2022-04-20] MEDS ORDERED: diphenhydrAMINE 50 MG/ML VIAL ONE (12:45)
[2022-04-20] MEDS ORDERED: MIDAZOLAM 2 MG/2 ML VIAL ONE (12:45)
[2022-04-20] MEDS ORDERED: fentaNYL citrate 0.05 MG/ML VIAL ONE (12:45)
[2022-04-20] MEDS ORDERED: MIDAZOLAM 2 MG/2 ML VIAL IVP ONE (14:55)
[2022-04-20] MEDS ORDERED: fentaNYL citrate 0.05 MG/ML VIAL IVP ONE (14:55)
[2022-04-20 16:00] VITALS: BP 122/64
--- NOTE | 2022-04-20 19:20 | NUR ---
RECEIVED REPORT FROM DAY NURSE. PT SLEEPING IN BED, FACIAL EXPRESSIONS CALM AND RELAXED IV FLUIDS RUNNING @RW 22G TKO. NOTED PT HAS BRUISES ALL OVER HER ARMS AND LEGS.
[2022-04-20] MEDS: AMITRIPTYLINE 25 MG TAB PO SCH (20:48)
[2022-04-20 22:29] VITALS: BP 121/65
[2022-04-21] MEDS: MORPHINE SULFATE 2 MG/ML SYR IVP PRN ×6 (01:02→22:45)
[2022-04-21 04:43] VITALS: BP 108/58
[2022-04-21 07:23] LABS: ANION GAP 11.1 (8-16); CARBON DIOXIDE 26.1 mmol/L (21-32); CREATININE 0.8 mg/dL (0.6-1.3); POTASSIUM 4.2 mmol/L (3.5-5.1)
[2022-04-21 07:24] LABS: BASOPHILS % (AUTO) 0.3 % (0.0-2.0); EOSINOPHILS # (AUTO) 0.1 K/uL (0-0.4); EOSINOPHILS % (AUTO) 2.6 % (0.0-4.0); HEMATOCRIT 23.2 % (36-48); LYMPHOCYTES # (AUTO) 0.8 K/uL (2.5-16.5); LYMPHOCYTES % (AUTO) 17.6 % (20.5-51.1); MEAN CORPUSCULAR HEMOGLOBIN 34 pg (27-31); MEAN CORPUSCULAR HGB CONC 34 g/dL (33-37); MEAN CORPUSCULAR VOLUME 99.7 fL (80-94); MONOCYTES # (AUTO) 1.2 K/uL (0.8-1.0); MONOCYTES % (AUTO) 24.8 % (1.7-9.3); NEUTROPHILS # (AUTO) 2.6 K/uL (1.8-7.7); NEUTROPHILS % (AUTO) 54.7 % (42.2-75.2); PLATELET COUNT (AUTO) 103 K/uL (140-450); RED BLOOD CELL COUNT(AUTO) 2.33 MIL/uL (4.20-5.40); RED CELL DISTRIBUTION WIDTH 24.5 % (11.6-13.7); WHITE BLOOD COUNT (AUTO) 4.8 K/uL (4.8-10.8)
[2022-04-21 08:00] VITALS: BP 104/61
[2022-04-21] MEDS: FERROUS SULFATE 325 MG TABEC PO SCH ×2 (08:17→17:08)
[2022-04-21] MEDS: SPIRONOLACTONE 50 MG TAB PO SCH (08:17)
[2022-04-21] MEDS: GABAPENTIN 100 MG CAP PO SCH ×3 (08:18→17:08)
[2022-04-21] MEDS: FUROSEMIDE 40 MG TAB PO SCH (08:18)
[2022-04-21] MEDS: LACTULOSE 20 GM/30 ML UDC PO SCH (08:18)
[2022-04-21] MEDS: MULTIVIT/MIN/CA/FE/FA 1 TAB PO SCH (08:18)
[2022-04-21] MEDS: THIAMINE 100 MG TAB PO SCH (08:19)
[2022-04-21] MEDS: LEVOFLOXACIN 500 MG/D5W PREMIX 100 ML IV SCH (10:00)
[2022-04-21 12:00] VITALS: BP 111/61
--- NOTE | 2022-04-21 14:54 | NUR ---
DC PLANNING: FAXED THE HOME HEALTH REQUEST TO [facility] AND CONTRACTED HOME HEALTH. MARIE , ALEXANDRE MARTINEZ , JASMINA , GERARD , AND KAROL ARRIETA . CM TO FOLLOW Addendum: 04/22/22 at 1201 by Catarina Barraza RN DC PLANNING: RECEIVED A CALL FROM MARIE REDDY, JASMINA GERARD AND ALEXANDRE MARTINEZ STATED THEY ARE NOT CONTRACTED WITH [facility]. FAXED TO [place] [phone] AND [facility] [phone] AND [facility] [phone] CM TO FOLLOW
[2022-04-21 16:00] VITALS: BP 121/68
--- NOTE | 2022-04-21 19:30 | NUR ---
1930 PM OPENING NOTES PM SHIFT HANDOFF REPORT RECEIVED FROM Rosio GAY. POSSIBLE D/C TOMORROW PENDING DETERMINATION OF PLACEMENT. PT RECEIVED AWAKE IN BED WITH SWOLLEN RIGHT LEG FROM FALL WITH BRUISING FROM CHIN TO BEAST AREA. STATED BACK LEG AND PAIN IN CHEST ALONG LINES OF BRUISING. DENIES ANY ONE AT HOME TO ASSIST WITH CARE. STATED "I ONLY HAVE A SON AND HE IS IN [place]." NO S/S OF BLEEDING. PATIENT TEACHING CONCERNING NON-WEIGHT BEARING ON RLE AND IMPORTANCE OF PROPER BODY MECHANICS AND IMPLEMENTATION OF WHAT PHYSICAL THERAPY HAS TAUGHT PT IN ORDER TO PROMOTE HEALING AND SAFETY WITH FUTURE AMBULATION. NURSE REPORTED PATIENT MOVING TO FAST AND IMPROPERLY TODAY WITH POOR TRANSFER SKILLS AFTER WORKING WITH PT. INSTRUCTED TO SLOW DOWN AND DO THINGS THE PROPER WAY SHOWN BY P.T THERAPIST. NOTED VOIDING FREQUENTLY APPROX EVERY 1.5 HOURS WITH HEAVILY CONCENTRATED ORANGE COLORED DARK ELIF URINE. CIRC AND SENSATION INTACT TO EXTREMITIES X4. PT TEACHING CONCERNING CDB EXERCISES TO PROMOTE ADEQUATE AIR EXCHANGE TO FURTHER HEALING. BED IN LOWEST POSITION WITH WHEELS LOCKED. CALL LIGHT WITHIN EASY REACH. TELE SR AND ST. PT REQUESTING MORPHINE 2MG Q4 HOURS FOR PAIN.
[2022-04-21 20:00] VITALS: BP 108/58
[2022-04-21] MEDS: AMITRIPTYLINE 25 MG TAB PO SCH (21:10)
[2022-04-22] VITALS: BP 129/57
[2022-04-22] MEDS: MORPHINE SULFATE 2 MG/ML SYR IVP PRN (02:56)
[2022-04-22] MEDS: ACETAMINOPHEN 325 MG TAB PO PRN (04:57)
[2022-04-22] MEDS: FERROUS SULFATE 325 MG TABEC PO SCH (08:32)
[2022-04-22] MEDS: SPIRONOLACTONE 50 MG TAB PO SCH (08:33)
[2022-04-22] MEDS: FUROSEMIDE 40 MG TAB PO SCH (08:34)
[2022-04-22] MEDS: LACTULOSE 20 GM/30 ML UDC PO SCH (08:34)
[2022-04-22] MEDS: GABAPENTIN 100 MG CAP PO SCH (08:35)
[2022-04-22] MEDS: THIAMINE 100 MG TAB PO SCH (08:36)
[2022-04-22] MEDS: LEVOFLOXACIN 500 MG/D5W PREMIX 100 ML IV SCH (08:50)
[2022-04-22] MEDS: MULTIVIT/MIN/CA/FE/FA 1 TAB PO SCH (08:50)
[2022-04-22] MEDS ORDERED: LACT10SO11 PO (09:28)
[2022-04-22] MEDS ORDERED: AMIT25TA29 PO (09:28)
[2022-04-22] MEDS ORDERED: THIA-34 PO (09:28)
[2022-04-22] MEDS ORDERED: SPIR50TA PO (09:28)
[2022-04-22] MEDS ORDERED: GABA-636 PO (09:28)
[2022-04-22 11:08] VITALS: BP 126/74
--- NOTE | 2022-04-22 11:32 | NUR ---
DISCHARGE PLANNING: LES CALL TO SCHEDULED TRANSPORTATION FOR PATIENT BACK HOME IN A GURNEY FOR TODAY WITH [employer] AT [employer] [facility]. SPOKE TO KLEVER TO SCHEDULE PATIENTS TRANSPORTATION BACK HOME IN A GURNEY DUE TO PATIENT UNABLE TO WALK. PER KLEVER AFTER THESE SEO MANAGER PROVIDED INFORMATION WAS ABLE TO GIVE A REFERENCE NUMBER # [id number]. PER KLEVER HE HAS SCHEDULE TRANSPORT AND WILL BE PICKING UP PATIENT WITH IN 45 MINS TO 3 HOURS. TRANSPORTATION ETA WILL BE GIVEN LATER TO UNIT WHEN HE CALL BACK WITH ETA INF. TO UNIT NUMBER. LES PROVIDED UNIT PHONE NUMBER TO KLEVER FROM [employer] AND ENDORSE INFORMATION TO BERNARD[employer]SE SUPER VISOR AND JUAREZ AT [facility] UNIT. DENISA/LES WILL FOLLOW UP NEEDED.
--- NOTE | 2022-04-22 11:45 | NUR ---
DISCHARGE INSTRUCTIONS GIVEN TO PATIENT. SIGNED. ALLOWED TIME FOR QUESTIONS. COPY OF D/C ORDERS GIVEN.
--- NOTE | 2022-04-22 12:15 | NUR ---
TRANSPORT ARRIVED. PT D/C HOME. WITH FOLLOWUP PLANS TO SEE PRIMARY MD.
== END 2022-04-22 12:00 | disposition home or self-care (01) | DRG 720 ==
LOC: MED 13:51 → MTU 17:21
PROVIDERS: ADMIT Family Medicine; ATTEND Family Medicine
PROC: 30233N1 Transfusion of Nonautologous Red Blood Cells into Peripheral Vein, Percutaneous Approach (ICD-10-PCS; 2022-04-13)
PROC: 0DBL8ZZ Excision of Transverse Colon, Via Natural or Artificial Opening Endoscopic (ICD-10-PCS; principal; 2022-04-20 13:00)
DX: A41.9 Sepsis, unspecified organism (principal); E43 Unspecified severe protein-calorie malnutrition; D68.9 Coagulation defect, unspecified; D69.6 Thrombocytopenia, unspecified; K29.21 Alcoholic gastritis with bleeding; D63.8 Anemia in other chronic diseases classified elsewhere; E87.0 Hyperosmolality and hypernatremia; E83.51 Hypocalcemia; K64.8 Other hemorrhoids; K70.30 Alcoholic cirrhosis of liver without ascites; K76.6 Portal hypertension; I50.9 Heart failure, unspecified; E83.42 Hypomagnesemia; N39.0 Urinary tract infection, site not specified; E80.6 Other disorders of bilirubin metabolism; R74.01 Elevation of levels of liver transaminase levels; F10.129 Alcohol abuse with intoxication, unspecified; Y90.9 Presence of alcohol in blood, level not specified; K44.9 Diaphragmatic hernia without obstruction or gangrene; I86.8 Varicose veins of other specified sites; S20.211A Contusion of right front wall of thorax, initial encounter; W18.39XA Other fall on same level, initial encounter; G89.4 Chronic pain syndrome; K31.89 Other diseases of stomach and duodenum; Z20.822 Contact with and (suspected) exposure to COVID-19; I11.0 Hypertensive heart disease with heart failure; E66.9 Obesity, unspecified; Z91.199 Patient's noncompliance with other medical treatment and regimen due to unspecified reason; Z79.1 Long term (current) use of non-steroidal anti-inflammatories (NSAID); Z79.899 Other long term (current) drug therapy; Y93.89 Activity, other specified; Y92.89 Other specified places as the place of occurrence of the external cause; Y99.8 Other external cause status; Z68.28 Body mass index [BMI] 28.0-28.9, adult
CPT/HCPCS: 36415; 36430; 73564; 73700; 76705; 80048; 80053; 80076; 80202; 80305; 81001; 82272; 82607; 82746; 83010; 83540; 83735; 84100; 84443; 85018; 85025; 85045; 85610; 85730; 86704; 86706; 86708; 86709; 86803; 86886; 86900; 86901; 86920; 87040; 87086; 87186; 87340; 88305; 93971; 96365; 96375; 97112; 97116; 97163-GP; 97530; 99291; C9113; J0610; J0690; J0696; J0713; J1200; J1956; J2060; J2250; J2270; J2405; J3010; J3370; J3475; J7030; J7060; P9016; Q0092; Q9967

== ENCOUNTER 2022-06-08 12:23 | Inpatient (IN) | payer MEDICAID ==
[~2022-06-08] VITALS: Ht 162.6 cm; Wt 74.4 kg
[~2022-06-08 12:23] MED LIST changes: +AMIT25TA29 PO; +GABA-636 PO; +LACT10SO11 PO; +SPIR50TA PO; +THIA-34 PO
[2022-06-08 12:26] VITALS: BP 140/72
--- NOTE | 2022-06-08 13:17 | NUR ---
PT TAKEN TO BED 8 VIA WHEEL CHAIR
[2022-06-08 14:11] LABS: BASOPHILS % (AUTO) 0.2 % (0.0-2.0); EOSINOPHILS # (AUTO) 0.1 K/uL (0-0.4); EOSINOPHILS % (AUTO) 1.8 % (0.0-4.0); HEMATOCRIT 22.4 % (36-48); HEMOGLOBIN 7.6 g/dL (12.0-16.0); LYMPHOCYTES % (AUTO) 16.3 % (20.5-51.1); MEAN CORPUSCULAR HEMOGLOBIN 39 pg (27-31); MEAN CORPUSCULAR HGB CONC 34 g/dL (33-37); MONOCYTES # (AUTO) 0.7 K/uL (0.8-1.0); NEUTROPHILS # (AUTO) 4.5 K/uL (1.8-7.7); NEUTROPHILS % (AUTO) 70.7 % (42.2-75.2); PLATELET COUNT (AUTO) 50 K/uL (140-450); RED BLOOD CELL COUNT(AUTO) 1.97 MIL/uL (4.20-5.40); RED CELL DISTRIBUTION WIDTH 16.5 % (11.6-13.7); WHITE BLOOD COUNT (AUTO) 6.4 K/uL (4.8-10.8)
--- NOTE | 2022-06-08 14:20 | NUR ---
46YO FEMALE PT BIBA C/O VAGINAL BLEEDING X3DAYS. STATES USING 6-7 PADS DAILY AND NOTES CLOTS .REPORTS GENERAL WEAKNESS , BODY PAIN W/ SOB WHEN WALKING . DENIES N/V/D, CHEST PAIN , FEVER OR CHILLS . WHEELCHAIR ASSISTED TO ROOM. 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 BED AT LOWEST POSITION, BED RAILS UPX2. HX: CHF, CIRROHSIS, ANXIETY NKA
[2022-06-08 14:29] LABS: APPEARANCE,URINE CLEAR (CLEAR); BILIRUBIN,URINE 2+ (NEGATIVE); BLOOD, URINE 3+ (NEGATIVE); COLOR,URINE YELLOW (YELLOW); LEUKOCYTE ESTERASE ,URINE NEGATIVE (NEGATIVE); NITRITE, URINE NEGATIVE (NEGATIVE); PH,URINE 5.5 (5.0-9.0); UGLUCOSE TRACE (NEGATIVE)
[2022-06-08 14:41] LABS: RBC,URINE TOO NUMEROUS TO COUN /HPF (0-5); WBC,URINE NONE SEEN /HPF (0-5)
--- NOTE | 2022-06-08 14:58 | NUR ---
MD CANDELARIA AT BEDSIDE FOR EVALUATION
[2022-06-08] MEDS ORDERED: MORPHINE SULFATE 4 MG/ML SYR IVP ONE (15:05)
[2022-06-08 15:27] LABS: PROTHROMBIN TIME 15.2 secs (10.8-13.4)
--- NOTE | 2022-06-08 16:06 | NUR ---
LAB AT BEDSIDE
[2022-06-08] MEDS ORDERED: FOLI1TAB90 PO (16:10)
[2022-06-08] MEDS ORDERED: ALBUTEROL 0.083% 2.5 MG/3 ML NEBU INH PRN (16:25)
[2022-06-08] MEDS ORDERED: ONDANSETRON 4 MG/2 ML VIAL IVP PRN (16:30)
[2022-06-08] MEDS ORDERED: POTASSIUM CHLORIDE 10 MEQ TABER PO PRN (16:30)
[2022-06-08] MEDS ORDERED: LORazepam 2 MG/ML VIAL IVP PRN (16:30)
[2022-06-08] MEDS ORDERED: ACETAMINOPHEN 325 MG TAB PO PRN (16:30)
[2022-06-08] MEDS ORDERED: DOCUSATE SODIUM 100 MG GELCAP PO PRN (16:30)
[2022-06-08 16:38] LABS: ALBUMIN 2.8 g/dL (3.4-5.0); CARBON DIOXIDE 26.7 mmol/L (21-32); CREATININE 0.7 mg/dL (0.6-1.3); TOTAL BILIRUBIN 11.1 mg/dL (0.0-1.0)
--- NOTE | 2022-06-08 16:51 | NUR ---
Patient will be admitted to care of MD FUNES. Admited to TELE. Will go to room 106A. Belongings list completed. Report to CRYSTAL GRAJEDA.
--- NOTE | 2022-06-08 16:52 | NUR ---
The patient's care was reviewed and supervised by Joan Brenner RN.
[2022-06-08 17:09] LABS: ANION GAP 10.8 (8-16); POTASSIUM 3.5 mmol/L (3.5-5.1)
[2022-06-08 17:17] VITALS: BP 127/66
--- NOTE | 2022-06-08 18:25 | NUR ---
THIS IS AN ADMISSION OF A 46 YEAR OLD FEMALE FOR ANEMIA UNDER THE CARE OF DOCTOR FUNES.
--- NOTE | 2022-06-08 19:30 | NUR ---
RECEIVED PATIENT FROM AM NURSE FOR CONTINUITY OF CARE. PATIENT IS STABLE
[2022-06-08 20:00] VITALS: BP 136/71
[2022-06-08] MEDS: AMITRIPTYLINE 25 MG TAB PO SCH (21:00)
--- NOTE | 2022-06-08 21:00 | NUR ---
1 PRBC INFUSING, NO ADVERSE REACTIONS NOTED
[2022-06-08] MEDS: ZOLPIDEM 10 MG TAB PO PRN (23:38)
[2022-06-09] VITALS: BP 148/88
--- NOTE | 2022-06-09 00:30 | NUR ---
BLOOD TRANSFUSION COMPLETED, NO ADVERSE REACTIONS NOTED
[2022-06-09] MEDS: MORPHINE SULFATE 2 MG/ML SYR IVP PRN ×5 (01:06→22:31)
[2022-06-09 03:11] LABS: BASOPHILS # (AUTO) 0.1 K/uL (0.00-0.22); EOSINOPHILS # (AUTO) 0.1 K/uL (0-0.4); EOSINOPHILS % (AUTO) 2.7 % (0.0-4.0); HEMATOCRIT 24.8 % (36-48); HEMOGLOBIN 8.5 g/dL (12.0-16.0); LYMPHOCYTES # (AUTO) 0.7 K/uL (2.5-16.5); LYMPHOCYTES % (AUTO) 13.3 % (20.5-51.1); MEAN CORPUSCULAR HEMOGLOBIN 39 pg (27-31); MEAN CORPUSCULAR HGB CONC 34 g/dL (33-37); MEAN CORPUSCULAR VOLUME 114.2 fL (80-94); MONOCYTES # (AUTO) 0.5 K/uL (0.8-1.0); MONOCYTES % (AUTO) 8.6 % (1.7-9.3); NEUTROPHILS # (AUTO) 4.1 K/uL (1.8-7.7); NEUTROPHILS % (AUTO) 74.4 % (42.2-75.2); PLATELET COUNT (AUTO) 42 K/uL (140-450); RED BLOOD CELL COUNT(AUTO) 2.17 MIL/uL (4.20-5.40); RED CELL DISTRIBUTION WIDTH 17.3 % (11.6-13.7); WHITE BLOOD COUNT (AUTO) 5.5 K/uL (4.8-10.8)
[2022-06-09 03:25] LABS: ANION GAP 5.6 (8-16); CARBON DIOXIDE 26.6 mmol/L (21-32); CREATININE 0.7 mg/dL (0.6-1.3); POTASSIUM 4.2 mmol/L (3.5-5.1)
--- NOTE | 2022-06-09 03:30 | NUR ---
HGB WENT UP AFTER 1 PRBC FROM 7.6 TO 8.5
[2022-06-09 04:00] VITALS: BP 134/52
[2022-06-09 08:00] VITALS: BP 143/84
[2022-06-09] MEDS: FUROSEMIDE 40 MG TAB PO SCH (08:40)
[2022-06-09] MEDS: SPIRONOLACTONE 50 MG TAB PO SCH (08:41)
[2022-06-09] MEDS: THIAMINE 100 MG TAB PO SCH (08:41)
[2022-06-09] MEDS: LACTULOSE 20 GM/30 ML UDC PO SCH (08:42)
[2022-06-09] MEDS: FOLIC ACID 1 MG TAB PO SCH (08:42)
[2022-06-09] MEDS: GABAPENTIN 100 MG CAP PO SCH (08:42)
[2022-06-09] MEDS: PENTOXIFYLLINE 400 MG TABER PO SCH (08:43)
--- NOTE | 2022-06-09 08:58 | NUR ---
PATIENT HAS BEEN SCREENED AND CATEGORIZED MODERATE NUTRITION RISK. PATIENT WILL BE SEEN WITHIN 3-5 DAYS OF ADMISSION. REVIEWED BY ARMANDO BURNHAM RD
[2022-06-09 12:00] VITALS: BP 140/82
[2022-06-09 16:00] VITALS: BP 117/56
--- NOTE | 2022-06-09 19:16 | NUR ---
ENDORSE PATIENT IN STABLE CONDITION TO PM SHIFT NURSE; PIV LAC 20G SALINE LOCK. PATIENT'S HGB=8.5 @0800, 06/09/2022
[2022-06-09 20:00] VITALS: BP 130/71
--- NOTE | 2022-06-09 20:00 | NUR ---
CHANGED IV TO THE LEFT WRIST GAUGE 22 X 1 ATTEMPT, DUSTIN IV SITE LEAKING, REMOVED WITH INTACT CANNULA. CLEANED PT, GOWN AND LINENS CHANGED.
[2022-06-09] MEDS: AMITRIPTYLINE 25 MG TAB PO SCH (20:11)
--- NOTE | 2022-06-09 20:15 | NUR ---
SCHEDULED MEDICATIONS ADMINISTERED. EDUCATED PATIENT ON PURPOSE OF THE MEDICATION SHE WAS RECEIVING. NO S/SX OF DISTRESS NOTED. WILL CONTINUE TO MONITOR.
[2022-06-09] MEDS: MAG SULF 2000 MG/WATER PREMIX 50 ML IV PRN (21:35)
[2022-06-09] MEDS: ZOLPIDEM 10 MG TAB PO PRN (23:58)
[2022-06-10] VITALS: BP 134/73
--- NOTE | 2022-06-10 00:45 | NUR ---
PATIENT AWAKE IN BED. CHEST RISE AND FALL NOTED, BREATHING EVEN AND UNLABORED VIA 2L NC. PATIENT STATED SHE WAS UNABLE TO FALL ASLEEP. AMBIEN WAS ADMINISTERED PRN AT 2352. NO SIGNS OF DISTRESS NOTED, WILL CONTINUE TO MAKE FREQUENT ROUNDS.
[2022-06-10] MEDS: MORPHINE SULFATE 2 MG/ML SYR IVP PRN ×6 (02:25→23:35)
[2022-06-10 04:00] VITALS: BP 123/74
--- NOTE | 2022-06-10 06:28 | NUR ---
PATIENT IS AWAKE, ALERT AND ORIENTED. COMPLAINING OF PAIN, MEDICATED ORDERED. ALL NEEDS ATTENDED TO. SAFETY PRECAUTIONS MAINTAINED DURING THE SHIFT. CALL LIGHT REMAINS WITHIN REACH.
[2022-06-10 06:45] LABS: ANION GAP 10.8 (8-16); CARBON DIOXIDE 25.9 mmol/L (21-32); CREATININE 0.6 mg/dL (0.6-1.3); POTASSIUM 3.7 mmol/L (3.5-5.1)
[2022-06-10 07:17] LABS: BASOPHILS % (AUTO) 0.5 % (0.0-2.0); EOSINOPHILS # (AUTO) 0.1 K/uL (0-0.4); EOSINOPHILS % (AUTO) 2.7 % (0.0-4.0); HEMATOCRIT 23.5 % (36-48); LYMPHOCYTES # (AUTO) 0.6 K/uL (2.5-16.5); LYMPHOCYTES % (AUTO) 11.5 % (20.5-51.1); MEAN CORPUSCULAR HEMOGLOBIN 39 pg (27-31); MEAN CORPUSCULAR HGB CONC 34 g/dL (33-37); MEAN CORPUSCULAR VOLUME 114.1 fL (80-94); MONOCYTES # (AUTO) 0.4 K/uL (0.8-1.0); MONOCYTES % (AUTO) 6.8 % (1.7-9.3); NEUTROPHILS # (AUTO) 4.1 K/uL (1.8-7.7); NEUTROPHILS % (AUTO) 78.5 % (42.2-75.2); PLATELET COUNT (AUTO) 40 K/uL (140-450); RED BLOOD CELL COUNT(AUTO) 2.06 MIL/uL (4.20-5.40); RED CELL DISTRIBUTION WIDTH 17.1 % (11.6-13.7); WHITE BLOOD COUNT (AUTO) 5.2 K/uL (4.8-10.8)
--- NOTE | 2022-06-10 07:30 | NUR ---
ENDORSED PATIENT FROM FACSIMILE OPERATOR NURSE.PATIENT IS ALERT ORIENTED.VITALS ARE STABLE.ALL SAFETY MEASURE INITIATED.POC DISCUSSED.WILL CONTINUE TO MONITOR.
[2022-06-10 08:00] VITALS: BP 126/64
[2022-06-10] MEDS: FOLIC ACID 1 MG TAB PO SCH (08:52)
[2022-06-10] MEDS: LACTULOSE 20 GM/30 ML UDC PO SCH (08:58)
[2022-06-10] MEDS: THIAMINE 100 MG TAB PO SCH (08:58)
[2022-06-10] MEDS: GABAPENTIN 100 MG CAP PO SCH (08:59)
[2022-06-10] MEDS: PENTOXIFYLLINE 400 MG TABER PO SCH (08:59)
[2022-06-10] MEDS: SPIRONOLACTONE 50 MG TAB PO SCH (09:00)
[2022-06-10] MEDS: FUROSEMIDE 40 MG TAB PO SCH (09:06)
[2022-06-10] MEDS: MAG SULF 2000 MG/WATER PREMIX 50 ML IV PRN (09:23)
[2022-06-10 12:00] VITALS: BP 122/75
--- NOTE | 2022-06-10 15:20 | NUR ---
PATIENT IS ALERT,ORIENTED.VITALS ARE STABLE.ON NASAL CANNULA WITH 2L O2 .ALWAYS ASKING FOR MORPHINE.@15;20 SHE COMPLAINED ABOUT PAIN WITH 9 INTENSITY.ADMINISTERED PAIN MEDS PER ORDER AFTER CHECKING VITALS.STOOL SPECIMEN FOR OCCULT BLOOD IS STILL UNCOLLECTED SHE DOESN'T HAVE A BOWEL MOVEMENT DURING THE SHIFT.ALL SAFETY MEASURES IN PLACE.
--- NOTE | 2022-06-10 15:23 | NUR ---
DC PLANNING LES MET WITH PT AT BEDSIDE TO COMPLETE ASSESSMENT. PT REPORTS NO CHANGES SINCE LAST VISIT. SW MET WITH PATIENT AT BEDSIDE TO COMPLETE ASSESSMENT. PATIENT REPORTS LIVING AT HOME WITH HER SON AT THE ADDRESS LISTED ON FILE. PATIENT REPORTS SHE CURRENTLY DOES NOT HAVE A WORKING PHONE NUMBER AND HAS YET TO REPLACE HER PHONE. PATIENT IDENTIFIED TITA (SON) [phone] EMERGENCY CONTACT AND MDM. PATIENT DENIES HAVING AD IN PLACE AND DECLINED AD OFFERED BY LES.PATIENT REPORTS MEETING WITH PCP NEEDED AND REPORTS LAST VISIT, FOUR MONTHS AGO. PT REPORTS SHE HAS STRUGGLED TO FOLLOW UP WITH PCP SINCE LAST DC. PT REPORTS DR HAS BEEN ON VACATION MAKING IT DIFFICULT FOR HER TO FOLLOW UP. PATIENT REPORTS MEDICATION COMPLIANCE WITH MEDICATIONS AND DENIED BARRIERS IN ACCESSING NEEDED MEDICATIONS. PT REPORTS THAT SHE IS CLOSE TO RUNNING OUT OF HER PRESCRIPTIONS. SW ENCOURAGED PT TO FOLLOW UP WITH PCP FOR REFILL. PT REPORTS SHE WILL SPEAK WITH [facility] PHYSICIAN OR CALL OFFICE TO INQUIRE ON REFILL. PATIENT REPORTS RECEIVING MEDICATION FROM [facility] [place], WHEN NEEDED. PATIENT DENIES BARRIERS IN ACCESS TO FOOD AND REPORTS RECEIVING GR BENEFITS OF $221 AND $200 MACHELLE FRESH BENEFITS. PATIENT REPORTS BEING INDEPENDENT IN ALL ACTIVITIES AND DENIES USE OF DME. PATIENT REPORTS ALCOHOL USE AND REPORTS UTILIZING ALCOHOL TO AID IN PANIC ATTACKS/ANXIETY ATTACKS. SW PROVIDED PT WITH PSYCHOEDUCATION ON SNF ALCOHOL USE. PT RECEPTIVE. PT REPORTS LAST DRINK 3 DAYS AGO AND REPORTS DRINKING ABOUT 2DAYS OUT OF THE WEEK. PT REPORTS DRINKING IS NOT THE ISSUE BUT ANXIETY IS. SW ENCOURAGED PT TO SEEK MENTAL HEALTH TX TO AID IN IDENTIFYING HEALTH COPING SKILLS. PATIENT RECEPTIVE AND ACCEPTED SUBSTANCE USE RESOURCES AND MENTAL HEALTH RESOURCES OFFERED BY LES. PATIENT DENIES HX. PATIENT REPORTS RECEIVING IN THE PAST, HOWEVER PT STRUGGLED TO RECALL NAME OF AGENCY. PATIENT REPORTS [place] PLAN IS TO RETURN HOME ONCE MEDICALLY STABLE. PT REPORTS SHE MAY REQUIRE RIDE SHARE SERVICE, SW ENCOURAGED PT TO NOTIFY NURSE OF NEEDED RIDE SO THAT ARRANGEMENT CAN BE MADE BY TOWN ADMINISTRATOR. PT VERBALIZED UNERSTANDING. LES INQUIRED ON ADDITIONAL RESOURCES NEEDED, PT DECLINED Addendum: 06/10/22 at 1527 by Charmaine HOWARD Amended: Links added.
[2022-06-10 16:00] VITALS: BP 102/59
--- NOTE | 2022-06-10 19:25 | NUR ---
ENDORSE PATIENT IN STABLE CONDITION TO PM SHIFT NURSE THAT PIV AT R. WRIST SALINE LOCK; MAGNESIUM=1.7 @0800 CORRECT WITH 2GM MAG-RIDER Addendum: 06/10/22 at 1928 by Maris Parada RN PIV AT L.WRIST 22G
--- NOTE | 2022-06-10 19:30 | NUR ---
RECEIVED BEDSIDE REPORT FROM DAY SHIFT RN FOR CONTINUITY OF CARE. PT IS AAOX4 ON 2L NC NOT IN ANY DISTRESS. PT IS AMBULATORY. GAIT STEADY. PT HAS LEFT WRIST 22 GAUGE SALINE LOCK. POC DISCUSSED. WILL CONTINUE TO MONITOR THE PT.
[2022-06-10 20:00] VITALS: BP 121/71
[2022-06-10] MEDS: AMITRIPTYLINE 25 MG TAB PO SCH (20:47)
--- NOTE | 2022-06-10 20:50 | NUR ---
SCHEDULE MEDICATIONS GIVEN. NO ADVERSE REACTION NOTED. WILL CONTINUE TO MONITOR THE PT.
--- NOTE | 2022-06-10 23:35 | NUR ---
PT COMPLAINED OF ABD, BACK, AND CHEST PAIN. 01/23. MORPHINE WAS GIVEN PER MD ORDER. NO OTHER COMPLAINS. STILL WAITING FOR PT TO HAVE BM FOR OCCULT BLOOD.
--- NOTE | 2022-06-11 02:46 | NUR ---
OBSERVED PT. PT IS AWAKE. PT NOT IN ANY ACUTE DISTRESS. PT IS HAVING CONVERSATIONS WITH HERSELF. PT IS DOING OKAY. CALL LIGHT WITHIN REACH. WILL CONTINUE TO MONITOR THE PT.
[2022-06-11] MEDS: MORPHINE SULFATE 2 MG/ML SYR IVP PRN ×3 (03:37→11:46)
[2022-06-11 04:00] VITALS: BP 123/65
--- NOTE | 2022-06-11 06:00 | NUR ---
CHECKED ON PT. PT HAS NOT HAD ANY BM DURING THE SHIFT. NE HAS ONLY URINATED. STILL SOME SMALL VAGINAL BLEEDING. PT HAS NO COMPLAINS AT THIS TIME. WILL CONTINUE TO MONITOR THE PT.
[2022-06-11 06:41] LABS: BASOPHILS % (AUTO) 0.2 % (0.0-2.0); EOSINOPHILS # (AUTO) 0.1 K/uL (0-0.4); EOSINOPHILS % (AUTO) 2.2 % (0.0-4.0); HEMATOCRIT 22.7 % (36-48); HEMOGLOBIN 7.8 g/dL (12.0-16.0); LYMPHOCYTES # (AUTO) 0.8 K/uL (2.5-16.5); LYMPHOCYTES % (AUTO) 14.1 % (20.5-51.1); MEAN CORPUSCULAR HEMOGLOBIN 39 pg (27-31); MEAN CORPUSCULAR HGB CONC 34 g/dL (33-37); MONOCYTES # (AUTO) 0.5 K/uL (0.8-1.0); MONOCYTES % (AUTO) 9.3 % (1.7-9.3); NEUTROPHILS # (AUTO) 4.1 K/uL (1.8-7.7); NEUTROPHILS % (AUTO) 74.2 % (42.2-75.2); PLATELET COUNT (AUTO) 42 K/uL (140-450); RED BLOOD CELL COUNT(AUTO) 2.01 MIL/uL (4.20-5.40); RED CELL DISTRIBUTION WIDTH 16.9 % (11.6-13.7); WHITE BLOOD COUNT (AUTO) 5.5 K/uL (4.8-10.8)
[2022-06-11 06:47] LABS: ANION GAP 10.9 (8-16); CARBON DIOXIDE 25.9 mmol/L (21-32); CREATININE 0.6 mg/dL (0.6-1.3); POTASSIUM 3.8 mmol/L (3.5-5.1)
--- NOTE | 2022-06-11 07:13 | NUR ---
ENDORSED PT TO DAY SHIFT RN FOR CONTINUITY OF CARE. PT IS STABLE.
--- NOTE | 2022-06-11 07:24 | NUR ---
PT UP TO RESTROOM. AMBULATING WITH A STEADY GAIT. NO GUARDING OR GRIMACING OR SOB. NO ACUTE DISTRESS NOTED AT THIS TIME. [id number].
[2022-06-11 08:00] VITALS: BP 127/65
[2022-06-11] MEDS: THIAMINE 100 MG TAB PO SCH (08:26)
[2022-06-11] MEDS: PENTOXIFYLLINE 400 MG TABER PO SCH (08:27)
[2022-06-11] MEDS: FOLIC ACID 1 MG TAB PO SCH (08:27)
[2022-06-11] MEDS: GABAPENTIN 100 MG CAP PO SCH (08:27)
[2022-06-11] MEDS: LACTULOSE 20 GM/30 ML UDC PO SCH (08:27)
[2022-06-11] MEDS: FUROSEMIDE 40 MG TAB PO SCH (08:27)
[2022-06-11] MEDS: SPIRONOLACTONE 50 MG TAB PO SCH (08:27)
[2022-06-11] MEDS ORDERED: FERR325E14 PO (09:58)
--- NOTE | 2022-06-11 14:45 | NUR ---
PT. DISCHARGED TO HOME VIA UBER. AMBULATED TO W/C WITH A STEADY GAIT. NO C/O PAIN, NO SOB. NO ACUTE DISTRESS NOTED AT THIS TIME. [id number].
== END 2022-06-11 15:19 | disposition home or self-care (01) | DRG 280 ==
LOC: MED 12:23 → MTU 16:27
PROVIDERS: ADMIT Family Medicine; ATTEND Family Medicine
PROC: 30233N1 Transfusion of Nonautologous Red Blood Cells into Peripheral Vein, Percutaneous Approach (ICD-10-PCS; principal; 2022-06-08)
DX: K70.30 Alcoholic cirrhosis of liver without ascites (principal); E43 Unspecified severe protein-calorie malnutrition; D69.6 Thrombocytopenia, unspecified; I11.0 Hypertensive heart disease with heart failure; D63.8 Anemia in other chronic diseases classified elsewhere; R65.10 Systemic inflammatory response syndrome (SIRS) of non-infectious origin without acute organ dysfunction; E87.1 Hypo-osmolality and hyponatremia; I50.9 Heart failure, unspecified; E88.09 Other disorders of plasma-protein metabolism, not elsewhere classified; K92.2 Gastrointestinal hemorrhage, unspecified; N93.9 Abnormal uterine and vaginal bleeding, unspecified; E83.42 Hypomagnesemia; F10.10 Alcohol abuse, uncomplicated; Z20.822 Contact with and (suspected) exposure to COVID-19; E80.6 Other disorders of bilirubin metabolism; N83.202 Unspecified ovarian cyst, left side; Z96.662 Presence of left artificial ankle joint; Z90.49 Acquired absence of other specified parts of digestive tract; Z68.28 Body mass index [BMI] 28.0-28.9, adult
CPT/HCPCS: 36415; 36430; 71045; 76830; 80048; 80053; 81001; 83735; 84484; 85025; 85610; 85730; 86886; 86900; 86901; 86920; 87081; 94640; 96374; 99285; J2060; J2270; J3475; J7613; P9016; Q0092

== ENCOUNTER 2022-06-21 18:56 | Inpatient (IN) | payer MEDICAID ==
[~2022-06-21] VITALS: Ht 177.8 cm; Wt 99.8 kg
[~2022-06-21 18:56] MED LIST changes: +FERR325E14 PO; +FOLI1TAB90 PO
[2022-06-21 18:58] VITALS: BP 152/77
--- NOTE | 2022-06-21 19:03 | NUR ---
GASPER ROMERO TO BED #6
--- NOTE | 2022-06-21 19:26 | NUR ---
Patient being evaluated by physician at bedside.
--- NOTE | 2022-06-21 19:27 | NUR ---
Report given to SAMSON Lowe for transfer of care.
--- NOTE | 2022-06-21 19:27 | NUR ---
Dr. Bobby evaluating patient at bedside.
--- NOTE | 2022-06-21 19:50 | NUR ---
46 Y/O F presents with 9/10 chest pain with pressure x3days. pt stated this always happens to herand she has had NVD. Skin intact, A&Ox3, denies any blood thinners or medications at home. pt states she is ambulatory with a walker or cane. pt appears under the influence of alcohol PMH-pt denies NKA
[2022-06-21 20:11] LABS: BASOPHILS % (AUTO) 0.3 % (0.0-2.0); EOSINOPHILS # (AUTO) 0.1 K/uL (0-0.4); EOSINOPHILS % (AUTO) 1.5 % (0.0-4.0); HEMATOCRIT 27.5 % (36-48); HEMOGLOBIN 9.3 g/dL (12.0-16.0); LYMPHOCYTES # (AUTO) 0.8 K/uL (2.5-16.5); LYMPHOCYTES % (AUTO) 19.4 % (20.5-51.1); MEAN CORPUSCULAR HEMOGLOBIN 38 pg (27-31); MEAN CORPUSCULAR HGB CONC 34 g/dL (33-37); MONOCYTES # (AUTO) 0.3 K/uL (0.8-1.0); MONOCYTES % (AUTO) 7.8 % (1.7-9.3); NEUTROPHILS # (AUTO) 2.9 K/uL (1.8-7.7); PLATELET COUNT (AUTO) 50 K/uL (140-450); RED BLOOD CELL COUNT(AUTO) 2.45 MIL/uL (4.20-5.40); WHITE BLOOD COUNT (AUTO) 4.1 K/uL (4.8-10.8)
[2022-06-21 20:42] LABS: CARBON DIOXIDE 25.6 mmol/L (21-32); CREATININE 0.7 mg/dL (0.6-1.3); POTASSIUM 3.6 mmol/L (3.5-5.1)
[2022-06-21 20:48] LABS: ALBUMIN 2.4 g/dL (3.4-5.0); TOTAL BILIRUBIN 11.9 mg/dL (0.0-1.0)
[2022-06-21] MEDS ORDERED: MORPHINE SULFATE 4 MG/ML SYR IVP ONE (21:25)
--- NOTE | 2022-06-21 21:30 | NUR ---
UA collected and sent to lab
[2022-06-21 21:35] LABS: APPEARANCE,URINE CLEAR (CLEAR); BILIRUBIN,URINE LARGE (NEGATIVE); BLOOD, URINE MODERATE (NEGATIVE); LEUKOCYTE ESTERASE ,URINE NEGATIVE (NEGATIVE); NITRITE, URINE NEGATIVE (NEGATIVE); PH,URINE 6.5 (5.0-9.0); UGLUCOSE NEGATIVE (NEGATIVE)
[2022-06-21 21:39] LABS: COLOR,URINE AMBER (YELLOW)
[2022-06-21 21:55] LABS: WBC,URINE NONE SEEN /HPF (0-5)
[2022-06-21] MEDS ORDERED: LORazepam 2 MG/ML VIAL IVP PRN (22:15)
[2022-06-21] MEDS ORDERED: DOCUSATE SODIUM 100 MG GELCAP PO PRN (22:15)
[2022-06-21] MEDS ORDERED: MAG SULF 2000 MG/WATER PREMIX 50 ML IV PRN (22:15)
[2022-06-21] MEDS ORDERED: ZOLPIDEM 10 MG TAB PO PRN (22:15)
[2022-06-21] MEDS ORDERED: POTASSIUM CHLORIDE 10 MEQ TABER PO PRN (22:15)
[2022-06-21] MEDS ORDERED: PIPERACILLIN/TAZOBACTAM 3.375 GM in DEXTROSE 5% 50 ML IV SCH (22:30)
--- NOTE | 2022-06-21 23:00 | NUR ---
pt resting in room, on school bus monitor, ice chips at bedside
--- NOTE | 2022-06-22 | NUR ---
Fidel rosales in [facility] - 06/22/22 at 0138 by KATHRINEPB pt ambulatory to restroom
--- NOTE | 2022-06-22 00:10 | NUR ---
Fidel rosales in [facility] - 06/22/22 at 0139 by LIZETH pt returned to room, on medical information specialist
--- NOTE | 2022-06-22 01:45 | NUR ---
Upon walking into pt's room, I noticed x1 episode of vomit on the floor next to bed pt's R side. appeared bile like, light yellow. pt deneid any NV, and states pain is 9.5/10 lower abdomen. pt care completed and bedding changed.
[2022-06-22] MEDS: MORPHINE SULFATE 2 MG/ML SYR IVP PRN ×5 (02:19→21:40)
--- NOTE | 2022-06-22 02:43 | NUR ---
Found another episode of vomit on the floor in pt's room R side of the bed. pt did not use vomit bag that was placed with her. when asked pt about feeling nausea, pt denied and stated "I dont remember vomiting, i am not nauseated." pt denies any nausea or vomit
--- NOTE | 2022-06-22 04:00 | NUR ---
pt awake and sitting up in bed. ice chips at bedside. awaiting admission
[2022-06-22] MEDS ORDERED: PIPERACILLIN/TAZOBACTAM 3.375 GM VIAL IV ONE (05:08)
[2022-06-22] MEDS: PIPERACILLIN/TAZOBACTAM 3.375 GM in DEXTROSE 5% 50 ML IV SCH ×3 (05:09→21:39)
[2022-06-22] MEDS: NACL 0.9% 1,000 ML IV SCH ×2 (05:15→06:08)
--- NOTE | 2022-06-22 06:26 | NUR ---
pt is awake and sitting up. denies any NVD. pt states her pain is a 9/10 in lower abdomen, awaiting admission
--- NOTE | 2022-06-22 06:41 | NUR ---
lab at bedside
[2022-06-22 07:07] LABS: BASOPHILS % (AUTO) 0.3 % (0.0-2.0); EOSINOPHILS # (AUTO) 0.1 K/uL (0-0.4); EOSINOPHILS % (AUTO) 1.9 % (0.0-4.0); HEMATOCRIT 25.9 % (36-48); HEMOGLOBIN 8.8 g/dL (12.0-16.0); LYMPHOCYTES # (AUTO) 0.8 K/uL (2.5-16.5); LYMPHOCYTES % (AUTO) 19.9 % (20.5-51.1); MEAN CORPUSCULAR HEMOGLOBIN 38 pg (27-31); MEAN CORPUSCULAR HGB CONC 34 g/dL (33-37); MEAN CORPUSCULAR VOLUME 113.4 fL (80-94); MONOCYTES # (AUTO) 0.4 K/uL (0.8-1.0); MONOCYTES % (AUTO) 8.7 % (1.7-9.3); NEUTROPHILS # (AUTO) 2.9 K/uL (1.8-7.7); NEUTROPHILS % (AUTO) 69.2 % (42.2-75.2); PLATELET COUNT (AUTO) 48 K/uL (140-450); RED BLOOD CELL COUNT(AUTO) 2.28 MIL/uL (4.20-5.40); WHITE BLOOD COUNT (AUTO) 4.2 K/uL (4.8-10.8)
--- NOTE | 2022-06-22 07:12 | NUR ---
Report and transfer of care to Gilberto GRAJEDA
[2022-06-22 07:16] LABS: ANION GAP 13.8 (8-16); CARBON DIOXIDE 22.9 mmol/L (21-32); CREATININE 0.5 mg/dL (0.6-1.3); POTASSIUM 3.7 mmol/L (3.5-5.1)
--- NOTE | 2022-06-22 07:21 | NUR ---
ASSUMED PATIENT CARE, CONCUR WITH PRIOR NURSING ASSESSMENTS.
--- NOTE | 2022-06-22 07:25 | NUR ---
IV SITE TO LAC NOTED TO BE SWOLLEN, RESTARTED TO RIGHT WRIST GAUGE 20. PRESSURE DRESSING APPLIED TO LAC.
[2022-06-22] MEDS: ALBUTEROL 0.083% 2.5 MG/3 ML NEBU INH PRN (07:29)
[2022-06-22 08:00] VITALS: BP 153/82
--- NOTE | 2022-06-22 08:00 | NUR ---
RECEIVED REPORT FROM ER NURSE FOR CONTINUITY OF CARE. PT STABLE UPON TRANSPORT AND NO SIGN OF DISTRESS AT THAT TIME. PT IS A&OX4, SKIN IS INTACT WITH A FEW SMALL BRUISES, PT NEEDS ASSISTANCE TO AMBULATE AND WAS PLACED ON A DARREN WICK UPON ARRIVAL. PT COMPLAINED OF SOME PAIN AND WAS GIVEN MEDICATION. PT HAS A 20G IV ON HE R WRIST TAT IS PATENT AND INTACT. ALL SAFETY MEASURES IN PLACE AT THIS TIME WITH CALL LIGHT WITHIN REACH AND BED IN LOW POSITION. WILL CONTINUE TO MONITOR PTS PROGRESS.
--- NOTE | 2022-06-22 08:12 | NUR ---
TRANSPORTED PATIENT TO [facility] VIA GURNEY WITH ACLS MONITORING, PATIENT REPORT GIVEN TO SAMSON ROGERS. CONTINUITY OF CARE ENDORSED. REAPPLIED PRESSURE DRESSING TO LAC IV SITE, STILL WITH MODERATE BLEEDING. PATIENT STABLE OTHERWISE, VS WNL.
[2022-06-22] MEDS: LACTULOSE 20 GM/30 ML UDC PO SCH (09:00)
[2022-06-22] MEDS ORDERED: SPIRONOLACTONE 50 MG TAB PO SCH (09:00)
--- NOTE | 2022-06-22 09:12 | NUR ---
PATIENT HAS BEEN SCREENED AND CATEGORIZED MODERATE NUTRITION RISK. PATIENT WILL BE SEEN WITHIN 3-5 DAYS OF ADMISSION. REVIEWED BY ARMANDO BURNHAM RD
[2022-06-22] MEDS: FOLIC ACID 1 MG TAB PO SCH (09:45)
[2022-06-22] MEDS: FUROSEMIDE 40 MG/4 ML VIAL IVP SCH ×2 (09:45→21:00)
[2022-06-22] MEDS: FERROUS SULFATE 325 MG TABEC PO SCH (09:45)
[2022-06-22] MEDS: PENTOXIFYLLINE 400 MG TABER PO SCH (09:46)
[2022-06-22] MEDS: GABAPENTIN 100 MG CAP PO SCH (09:46)
[2022-06-22] MEDS: THIAMINE 100 MG TAB PO SCH (09:46)
[2022-06-22] MEDS: ONDANSETRON 4 MG/2 ML VIAL IVP PRN ×3 (10:51→21:39)
[2022-06-22 12:00] VITALS: BP 158/89
[2022-06-22 16:00] VITALS: BP 139/83
[2022-06-22] MEDS: chlordiazePOXIDE 25 MG CAP PO SCH (17:21)
[2022-06-22 20:00] VITALS: BP 151/83
[2022-06-22] MEDS: AMITRIPTYLINE 25 MG TAB PO SCH (21:39)
--- NOTE | 2022-06-22 21:45 | NUR ---
ASSESSMENT COMPLETED PLAN OF CARE REVIEWED PT ENDORSES ABDOMINAL PAIN AND NAUSEA MEDICATED ORDERED PT ENDORSES SHE FEELS ANXIOUS AT THIS TIME PT MADE AWARE ATIVAN WOULD BE GIVEN ORDERED ORIENTED TO ROOM CALL LIGHT SIDE RAILS UP BED ALARM ACTIVATED PT MADE AWARE TO CALL FOR ASSISSTANCE CALL LIGHT IN REACH
[2022-06-23] VITALS: BP 135/81
[2022-06-23] MEDS: MORPHINE SULFATE 2 MG/ML SYR IVP PRN ×2 (01:45→08:40)
--- NOTE | 2022-06-23 01:49 | NUR ---
AWAKE COMPLAINING OF PAIN MEDICATED ORDERED WILL CONTINUE TO MONITOR AND ASSESS
[2022-06-23 04:00] VITALS: BP 127/71
[2022-06-23] MEDS: PIPERACILLIN/TAZOBACTAM 3.375 GM in DEXTROSE 5% 50 ML IV SCH ×3 (04:27→21:50)
--- NOTE | 2022-06-23 05:37 | NUR ---
PT ENDORSES PURWICK IS MISPLACED ABSORBANT PADS CHANGED PT GIVEN WIPES FOR [facility] PURWICK PLACED PROPERLY
[2022-06-23 06:05] LABS: BASOPHILS % (AUTO) 0.5 % (0.0-2.0); EOSINOPHILS # (AUTO) 0.1 K/uL (0-0.4); EOSINOPHILS % (AUTO) 2.8 % (0.0-4.0); HEMATOCRIT 24.6 % (36-48); HEMOGLOBIN 8.5 g/dL (12.0-16.0); LYMPHOCYTES # (AUTO) 0.5 K/uL (2.5-16.5); LYMPHOCYTES % (AUTO) 14.9 % (20.5-51.1); MEAN CORPUSCULAR HEMOGLOBIN 39 pg (27-31); MEAN CORPUSCULAR HGB CONC 35 g/dL (33-37); MEAN CORPUSCULAR VOLUME 111.3 fL (80-94); MONOCYTES # (AUTO) 0.3 K/uL (0.8-1.0); MONOCYTES % (AUTO) 9.6 % (1.7-9.3); NEUTROPHILS # (AUTO) 2.6 K/uL (1.8-7.7); NEUTROPHILS % (AUTO) 72.2 % (42.2-75.2); PLATELET COUNT (AUTO) 42 K/uL (140-450); RED BLOOD CELL COUNT(AUTO) 2.21 MIL/uL (4.20-5.40); RED CELL DISTRIBUTION WIDTH 15.9 % (11.6-13.7); WHITE BLOOD COUNT (AUTO) 3.6 K/uL (4.8-10.8)
[2022-06-23 06:08] LABS: ANION GAP 10.8 (8-16); CARBON DIOXIDE 29.4 mmol/L (21-32); CREATININE 0.8 mg/dL (0.6-1.3); POTASSIUM 3.2 mmol/L (3.5-5.1)
--- NOTE | 2022-06-23 07:36 | NUR ---
PT RESTING IN BED NO GUARDING OR GRIMACING. NO ACUTE DISTRESS NOTED AT THIS TIME. [id number].
[2022-06-23 08:00] VITALS: BP 126/78
[2022-06-23] MEDS: chlordiazePOXIDE 25 MG CAP PO SCH ×2 (08:30→13:17)
[2022-06-23] MEDS: SPIRONOLACTONE 50 MG TAB PO SCH (08:30)
[2022-06-23] MEDS: FERROUS SULFATE 325 MG TABEC PO SCH (08:30)
[2022-06-23] MEDS: FOLIC ACID 1 MG TAB PO SCH (08:30)
[2022-06-23] MEDS: GABAPENTIN 100 MG CAP PO SCH (08:30)
[2022-06-23] MEDS: THIAMINE 100 MG TAB PO SCH (08:30)
[2022-06-23] MEDS: LACTULOSE 20 GM/30 ML UDC PO SCH ×3 (08:33→09:30)
[2022-06-23] MEDS: PENTOXIFYLLINE 400 MG TABER PO SCH (09:00)
[2022-06-23] MEDS: FUROSEMIDE 40 MG/4 ML VIAL IVP SCH ×2 (09:30→15:00)
[2022-06-23 12:00] VITALS: BP 140/80
[2022-06-23] MEDS: ONDANSETRON 4 MG/2 ML VIAL IVP PRN (12:05)
[2022-06-23] MEDS ORDERED: MAG SULF 2000 MG/WATER PREMIX 50 ML IV SCH (15:00)
[2022-06-23 16:00] VITALS: BP 120/75
--- NOTE | 2022-06-23 19:20 | NUR ---
RECEIVED PT FROM AM NURSE FOR CONTINUITY OF CARE. PT IS STABLE
[2022-06-23 20:00] VITALS: BP 126/70
[2022-06-23] MEDS: AMITRIPTYLINE 25 MG TAB PO SCH (21:51)
--- NOTE | 2022-06-24 01:00 | NUR ---
PATIENT SLEEPING COMFORTABLY IN BED, BREATHING EVEN AND UNLABORED, NO DISTRESS NOTED
[2022-06-24] MEDS: ACETAMINOPHEN 325 MG TAB PO PRN ×2 (01:25→13:52)
[2022-06-24 04:00] VITALS: BP 115/71
[2022-06-24] MEDS: PIPERACILLIN/TAZOBACTAM 3.375 GM in DEXTROSE 5% 50 ML IV SCH ×3 (04:50→20:23)
[2022-06-24 05:42] LABS: BASOPHILS % (AUTO) 0.2 % (0.0-2.0); EOSINOPHILS # (AUTO) 0.1 K/uL (0-0.4); EOSINOPHILS % (AUTO) 2.9 % (0.0-4.0); HEMOGLOBIN 7.6 g/dL (12.0-16.0); LYMPHOCYTES # (AUTO) 0.7 K/uL (2.5-16.5); LYMPHOCYTES % (AUTO) 17.3 % (20.5-51.1); MEAN CORPUSCULAR HEMOGLOBIN 38 pg (27-31); MEAN CORPUSCULAR HGB CONC 35 g/dL (33-37); MEAN CORPUSCULAR VOLUME 110.8 fL (80-94); MONOCYTES # (AUTO) 0.4 K/uL (0.8-1.0); MONOCYTES % (AUTO) 10.4 % (1.7-9.3); NEUTROPHILS # (AUTO) 2.7 K/uL (1.8-7.7); NEUTROPHILS % (AUTO) 69.2 % (42.2-75.2); PLATELET COUNT (AUTO) 39 K/uL (140-450); RED BLOOD CELL COUNT(AUTO) 1.98 MIL/uL (4.20-5.40); RED CELL DISTRIBUTION WIDTH 15.5 % (11.6-13.7); WHITE BLOOD COUNT (AUTO) 3.8 K/uL (4.8-10.8)
[2022-06-24 06:35] LABS: CARBON DIOXIDE 31.3 mmol/L (21-32); CREATININE 0.8 mg/dL (0.6-1.3); POTASSIUM 3.3 mmol/L (3.5-5.1)
--- NOTE | 2022-06-24 07:30 | NUR ---
RECEIVED REPORT FROM DIRECTOR STYLE NURSE IN STABLE CONDITION. WILL CONTINUE TO MONITOR.
[2022-06-24] MEDS: ALBUTEROL 0.083% 2.5 MG/3 ML NEBU INH PRN ×2 (07:46→14:06)
--- NOTE | 2022-06-24 07:46 | NUR ---
RECEIVED ON SUPPLEMENTAL OXYGEN AT 3 LPM VIA NC LOC ASLEEP AWAKENS WITH PATIENT NAME CALLED C/O SOB ASSESSMENT DONE REVIEWED CXR 06/21 & 06/24 PATIENT CANDIDATE FOR INCENTIVE SPIROMETRY THERAPY HHN PRN THERAPY GIVEN AT THIS TIME MODERATE NPC DURING THERAPY
[2022-06-24 08:00] VITALS: BP 121/67
--- NOTE | 2022-06-24 09:00 | NUR ---
JOHN MEDICATION ADMINISTERED PER EMAR. PT TOLERATED, FULL ASSESSMENT COMPLETED. ALL SAFETY MEASURES IN PLACE, CALL LIGHT WITHIN REACH. WILL CONTINUE TO MONITOR.
[2022-06-24] MEDS: PENTOXIFYLLINE 400 MG TABER PO SCH (09:29)
[2022-06-24] MEDS: GABAPENTIN 100 MG CAP PO SCH (09:29)
[2022-06-24] MEDS: MULTIVITAMIN/MINERALS 1 TAB PO SCH (09:29)
[2022-06-24] MEDS: THIAMINE 100 MG TAB PO SCH (09:29)
[2022-06-24] MEDS: SPIRONOLACTONE 50 MG TAB PO SCH (09:30)
[2022-06-24] MEDS: FERROUS SULFATE 325 MG TABEC PO SCH (09:30)
[2022-06-24] MEDS: FOLIC ACID 1 MG TAB PO SCH (09:30)
[2022-06-24] MEDS: FUROSEMIDE 40 MG/4 ML VIAL IVP SCH (09:31)
[2022-06-24] MEDS ORDERED: MAG SULF 2000 MG/WATER PREMIX 100 ML IV ONE (11:24)
[2022-06-24 12:00] VITALS: BP 124/75
--- NOTE | 2022-06-24 13:52 | NUR ---
PRN PAIN MEDICATION ADMINISTERED PER MD ORDER, PT TOLERATED.
--- NOTE | 2022-06-24 14:06 | NUR ---
PATIENT C/O SOB ASSESSMENT DONE HHN PRN THERAPY GIVEN ENCOURAGED PATIENT FOR INTERMITTENT DEEP BREATHING AND COUGH DURING THERAPY PARTICIPATION WITH INCENTIVE SPIROMETRY BETTER IMPROVED ml 1000 TO 1500
--- NOTE | 2022-06-24 15:12 | NUR ---
DC PLANNING LES MET WITH PT AT BEDSIDE TO COMPLETE ASSESSMENT. PT REPORTS NO CHANGES SINCE LAST VISIT ON 06/08. SW MET WITH PATIENT AT BEDSIDE TO COMPLETE ASSESSMENT. PATIENT REPORTS LIVING AT HOME WITH HER SON AT THE ADDRESS LISTED ON FILE. PATIENT REPORTS SHE CURRENTLY DOES NOT HAVE A WORKING PHONE NUMBER AND HAS YET TO REPLACE HER PHONE. PATIENT IDENTIFIED TITA (SON) [phone] EMERGENCY CONTACT AND MDM. PATIENT DENIES HAVING AD IN PLACE AND DECLINED AD OFFERED BY LES.PATIENT REPORTS MEETING WITH PCP NEEDED AND REPORTS LAST VISIT, FOUR MONTHS AGO. PT REPORTS SHE HAS STRUGGLED TO FOLLOW UP WITH PCP SINCE LAST DC. PT REPORTS HAS BEEN ON VACATION MAKING IT DIFFICULT FOR HER TO FOLLOW UP. PATIENT REPORTS MEDICATION COMPLIANCE WITH MEDICATIONS AND DENIED BARRIERS IN ACCESSING NEEDED MEDICATIONS. PT REPORTS THAT SHE IS CLOSE TO RUNNING OUT OF HER PRESCRIPTIONS. SW ENCOURAGED PT TO FOLLOW UP WITH PCP FOR REFILL. PT REPORTS SHE WILL SPEAK WITH [facility] PHYSICIAN OR CALL OFFICE TO INQUIRE ON REFILL. PATIENT REPORTS RECEIVING MEDICATION FROM [facility] IN [place], WHEN NEEDED. PATIENT DENIES BARRIERS IN ACCESS TO FOOD AND REPORTS RECEIVING GR BENEFITS OF $221 AND $200 MACHELLE FRESH BENEFITS. PATIENT REPORTS BEING INDEPENDENT IN ALL ACTIVITIES AND DENIES USE OF DME. PATIENT REPORTS ALCOHOL USE AND REPORTS UTILIZING ALCOHOL TO AID IN PANIC ATTACKS/ANXIETY ATTACKS. SW PROVIDED PT WITH PSYCHOEDUCATION ON PARTS PULLER ALCOHOL USE. PT RECEPTIVE. PT REPORTS LAST DRINK 3 DAYS AGO AND REPORTS DRINKING ABOUT 2DAYS OUT OF THE WEEK. PT REPORTS DRINKING A GLASS OR TWO HOWEVER, REPORTS DRINKING DOES NOT IMPAIR FX. PT REPORTS DRINKING IS NOT THE ISSUE BUT ANXIETY IS. SW ENCOURAGED PT TO SEEK MENTAL HEALTH TX TO AID IN IDENTIFYING HEALTHY COPING SKILLS. PATIENT RECEPTIVE AND ACCEPTED SUBSTANCE USE RESOURCES AND MENTAL HEALTH RESOURCES OFFERED BY LES. . PATIENT REPORTS RECEIVING HH IN THE PAST, HOWEVER PT STRUGGLED TO RECALL NAME OF AGENCY. PATIENT REPORTS VT PLAN IS TO RETURN HOME ONCE MEDICALLY STABLE. PT REPORTS SHE MAY REQUIRE RIDE SHARE SERVICE, SW ENCOURAGED PT TO NOTIFY NURSE OF NEEDED RIDE SO THAT ARRANGEMENT CAN BE MADE BY SALES ROUTE DRIVER HELPER. PT VERBALIZED UNDERSTANDING. SW INQUIRED ON ADDITIONAL RESOURCES NEEDED, PT DECLINED. Addendum: 06/24/22 at 1513 by Charmaine HOWARD Amended: Links added.
[2022-06-24 16:00] VITALS: BP 106/82
[2022-06-24] MEDS ORDERED: POTASSIUM CHLORIDE 40 MEQ, LIDOCAINE 1% 25 MG in NACL 0.9% 250 ML IV ONE (16:30)
--- NOTE | 2022-06-24 16:42 | NUR ---
06/24/22 RD INITIAL ASSESSMENT COMPLETED PLEASE REFER TO NUTRITION ASSESSMENT UNDER CARE ACTIVITY FOR ESTIMATED NUTRITIONAL NEEDS. 1. CONTINUE CARDIAC DIET 2. RECOMMEND ENSURE BID. -ENSURE BID WILL PROVIDE 700 KCALS, 40 G PROTEIN. 3. CUSTOMER DEVELOPMENT MANAGER EDUCATED PT ON HEART HEALTHY NUTRITION THERAPY. 4. MONITOR GI, PO INTAKE, AND LAB VALUES. 5. RD TO FOLLOW-UP 3-5 DAYS, MODERATE RISK REVIEWED BY ARMANDO BURNHAM RD
--- NOTE | 2022-06-24 18:35 | NUR ---
ALL NEEDS HAVE BEEN MET THROUGHOUT THE SHIFT. ALL SAFETY MEASURES IN PLACE, CALL LIGHT WITHIN REACH.
[2022-06-24 20:00] VITALS: BP 111/67
--- NOTE | 2022-06-24 20:22 | NUR ---
PATIENT AAOX4. ABLE TO COMMUNICATE WITH HER NEEDS. NO DISTRESS. ON O2 3L NC TOLERATING WELL SATING 94%. IV KCL 40 MEQ INFUSING ON THE LEFT AC. CALL LIGHT WITHIN REACH. SAFETY PRECAUTIONS IN PLACE.
--- NOTE | 2022-06-24 20:23 | NUR ---
ADMINISTERED SCHEDULED DUE MEDICATIONS.
[2022-06-24] MEDS: AMITRIPTYLINE 25 MG TAB PO SCH (20:24)
[2022-06-25] VITALS: BP 108/68
[2022-06-25 04:00] VITALS: BP 108/65
[2022-06-25] MEDS: PIPERACILLIN/TAZOBACTAM 3.375 GM in DEXTROSE 5% 50 ML IV SCH (04:18)
[2022-06-25 05:45] LABS: BASOPHILS % (AUTO) 0.1 % (0.0-2.0); EOSINOPHILS # (AUTO) 0.1 K/uL (0-0.4); EOSINOPHILS % (AUTO) 3.1 % (0.0-4.0); HEMATOCRIT 21.8 % (36-48); HEMOGLOBIN 7.4 g/dL (12.0-16.0); LYMPHOCYTES # (AUTO) 0.6 K/uL (2.5-16.5); MEAN CORPUSCULAR HEMOGLOBIN 38 pg (27-31); MEAN CORPUSCULAR HGB CONC 34 g/dL (33-37); MEAN CORPUSCULAR VOLUME 111.5 fL (80-94); MONOCYTES # (AUTO) 0.4 K/uL (0.8-1.0); MONOCYTES % (AUTO) 9.8 % (1.7-9.3); NEUTROPHILS # (AUTO) 2.9 K/uL (1.8-7.7); PLATELET COUNT (AUTO) 45 K/uL (140-450); RED BLOOD CELL COUNT(AUTO) 1.95 MIL/uL (4.20-5.40); RED CELL DISTRIBUTION WIDTH 15.6 % (11.6-13.7)
[2022-06-25 05:53] LABS: ANION GAP 9.4 (8-16); CARBON DIOXIDE 32.3 mmol/L (21-32); POTASSIUM 3.7 mmol/L (3.5-5.1)
--- NOTE | 2022-06-25 07:23 | NUR ---
BEDSIDE REPORT GIVEN TO AM SHIFT NURSE TRANG FOR CONTINUITY OF CARE.
--- NOTE | 2022-06-25 07:30 | NUR ---
RECIEVED PATIENT FROM INSPECTOR DIALS NURSE,PATIENT IS SLEEPING,CHEST RISING AND FALLING EVEN,ON NC 3L.ALL SAFETY MEASURES IN PLACE.WILL CONTINUE TO MONITOR.
[2022-06-25 08:00] VITALS: BP 111/67
--- NOTE | 2022-06-25 08:02 | NUR ---
NOTIFIIED MD REGARDING THE LAB VALUES.ADVISED POSSIBLE DISCHARGE.
[2022-06-25] MEDS: ALBUTEROL 0.083% 2.5 MG/3 ML NEBU INH PRN (08:15)
[2022-06-25] MEDS: FUROSEMIDE 40 MG/4 ML VIAL IVP SCH (09:11)
[2022-06-25] MEDS: FOLIC ACID 1 MG TAB PO SCH (09:12)
[2022-06-25] MEDS: THIAMINE 100 MG TAB PO SCH (09:12)
[2022-06-25] MEDS: MULTIVITAMIN/MINERALS 1 TAB PO SCH (09:12)
[2022-06-25] MEDS: SPIRONOLACTONE 50 MG TAB PO SCH (09:13)
[2022-06-25] MEDS: LACTULOSE 20 GM/30 ML UDC PO SCH (09:13)
[2022-06-25] MEDS: FERROUS SULFATE 325 MG TABEC PO SCH (09:14)
[2022-06-25] MEDS: ACETAMINOPHEN 325 MG TAB PO PRN (09:15)
[2022-06-25] MEDS: GABAPENTIN 100 MG CAP PO SCH (09:15)
[2022-06-25] MEDS: PENTOXIFYLLINE 400 MG TABER PO SCH (09:27)
[2022-06-25] MEDS ORDERED: SPIR50TA PO (10:24)
[2022-06-25] MEDS ORDERED: CHLO5CAP86 PO (10:24)
[2022-06-25] MEDS ORDERED: FURO40TA9 PO (10:24)
[2022-06-25 10:38] VITALS: BP 115/55
[2022-06-25 10:45] VITALS: BP 115/55
--- NOTE | 2022-06-25 12:03 | NUR ---
PATIENT DISCHARGED PER ORDER,DISCHARGE INSTRUCTIONS GIVEN.RIDE TO HOME ARRANGED .VITALS ARE STABLE.NO OTHER DISTRESS NOTED
== END 2022-06-25 12:50 | disposition home or self-care (01) | DRG 280 ==
LOC: MED 18:56 → MMU 22:11
PROVIDERS: ADMIT Family Medicine; ATTEND Family Medicine
DX: K70.30 Alcoholic cirrhosis of liver without ascites (principal); J69.0 Pneumonitis due to inhalation of food and vomit; I50.23 Acute on chronic systolic (congestive) heart failure; I21.A1 Myocardial infarction type 2; E72.20 Disorder of urea cycle metabolism, unspecified; E46 Unspecified protein-calorie malnutrition; E83.51 Hypocalcemia; D69.6 Thrombocytopenia, unspecified; D63.8 Anemia in other chronic diseases classified elsewhere; K76.6 Portal hypertension; I11.0 Hypertensive heart disease with heart failure; E87.8 Other disorders of electrolyte and fluid balance, not elsewhere classified; D72.819 Decreased white blood cell count, unspecified; E83.42 Hypomagnesemia; R06.03 Acute respiratory distress; F10.20 Alcohol dependence, uncomplicated; Y90.9 Presence of alcohol in blood, level not specified; Z20.822 Contact with and (suspected) exposure to COVID-19; F41.9 Anxiety disorder, unspecified; Z79.899 Other long term (current) drug therapy; Z79.1 Long term (current) use of non-steroidal anti-inflammatories (NSAID); Z91.199 Patient's noncompliance with other medical treatment and regimen due to unspecified reason; J44.1 Chronic obstructive pulmonary disease with (acute) exacerbation
CPT/HCPCS: 36415; 71045; 76700; 80048; 80053; 81001; 82140; 83735; 83880; 84484; 85025; 87081; 87086; 93005; 94010; 94640; 96374; 99285; J1940; J2001; J2060; J2270; J2405; J2543; J3475; J3480; J7030; J7060; J7613; Q0092

== ENCOUNTER 2022-08-04 06:25 | Inpatient (IN) | payer MEDICAID ==
[~2022-08-04] VITALS: Ht 180.3 cm; Wt 81.6 kg
[2022-08-04 06:25] VITALS: BP 122/83
[~2022-08-04 06:25] MED LIST changes: +CHLO5CAP86 PO; +LACT-58 PO; -LACT10SO11 PO; -LACT10SO40 PO; -PRED20TA5 PO
--- NOTE | 2022-08-04 06:38 | NUR ---
biba to bed #5
--- NOTE | 2022-08-04 06:44 | NUR ---
SHE IS HERE FOR THE SOB SINCE TUESDAY EVENING., MUSCLE PAIN 02/22. PT ALERT ORINETED X 4.
--- NOTE | 2022-08-04 06:52 | NUR ---
MEDICAL HISTORY CHF AND LIVER PROBLEM
[2022-08-04] MEDS ORDERED: KETOROLAC 30 MG/ML VIAL IVP ONE (07:00)
--- NOTE | 2022-08-04 07:25 | NUR ---
REPORT RECEIVED FROM ZAHEER GRAJEDA. ASSUMED CARE AT THIS TIME
[2022-08-04] MEDS ORDERED: PROCHLORPERAZINE 10 MG/2 ML VIAL IVP ONE (07:40)
[2022-08-04] MEDS ORDERED: diphenhydrAMINE 50 MG/ML VIAL IVP ONE (07:40)
[2022-08-04] MEDS ORDERED: MORPHINE SULFATE 2 MG/ML SYR IVP ONE (07:40)
--- NOTE | 2022-08-04 07:45 | NUR ---
46YO FEMALE PT BIBA HOME C/O SOB , CHEST PAIN AND GEN BODY ACHES X4DAYS. REPORTS SUDDEN ONSET. MOIST COUGH PRESENT. ON 2L VIA NC. DENIES N/V/D, FEVER OR CHILLS. 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 HX: CIRRHOSIS, ESRD, HTN NKA
[2022-08-04 07:52] LABS: BASOPHILS % (AUTO) 0.3 % (0.0-2.0); EOSINOPHILS # (AUTO) 0.1 K/uL (0-0.4); EOSINOPHILS % (AUTO) 2.7 % (0.0-4.0); HEMATOCRIT 23.6 % (36-48); HEMOGLOBIN 8.1 g/dL (12.0-16.0); LYMPHOCYTES # (AUTO) 0.7 K/uL (2.5-16.5); LYMPHOCYTES % (AUTO) 17.9 % (20.5-51.1); MEAN CORPUSCULAR HEMOGLOBIN 38 pg (27-31); MEAN CORPUSCULAR HGB CONC 34 g/dL (33-37); MEAN CORPUSCULAR VOLUME 112.5 fL (80-94); MONOCYTES # (AUTO) 0.4 K/uL (0.8-1.0); MONOCYTES % (AUTO) 11.3 % (1.7-9.3); NEUTROPHILS # (AUTO) 2.6 K/uL (1.8-7.7); NEUTROPHILS % (AUTO) 67.8 % (42.2-75.2); PLATELET COUNT (AUTO) 45 K/uL (140-450); RED CELL DISTRIBUTION WIDTH 15.9 % (11.6-13.7)
[2022-08-04 08:15] LABS: WHITE BLOOD COUNT (AUTO) 3.8 K/uL (4.8-10.8)
[2022-08-04 08:16] LABS: PROTHROMBIN TIME 17.7 secs (10.8-13.4)
[2022-08-04 08:18] LABS: LIPASE 169 U/L (73-393)
[2022-08-04 08:31] LABS: ANION GAP 7.9 (8-16); CARBON DIOXIDE 30.5 mmol/L (21-32); CREATININE 0.7 mg/dL (0.6-1.3); POTASSIUM 3.4 mmol/L (3.5-5.1); TOTAL BILIRUBIN 13.6 mg/dL (0.0-1.0)
[2022-08-04 08:54] LABS: ALBUMIN 2.3 g/dL (3.4-5.0)
[2022-08-04] MEDS ORDERED: NITROGLYCERIN 2% 1 GM PKT TP ONE (09:10)
[2022-08-04] MEDS ORDERED: FUROSEMIDE 40 MG/4 ML VIAL IVP ONE (09:10)
--- NOTE | 2022-08-04 09:22 | NUR ---
attempted med req. pt unable to recall all meds. "they should be on there from the last time".
--- NOTE | 2022-08-04 09:27 | NUR ---
pt swabbed for covid(santo). walked to lab
--- NOTE | 2022-08-04 09:58 | NUR ---
HOLDING FUROSEMIDE AT THIS TIME, BP CHECK AT 104/47
--- NOTE | 2022-08-04 10:18 | NUR ---
DR. MALDONADO, ADMITTING DOCTOR, EVALUATING PATIENT AT BEDSIDE.
[2022-08-04] MEDS ORDERED: ONDANSETRON 4 MG/2 ML VIAL IVP PRN (11:15)
[2022-08-04] MEDS ORDERED: ACETAMINOPHEN 325 MG TAB PO PRN (11:15)
--- NOTE | 2022-08-04 11:53 | NUR ---
Patient will be admitted to care of MD MALDONADO. Admited to M/S. Will go to room 126A. Belongings list completed. Report to KEN GRAJEDA .
--- NOTE | 2022-08-04 12:08 | NUR ---
The patient's care was reviewed and supervised by Leisa Au, RN, RN.
[2022-08-04] MEDS: SPIRONOLACTONE 25 MG TAB PO SCH ×2 (12:10→17:00)
[2022-08-04] MEDS: FUROSEMIDE 20 MG TAB PO SCH (12:10)
--- NOTE | 2022-08-04 12:30 | NUR ---
RECIEVED PATIENT FROM ER, AMBULATORY AOX4
[2022-08-04] MEDS: HYDROcodone/APAP 5/325 MG 1 TAB TAB PO PRN ×2 (14:52→23:25)
[2022-08-04 16:00] VITALS: BP 116/59
--- NOTE | 2022-08-04 16:22 | NUR ---
PATIENT HAS BEEN SCREENED AND CATEGORIZED MODERATE NUTRITION RISK. PATIENT WILL BE SEEN WITHIN 3-5 DAYS OF ADMISSION. / REVIEWED BY ARMANDO BURNHAM RD
--- NOTE | 2022-08-04 19:28 | NUR ---
ENDORSED PATIENT TO PM NURSE FOR CONTINUITY OF CARE.
--- NOTE | 2022-08-04 19:30 | NUR ---
RECEIVED PT FROM AM NURSE FOR CONTINUITY OF CARE. PT IS STABLE
[2022-08-04 20:00] VITALS: BP 124/72
[2022-08-04] MEDS ORDERED: POTASSIUM CHLORIDE 10 MEQ TABER PO ONE (22:35)
[2022-08-05] VITALS: BP 123/73
--- NOTE | 2022-08-05 01:00 | NUR ---
PATIENT SLEEPING COMFORTABLY, NO S/SX OF DISTRESS NOTED
[2022-08-05 04:00] VITALS: BP 129/78
[2022-08-05 06:13] LABS: BASOPHILS % (AUTO) 0.2 % (0.0-2.0); EOSINOPHILS # (AUTO) 0.2 K/uL (0-0.4); EOSINOPHILS % (AUTO) 4.4 % (0.0-4.0); HEMATOCRIT 22.8 % (36-48); HEMOGLOBIN 7.7 g/dL (12.0-16.0); LYMPHOCYTES # (AUTO) 0.8 K/uL (2.5-16.5); LYMPHOCYTES % (AUTO) 20.9 % (20.5-51.1); MEAN CORPUSCULAR HEMOGLOBIN 38 pg (27-31); MEAN CORPUSCULAR HGB CONC 34 g/dL (33-37); MEAN CORPUSCULAR VOLUME 112.4 fL (80-94); MONOCYTES # (AUTO) 0.4 K/uL (0.8-1.0); MONOCYTES % (AUTO) 10.4 % (1.7-9.3); NEUTROPHILS # (AUTO) 2.5 K/uL (1.8-7.7); NEUTROPHILS % (AUTO) 64.1 % (42.2-75.2); PLATELET COUNT (AUTO) 45 K/uL (140-450); RED BLOOD CELL COUNT(AUTO) 2.03 MIL/uL (4.20-5.40); RED CELL DISTRIBUTION WIDTH 16.1 % (11.6-13.7)
[2022-08-05 06:54] LABS: ALBUMIN 2.1 g/dL (3.4-5.0); ANION GAP 8.9 (8-16); CARBON DIOXIDE 32.3 mmol/L (21-32); CREATININE 0.9 mg/dL (0.6-1.3); POTASSIUM 4.2 mmol/L (3.5-5.1); TOTAL BILIRUBIN 13.1 mg/dL (0.0-1.0)
--- NOTE | 2022-08-05 07:15 | NUR ---
ASSUMED CONTINUITY OF CARE. INITIAL ASSESSMENT DONE. KEEP COMFORTABLE ON BED. CALL LIGHT WITHIN REACH.
[2022-08-05 08:00] VITALS: BP 122/77
[2022-08-05] MEDS ORDERED: MAG SULF 2000 MG/WATER PREMIX 50 ML IV SCH (09:00)
[2022-08-05] MEDS: SPIRONOLACTONE 25 MG TAB PO SCH (09:53)
[2022-08-05] MEDS: FUROSEMIDE 20 MG TAB PO SCH (09:53)
[2022-08-05] MEDS: HYDROcodone/APAP 5/325 MG 1 TAB TAB PO PRN (10:05)
[2022-08-05] MEDS ORDERED: LACT-58 PO (13:01)
[2022-08-05] MEDS ORDERED: AMIT25TA29 PO (13:01)
[2022-08-05] MEDS ORDERED: FERR325E14 PO (13:01)
[2022-08-05] MEDS ORDERED: LORA-476 PO (13:01)
[2022-08-05] MEDS ORDERED: GABA100C PO (13:01)
[2022-08-05] MEDS ORDERED: THIA-34 PO (13:01)
[2022-08-05] MEDS ORDERED: SPIR50TA PO (13:01)
[2022-08-05] MEDS ORDERED: FURO40TA9 PO (13:01)
[2022-08-05] MEDS ORDERED: FOLI1TAB90 PO (13:01)
--- NOTE | 2022-08-05 14:46 | NUR ---
CALLED DENISA TATUM AND VERIFY DR. 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 PER DACIA, PT. OK TO D/C NOW. INFORMED CHARGE NURSE LOBO POLANCO.
--- NOTE | 2022-08-05 16:10 | NUR ---
D/C HOME VIA WHEELCHAIR. IN STABLE CONDITION. INFORMED CHARGE NURSE LOBO POLANCO.
== END 2022-08-05 16:10 | disposition home or self-care (01) | DRG 194 ==
LOC: MED 06:25 → MMU 11:18 → MTU 11:43
PROVIDERS: ADMIT Hospitalist; ATTEND Hospitalist
DX: I11.0 Hypertensive heart disease with heart failure (principal); K70.31 Alcoholic cirrhosis of liver with ascites; E44.0 Moderate protein-calorie malnutrition; R65.10 Systemic inflammatory response syndrome (SIRS) of non-infectious origin without acute organ dysfunction; J90 Pleural effusion, not elsewhere classified; K72.10 Chronic hepatic failure without coma; Z20.822 Contact with and (suspected) exposure to COVID-19; F41.9 Anxiety disorder, unspecified; F32.A Depression, unspecified; Z91.199 Patient's noncompliance with other medical treatment and regimen due to unspecified reason; Z68.25 Body mass index [BMI] 25.0-25.9, adult; I50.9 Heart failure, unspecified
CPT/HCPCS: 36415; 71045; 80053; 82140; 83690; 83735; 83880; 84484; 85025; 85610; 85730; 87081; 93005; 96374; 96375; 99291; J0780; J1200; J1885; J1940; J2270; J3475; Q0092